=== PATIENT | female | born 1940 | race Caucasian/White ===

== ENCOUNTER 2016-11-30 13:04 | Inpatient (IN) | payer MEDICARE ==
[2016-11-30] VITALS (16 sets, daily range): BP systolic 82–220; BP diastolic 44–88; PULSE 77–102; RESP 12–16; TEMP 97.8–98.1; O2SAT 95–100
[~2016-11-30] VITALS: Ht 154.9 cm; Wt 39.5 kg
[~2016-11-30 13:04] MED LIST: ALPR-138 PO; ASPI1TAB7 PO; AZIT250T43 PO; CALCTAB98 PO; CLAR10TA7 PO; CYCL-36 PO; FERR325T PO; LEXA10TA PO; LORTA5 PO; LOSA50TA PO; MEGE40TA PO; METO25 PO; ONDAN4 PO; PRIL20CA PO; PROC10TA4 PO; SODI650T PO; STOO100T PO; TAB-TAB PO; TEMA15 PO; ULTR50TA PO
[2016-11-30] MEDS ORDERED: SODIUM CHLOR 0.9% 1000 ML INJ 1,000 ML IV SCH (14:33)
[2016-11-30] MEDS ORDERED: NALOXONE HCL 2 MG/2 ML VIAL ONE (14:35)
[2016-11-30] MEDS ORDERED: SUCCINYLCHOLINE CHLORIDE 200 MG/10 ML VIAL ONE (14:40)
[2016-11-30] MEDS ORDERED: ETOMIDATE 20 MG/10 ML VIAL ONE (14:40)
[2016-11-30] MEDS ORDERED: SODIUM CHLORIDE 0.9% FLUSH 10 ML FLUSH IVF PRN (14:45)
[2016-11-30] MEDS ORDERED: NALOXONE HCL 2 MG/2 ML VIAL IV PUSH ONE (14:45)
[2016-11-30] MEDS ORDERED: ETOMIDATE 20 MG/10 ML VIAL IVP ONE (15:00)
[2016-11-30] MEDS ORDERED: SUCCINYLCHOLINE CHLORIDE 200 MG/10 ML VIAL IVP ONE (15:00)
[2016-11-30 15:17] LABS: AUTOMATED NEUTROPHIL # 11.5 TH/MM3 (1.8-7.7); BASOPHIL # 0.1 TH/MM3 (0-0.2); BASOPHIL % 0.5 % (0.0-2.0); EOSINOPHIL # 0.1 TH/MM3 (0-0.4); EOSINOPHIL % 0.9 % (0.0-4.0); HEMATOCRIT 28.4 % (35.0-46.0); HEMO FLAGS DIFF FINAL; LYMPHOCYTE # 2.3 TH/MM3 (1.0-4.8); MEAN CELL VOLUME 88.5 FL (80.0-100.0); MEAN CORPUSCULAR HEMOGLOBIN 28.2 PG (27.0-34.0); MEAN CORPUSCULAR HGB CONC 31.8 % (32.0-36.0); NEUT % 76.6 % (16.0-70.0); PLATELET COUNT 534 TH/MM3 (150-450); RED BLOOD COUNT 3.21 MIL/MM3 (4.00-5.30); RED CELL DISTRIBUTION WIDTH 15.9 % (11.6-17.2); WHITE BLOOD COUNT 15.1 TH/MM3 (4.0-11.0)
[2016-11-30 15:23] LABS: BACTERIA, URINE RARE /hpf; BLOOD, URINE NEG (NEG); GLUCOSE,URINE NEG (NEG); GRANULAR CAST, URINE 1 /lpf; KETONE, URINE NEG (NEG); MUCUS URINE FEW /lpf (OCC); NITRITE,URINE NEG (NEG); URINE COLOR YELLOW (YELLW/STRAW)
[2016-11-30 15:24] LABS: COMMENT (UR) CATH-CULTURE IND; CULTURE IF INDICATED CATH CULTURE IND
[2016-11-30 15:36] LABS: APTT (PATIENT) 21.9 SEC (24.3-30.1); PROTHROMBIN TIME - PATIENT 10.9 SEC (9.8-11.6)
--- NOTE | 2016-11-30 15:43 | RADRPT ---
EXAM DATE/TIME: 11/30/2016 15:06 [facility] COMPARISON: CHEST SINGLE AP, March 08, 2015, 2:26. INDICATIONS : Weakness, intubation. MEDICAL HISTORY : Cardiovascular disease. Hypertension SURGICAL HISTORY : None. ENCOUNTER: Initial ACUITY: 1 day PAIN SCORE: Non-responsive. LOCATION: Bilateral chest FINDINGS: There is amorphous calcification involving the left rotator cuff. Slight focal consolidation is seen in the left lung base posteriorly. Heart and mediastinum are unremarkable for technique. There are at herosclerotic calcifications involving the visualized aorta chronic in nature. CONCLUSION: Left lung base consolidation. Rey Hernandez MD on November 30, 2016 at 15:39 Board Certified Radiologist. This report was verified electronically.
[2016-11-30 15:47] LABS: BLOOD GAS BASE EXCESS -12.5 mmol/L (-2-2); BLOOD GAS CARBOXYHEMOGLOBIN 0.6 % (0-4); BLOOD GAS HCO3 12 mmol/L (22-26); BLOOD GAS METHEMOGLOBIN 0.3 % (0-2); BLOOD GAS O2 HGB SATURATION 99 % (90-100); BLOOD GAS PCO2 23 mmHg (38-42); BLOOD GAS PO2 452 mmHG (61-120); BLOOD GAS TOTAL HGB 8.5 G/DL (12.0-16.0); TEMP CORR TO 98.6
[2016-11-30 15:49] LABS: CRITICAL VALUE YES; DRAW SITE LT RADIAL; FIO2 100 %; NUMBER OF ARTERIAL PUNCTURES 1; OXYGEN DEVICE VENTILATOR; STAT YES; ULNAR PULSE Y; VENT SETTINGS AC/VT400/R14/PEEP5
[2016-11-30 15:52] LABS: ACETAMINOPHEN 25.4 MCG/ML (10.0-30.0); ALKALINE PHOSPHATASE 59 U/L (45-117); ALT (GPT) 9 U/L (10-53); ANION GAP 14 MEQ/L (5-15); AST (GOT) 11 U/L (15-37); BICARBONATE 14.8 MEQ/L (21.0-32.0); BLOOD UREA NITROGEN 16 MG/DL (7-18); CHLORIDE 108 MEQ/L (98-107); GLOMERULAR FILTRATION RATE 70 ML/MIN (>89); SODIUM (NA) 137 MEQ/L (136-145); TOTAL BILIRUBIN ADULT 0.2 MG/DL (0.2-1.0)
[2016-11-30 15:54] LABS: POTASSIUM 2.6 MEQ/L (3.5-5.1)
[2016-11-30] MEDS ORDERED: VANCOMYCIN INJ 1,000 MG in SODIUM CHLOR 0.9% 250 ML INJ 250 ML IV ONE (16:00)
[2016-11-30] MEDS ORDERED: SODIUM CHLOR 0.9% 1000 ML INJ 1,000 ML IV ONE (16:00)
[2016-11-30] MEDS ORDERED: CEFEPIME INJ 2,000 MG in SODIUM CHLORIDE 0.9% INJ 100 ML IV ONE (16:00)
--- NOTE | 2016-11-30 16:20 | PD ---
HPI Chief Complaint: Altered Mental Status Time Seen by Provider: 14:33 Travel History International Travel<30 days: No Contact w/Intl Traveler<30days: No Traveled to known affect area: No History of Present Illness HPI 76 year-old woman presents to the emergency department complaining of lethargy. Apparently patient was relatively normal this morning. Family members a roommate called this afternoon after they found her progressively less responsive. She had her medications with her including pain pills and benzodiazepines. Speaking with the daughter, they report that she went with her to her last primary care physician several days ago and they were in a try to wean her down on her medicines. With EMS patient did intermittently gets some endorsement of intentional overdose. On arrival to the ED, patient is completely obtunded, with no response to any stimuli. She is unable to provide any additional history. History Past Medical History Narrative Medical Hypertension Anemia GERD Menopausal: Yes Social History Alcohol Use: Yes (occasionally ) Tobacco Use: No Allergies-Medications (Allergen,Severity, Reaction): Coded Allergies: Cipro (Unverified Allergy, Severe, THRUSH, 10/05/15) Demerol (Verified Allergy, Severe, Nausea/Vomiting, 10/05/15) Lortab (Verified Allergy, Severe, convulsion, 10/05/15) Morphine (Verified Allergy, Severe, VOMITING, 10/05/15) Percocet (Verified Allergy, Severe, CONVULSION, 10/05/15) Reglan (Verified Adverse Reaction, Intermediate, ANXIETY, 10/05/15) *MDRO Multi-Drug Resistant Organism (Verified Adverse Reaction, Unknown, ) 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 Reported Meds & Prescriptions Reported Meds & Active Scripts Active Reported Allergy (Loratadine) 10 Mg Tab 10 Multi Vitamin (Multiple Vitamin) 1 Tab Tab 1 Tab PO DAILY Aspirin 81 Mg Chew 81 Mg CHEW DAILY Calcium (Oyster Shell) 500 Mg Tab Stool Softener (Docusate Sodium) 100 Mg Cap Iron (Ferrous Fumarate) 18 Mg Tab 18 Mg PO BID Alprazolam 0.25 Mg Tab 0.25 Mg PO Q4H PRN Megestrol (Megestrol Acetate) 40 Mg Tab 40 Mg PO QID Sodium Bicarbonate 650 Mg Tab 650 Mg PO BIDPC Flexeril (Cyclobenzaprine HCl) 10 Mg Tab 10 Mg PO TID Metoprolol Tartrate 25 Mg Tab 25 Mg PO BID Prochlorperazine Maleate 10 Mg Tab 10 Mg PO Q4H PRN Temazepam 15 Mg Cap 15 Mg PO HS PRN Hydrocodone-Acetaminophen 5-325 mg Tab 1 Tab PO Q4H PRN Losartan (Losartan Potassium) 50 Mg Tab 50 Mg PO DAILY Omeprazole 20 Mg Tab 20 Mg PO DAILY Zinc (Zinc Gluconate) 50 Mg Tab B Complex Plus (B-Complex W/ Folic Acid) 1 Tab 1 Tab PO Review of Systems Except as stated in HPI: all other systems reviewed are Neg Physical Exam Narrative GENERAL: Ill-appearing 76 year-old woman, obtunded, pale. SKIN: Focused skin assessment cool. Dry. HEAD: Atraumatic. Normocephalic. EYES: Pupils equal and round. Pupils are about 2-3 mm. No scleral icterus. No injection or drainage. ENT: No nasal bleeding or discharge. Mucous membranes pink and moist. NECK: Trachea midline. No JVD. CARDIOVASCULAR: Regular rate and rhythm. No murmur appreciated. RESPIRATORY: Respiratory rate about 12-14, ventilation appears adequate. GASTROINTESTINAL: Abdomen flat and soft. No grimace with deep palpation. MUSCULOSKELETAL: No obvious deformities. Decreased muscle bulk. No edema. NEUROLOGICAL: Obtunded. No response to any stimuli. Data Data Last Documented VS Vital Signs Date Time Temp Pulse Resp B/P Pulse Ox O2 Delivery O2 Flow Rate FiO2 11/30/16 17:00 80 14 132/62 100 Auto-Vent 50 11/30/16 14:40 2 11/30/16 14:32 97.8 Orders Electrocardiogram (11/30/16 14:33) Complete Blood Count With Diff (11/30/16 14:33) Comprehensive Metabolic Panel (11/30/16 14:33) Prothrombin Time / Inr (Pt) (11/30/16 14:33) Act Partial Throm Time (Ptt) (11/30/16 14:33) Troponin I (11/30/16 14:33) Thyroid Stimulating Hormone (11/30/16 14:33) Lactic Acid Sepsis Protocol (11/30/16 14:33) Urinalysis - C+S If Indicated (11/30/16 14:33) Arterial Blood Gas (Abg) (11/30/16 14:33) Chest, Single Ap (11/30/16 14:33) Ct Brain W/O Iv Contrast(Rout) (11/30/16 14:33) Blood Glucose (11/30/16 14:33) Ecg Monitoring (11/30/16 14:33) Iv Access Insert/Monitor (11/30/16 14:33) Oximetry (11/30/16 14:33) Sodium Chloride 0.9% Flush (Ns Flush) (11/30/16 14:45) Sodium Chlor 0.9% 1000 Ml Inj (Ns 1000 M (11/30/16 14:33) Drug Screen, Random Urine (11/30/16 14:33) Alcohol (Ethanol) (11/30/16 14:33) Salicylates (Aspirin) (11/30/16 14:33) Tylenol (Acetaminophen) (11/30/16 14:33) Naloxone Inj (Narcan Inj) (11/30/16 14:45) Naloxone Inj (Narcan Inj) (11/30/16 14:35) Etomidate Inj (Amidate Inj) (11/30/16 14:40) Succinylcholine Inj (Quelicin Inj) (11/30/16 14:40) Ng Gastric Tube Insert/Monitor (11/30/16 15:00) Urinary Catheter Insert/Apply (11/30/16 15:00) Etomidate Inj (Amidate Inj) (11/30/16 15:00) Succinylcholine Inj (Quelicin Inj) (11/30/16 15:00) Restraints Non-Violent ODESSA.Q3H (11/30/16 15:00) Urine Culture (11/30/16 14:55) Blood Culture (11/30/16 15:57) Vancomycin Inj (Vancomycin Inj) (11/30/16 16:00) Cefepime Inj (Maxipime Inj) (11/30/16 16:00) Sodium Chlor 0.9% 1000 Ml Inj (Ns 1000 M (11/30/16 16:00) Potassium Chlor 20 Meq Premix (Kcl 20 Me (11/30/16 16:00) Admit To Inpatient (11/30/16 ) Code Status (11/30/16 17:06) Vital Signs (Adult) ODESSA.Q1H (11/30/16 17:06) Activity Bed Rest (11/30/16 17:06) ^ Elevate Head Of Bed (11/30/16 17:06) Neuro Checks . ORDERED (11/30/16 17:06) Intake + Output Q1H (11/30/16 17:06) Bedside Glucose ODESSA.BGM (11/30/16 17:06) Pantoprazole Inj (Protonix Inj) (11/30/16 17:15) Albuterol-Ipratropium Neb (Duoneb Neb) (11/30/16 17:15) Complete Blood Count With Diff (12/01/16 04:00) Basic Metabolic Panel (Bmp) (12/01/16 04:00) Magnesium (Mg) (12/01/16 04:00) Phosphorus (Po4) (12/01/16 04:00) Sputum Culture And Gram Stain (11/30/16 17:06) Camouflage Specialist / Telemetry ODESSA.Q8H (11/30/16 17:06) Scd Bilateral/Knee High ODESSA.BID (11/30/16 17:06) ^ Initiate Protocol (11/30/16 17:06) ^ Instruction (11/30/16 17:06) [facility] [place] [facility] [place] (11/30/16 17:15) Chlorhexidine 2% Cloth (Chlorhexidine 2% (12/01/16 04:00) Chlorhexidine 2% Cloth (Chlorhexidine 2% (11/30/16 17:15) Mrsa Pcr Surveillance (11/30/16 17:06) Inpatient Certification (11/30/16 ) ^ Medication Admin Instruction (11/30/16 17:08) Notify Dr: Other (11/30/16 17:08) Phosphorus (Po4) (11/30/16 17:08) Potassium Chlor 40 Meq Premix (Kcl 40 Me (11/30/16 17:15) Potassium Chlor 20 Meq Premix (Kcl 20 Me (11/30/16 17:15) Potassium Chloride Eff (K-Lyte Cl Eff) (11/30/16 17:15) Potassium Chlor 40 Meq Premix (Kcl 40 Me (11/30/16 17:15) Potassium Chlor 20 Meq Premix (Kcl 20 Me (11/30/16 17:15) Magnesium Sulfate Inj (Magnesium Sulfate (11/30/16 17:15) Magnesium Oxide (Mag-Ox) (11/30/16 17:15) Magnesium Sulfate Inj (Magnesium Sulfate (11/30/16 17:15) Potassium Phosphate (K-Phos) (11/30/16 17:15) Sodium Phosphate Inj (Sodium Phosphate I (11/30/16 17:15) Potassium Phosphate (K-Phos) (11/30/16 17:15) Potassium Phosphate Inj (Potassium Phosp (11/30/16 17:15) Drug Screen, Random Urine (11/30/16 17:10) Legionella Urinary Antigen (11/30/16 17:10) Pneumococcal Urinary Antigen (11/30/16 17:10) Blood Glucose Goal (Criteria) (11/30/16 17:10) Hypoglycemia 51 - 69 Mg/Dl (11/30/16 17:10) Hypoglycemia 50 Mg/Dl Or < (11/30/16 17:10) Notify Dr: Other (11/30/16 17:10) Dextrose 50% In [place] (Vial) Inj (D50w (Vi (11/30/16 17:15) Glucagon Inj (Glucagon Inj) (11/30/16 17:15) Insulin Human Reg Supp Scale (Novolin R (11/30/16 18:00) Piperacil-Tazo 4.5 Gm Premix (Zosyn 4.5 (11/30/16 17:15) Arterial Blood Gas (Abg) (11/30/16 20:00) Sodium Bicarbonate 8.4% Inj (Sodium Bica (11/30/16 17:15) Basic Metabolic Panel (Bmp) (11/30/16 22:00) Vancomycin Inj (Vancomycin Inj) (12/01/16 05:00) Labs Laboratory Tests Test 11/30/16 11/30/16 11/30/16 11/30/16 14:45 14:55 15:30 16:10 Salicylates Level LESS THAN 1.7 MG/DL White Blood Count 15.1 TH/MM3 Red Blood Count 3.21 MIL/MM3 Hemoglobin 9.0 GM/DL Hematocrit 28.4 % Mean Corpuscular Volume 88.5 FL Mean Corpuscular Hemoglobin 28.2 PG Mean Corpuscular Hemoglobin 31.8 % Concent Red Cell Distribution Width 15.9 % Platelet Count 534 TH/MM3 Mean Platelet Volume 8.1 FL Neutrophils (%) (Auto) 76.6 % Lymphocytes (%) (Auto) 15.0 % Monocytes (%) (Auto) 7.0 % Eosinophils (%) (Auto) 0.9 % Basophils (%) (Auto) 0.5 % Neutrophils # (Auto) 11.5 TH/MM3 Lymphocytes # (Auto) 2.3 TH/MM3 Monocytes # (Auto) 1.1 TH/MM3 Eosinophils # (Auto) 0.1 TH/MM3 Basophils # (Auto) 0.1 TH/MM3 CBC Comment DIFF FINAL Differential Comment Prothrombin Time 10.9 SEC Prothromb Time International 1.0 RATIO Ratio Activated Partial 21.9 SEC Thromboplast Time Urine Color YELLOW Urine Turbidity HAZY Urine pH 6.0 Urine Specific [place] 1.017 Urine Protein NEG mg/dL Urine Glucose (UA) NEG mg/dL Urine Ketones NEG mg/dL Urine Occult Blood NEG Urine Nitrite NEG Urine Bilirubin NEG Urine Urobilinogen LESS THAN 2.0 MG/DL Urine Leukocyte Esterase NEG Urine RBC 6 /hpf Urine WBC 3 /hpf Urine Bacteria RARE /hpf Urine Granular Casts 1 /lpf Urine Mucus FEW /lpf Microscopic Urinalysis Comment CATH-CULTURE IND Sodium Level 137 MEQ/L Potassium Level 2.6 MEQ/L Chloride Level 108 MEQ/L Carbon Dioxide Level 14.8 MEQ/L Anion Gap 14 MEQ/L Blood Urea Nitrogen 16 MG/DL Creatinine 0.79 MG/DL Estimat Glomerular Filtration 70 ML/MIN Rate Random Glucose 118 MG/DL Calcium Level 7.5 MG/DL Total Bilirubin 0.2 MG/DL Aspartate Amino Transf 11 U/L (AST/SGOT) Alanine Aminotransferase 9 U/L (ALT/SGPT) Alkaline Phosphatase 59 U/L Troponin I LESS THAN 0.02 NG/ML Total Protein 4.8 GM/DL Albumin 2.0 GM/DL Thyroid Stimulating Hormone 1.220 uIU/ML 3rd Gen Acetaminophen Level 25.4 MCG/ML Ethyl Alcohol Level LESS THAN 3 MG/DL Blood Gas Puncture Site LT RADIAL Blood Gas Patient Temperature 98.6 Blood Gas HCO3 12 mmol/L Blood Gas Base Excess -12.5 mmol/L Blood Gas Oxygen Saturation 99 % Arterial Blood pH 7.35 Arterial Blood Partial 23 mmHg Pressure CO2 Arterial Blood Partial 452 mmHG Pressure O2 Arterial Blood Oxygen Content 13.0 Vol % Arterial Blood 0.6 % Carboxyhemoglobin Arterial Blood Methemoglobin 0.3 % Blood Gas Hemoglobin 8.5 G/DL Oxygen Delivery Device VENTILATOR Blood Gas Ventilator Setting AC/VT400/R14/PEEP5 Blood Gas Inspired Oxygen 100 % Lactic Acid Level 1.7 mmol/L MDM Medical Decision Making Medical Screen Exam Complete: Yes Emergency Medical Condition: Yes Interpretation(s) LABS: CBC remarkable for mild leukocytosis, mild to moderate anemia. CMP low potassium, low bicarbonate, TSH normal Coags unremarkable Salicylates negative Acetaminophen 25.4 Alcohol less than 3 UA unremarkable ABG 7.35/23/452/12, base excess -12.5 Chest x-ray: Left lung base consolidation. My review of EKG: Normal sinus rhythm at rate of 78, normal axis, normal, no ischemia. Differential Diagnosis Overdose, stroke, bleed, infection, other Narrative Course medical decision making This 76 year-old woman who presented to the emergency department with increasing lethargy. She was obtunded when she presented to the ED. She is breathing adequately but had no gag reflex, was tolerating an oral airway, and was imminent risk for not protecting her airway. She was given 2 mg of Narcan but without significant improvement. Still no gag reflex. Given her condition , I thought the most prudent thing to do would be to proceed with intubation for airway protection. She was intubated with 20 of the etomidate and 100 mg succinylcholine. She tolerated well. Studies show white blood cell count is elevated, she has a metabolic acidosis, she'll be empirically covered for sepsis given some infiltrate on her chest x-ray. Patient be admitted to the ICU for overdose and possible aspiration. Critical Care Narrative Aggregate critical care time was 35 minutes. Time to perform other separately billable procedures was not included in the critical care time. My time did not include minutes spent treating any other patients simultaneously or on activities that did not directly contribute to the patient's treatment. The services I provided to this patient were to treat and/or prevent clinically significant deterioration that could result in: , respiratory failure, unrecognized head injury, unrecognized stroke. I provided critical care services requiring my management, as noted below: Chart data review, documentation time, medication orders and management, vital sign assessments/reviewing monitor data, ordering and reviewing lab tests, ordering and interpreting/reviewing x-rays and diagnostic studies, care of the patient and discussion of the patient with the admitting physicians. Procedures Procedure Narrative INTUBATION: The patient was put in optimal position for the procedure. Rapid sequence intubation was initiated by me using 20 milligrams of etomidate IV and 100 milligrams of succinylcholine IV. The patient was intubated with a 7.0 cuffed endotracheal tube. Tube placement was confirmed by visualization of the tube and balloon passing through the cords, capnometry and subsequent chest x- ray. Breath sounds were equal and well aerated bilaterally postintubation. No breath sounds over stomach. Patient tolerated procedure well. Diagnosis Primary Impression: Coma Qualified Code: R40.2432 - Patty coma scale total score 3-8, at arrival to emergency department Admitting Information Admitting Physician Requests: Admit Vu Villatoro MD Nov 30, 2016 16:20
[2016-11-30] MEDS: POTASSIUM CHLOR 20 MEQ PREMIX 100 ML IV SCH ×2 (16:45→18:50)
[2016-11-30] MEDS ORDERED: POTASSIUM CHLORIDE 25 MEQ EFFERVESCENT TAB PO PRN (17:15)
[2016-11-30] MEDS ORDERED: MISCELLANEOUS NURSING INFORMATION XX SCH (17:15)
[2016-11-30] MEDS ORDERED: POTASSIUM PHOSPHATE MONOBASIC 500 MG TAB PO PRN (17:15)
[2016-11-30] MEDS ORDERED: MAGNESIUM OXIDE 400 MG TAB PO PRN (17:15)
[2016-11-30] MEDS ORDERED: GLUCAGON 1 MG/ML VIAL OTHER PRN (17:15)
[2016-11-30] MEDS ORDERED: SODIUM PHOSPHATE INJ 30 MMOL in SODIUM CHLOR 0.9% 250 ML INJ 240 ML IV PRN (17:15)
[2016-11-30] MEDS ORDERED: POTASSIUM CHLOR 40 MEQ PREMIX 100 ML IV PRN ×2 (17:15)
[2016-11-30] MEDS ORDERED: POTASSIUM PHOSPHATE MONOBASIC 500 MG TAB PO/TUBE PRN (17:15)
[2016-11-30] MEDS ORDERED: SODIUM BICARBONATE 8.4% INJ 50 MEQ/50 ML SYR IV PUSH ONE (17:15)
[2016-11-30] MEDS: RESP: ALBUTEROL 2.5 MG/IPRATROPIUM 0.5 MG NEB (SCH) INH ×2 (17:15→20:55)
[2016-11-30] MEDS ORDERED: CHLORHEXIDINE GLUCONATE 2 % 1 PACK (2 CLOTHS) TOP PRN (17:15)
[2016-11-30] MEDS ORDERED: POTASSIUM PHOSPHATE INJ 30 MMOL in SODIUM CHLOR 0.9% 250 ML INJ 250 ML IV PRN (17:15)
[2016-11-30] MEDS ORDERED: MAGNESIUM SULFATE INJ 2 GM in SODIUM CHLORIDE 0.9% INJ 96 ML IV PRN (17:15)
[2016-11-30] MEDS ORDERED: POTASSIUM CHLOR 20 MEQ PREMIX 100 ML IV PRN (17:15)
[2016-11-30] MEDS ORDERED: DEXTROSE 50% IN WATER 50 ML VIAL(D50) IV PUSH PRN (17:15)
[2016-11-30] MEDS ORDERED: MAGNESIUM SULFATE INJ 4 GM in SODIUM CHLORIDE 0.9% INJ 92 ML IV PRN (17:15)
[2016-11-30] MEDS ORDERED: STOO100C (17:23)
[2016-11-30] MEDS ORDERED: CALC500T35 (17:23)
[2016-11-30] MEDS ORDERED: CHEL50TA (17:23)
[2016-11-30] MEDS ORDERED: CYCL1TAB29 PO (17:23)
[2016-11-30] MEDS ORDERED: LOSA50TA PO (17:23)
[2016-11-30] MEDS ORDERED: LORA-520 (17:23)
[2016-11-30] MEDS ORDERED: HYDR-3516 PO (17:23)
[2016-11-30] MEDS ORDERED: OMEP20TA PO (17:23)
[2016-11-30] MEDS ORDERED: TEMA15CA PO (17:23)
[2016-11-30] MEDS ORDERED: IRON18TA2 PO (17:23)
[2016-11-30] MEDS ORDERED: SODI650T PO (17:23)
[2016-11-30] MEDS ORDERED: ASPI81CH CHEW (17:23)
[2016-11-30] MEDS ORDERED: MEGE40TA PO (17:23)
[2016-11-30] MEDS ORDERED: METO25TA3 PO (17:23)
[2016-11-30] MEDS ORDERED: B COTAB PO (17:23)
[2016-11-30] MEDS ORDERED: PROC10TA PO (17:23)
[2016-11-30] MEDS ORDERED: MULT-135 PO (17:23)
[2016-11-30] MEDS ORDERED: ALPR0.25 PO (17:23)
[2016-11-30] MEDS: INSULIN NovoLIN REGULAR SUPPLEMENTAL SCALE SQ SCH (18:00)
--- NOTE | 2016-11-30 18:05 | EKG ---
Date Performed: 11/30/2016 Time Performed: 15:47:57 PTAGE: 76 years EKG: Sinus rhythm NORMAL ECG COMPARED TO PRIOR ELECTROCARDIOGRAM, Rate has slowed. PREVIOUS TRACING : 04/21/2015 14.45 DOCTOR: Paloo Desai Interpretating Date/Time 11/30/2016 18:04:18
[2016-11-30] MEDS: SODIUM BICARBONATE 8.4% INJ 100 MEQ in DEXTROSE 5% IN WATE 1000ML INJ 1,000 ML IV SCH ×2 (18:41)
[2016-11-30] MEDS: PANTOPRAZOLE SODIUM 40 MG VIAL IV SCH (18:41)
[2016-11-30] MEDS: PIPERACIL-TAZO 4.5 GM PREMIX 100 ML IV SCH (18:51)
[2016-11-30] MEDS: PROPOFOL 1000 MG/100 ML INJ 100 ML IV SCH (18:56)
--- NOTE | 2016-11-30 18:57 | MH ---
cc: NEIL SARAH M.D. DATE OF ADMISSION 11/30/2016 DATE OF 1940 HISTORY OF THE PRESENT ILLNESS The patient is a 76-year-old female with past medical history of hypertension, anemia, gastroesophageal reflux disease who presented to [facility] ED with history of lethargy and altered mental status. Family found her progressively less responsive throughout the day. She has been on pain medications including benzodiazepines. On arrival to the ER she was completely obtunded with no response to any stimuli. The patient was subsequently intubated with etomidate, succinylcholine and placed on full mechanical ventilation. In addition she was given Narcan 2 mg IV in the ER with no response. ABG post intubation showed a pH of 7.35, CO2 23, pAO2 of 452, bicarb 12, saturation of 99%. On arrival she was hypertensive with a systolic blood pressure of 170/200 and a chest x-ray post intubation showed left lung base consolidation. She was given cefepime and vancomycin in the ER. Her laboratory data significant for leukocytosis with a WBC of 15.1, hyperkalemia, potassium level of 2.6 and a bicarb of 14.8 on the BMP. Her lactic acid level measured at 1.7. PAST MEDICAL HISTORY Significant for: 1. Hypertension. 2. Anemia. 3. Gastroesophageal reflux disease. 4. Osteopenia. 5. Osteoarthritis. 6. Vitamin D deficiency. PAST SURGICAL HISTORY 1. Previous Jackie fundoplication for gastroesophageal reflux disease. 2. Previous arthroscopy left knee. 3. Left breast lumpectomy. 4. Previous right total knee arthroplasty. 5. Previous cholecystectomy. 6. Previous right rotator cuff repair. 7. Previous L4-L5 decompressive laminectomy. 8. Fusion with fixation in September 2009. FAMILY HISTORY COPD, CVA, Parkinson's disease runs in the family. SOCIAL HISTORY The patient has remote history of smoking. MEDICATIONS Reported medications include: 1. Losartan. 2. Sodium bicarb. 3. Megestrol. 4. Xanax. 5. Temazepam. 6. Metoprolol. 7. Ferrous sulfate. 8. Vitamin B complex with folic acid. 9. Multivitamins. 10. Aspirin. 11. Omeprazole. REVIEW OF SYSTEMS As per HPI. The rest of the review of systems limited as the patient is intubated. PHYSICAL EXAMINATION GENERAL: A 76-year-old female intubated for airway protection. VITAL SIGNS: Temperature 97.8, pulse of 81, blood pressure 132/62, saturation 100%. Vent settings assist control rate of 14, tidal volume 400, PEEP of 5, FIO2 50%. HEENT: Atraumatic, normocephalic. Pupils equal, round and reactive to light and accommodation. Extraocular muscles intact. Conjunctivae pink. Nonicteric sclerae. Oral mucosa within normal. NECK: Supple. No JVD, adenopathy or thyromegaly. Trachea midline. CARDIOVASCULAR: Regular rate and rhythm. Normal S1-S2. No murmurs, rubs or gallops noted. LUNGS: Pulmonary exam bilateral equal air entry. No rales or wheezing. ABDOMEN: Soft, nontender. No distension. Positive bowel sounds. EXTREMITIES: No cyanosis, clubbing or edema. NEUROLOGIC: Intubated. Unresponsive. LABORATORY DATA WBC 15.1, hemoglobin 9, hematocrit 28, platelet count 534. Sodium 137, potassium 2.6, chloride 108, CO2 14, BUN 16, creatinine 0.79, glucose 118, lactic acid 1.7. Troponin less than 0.02. Albumin 2. TSH 1.22. INR 1.0, PT 10.9, PTT 21.9. IMAGING Radiographic studies, a chest x-ray showed left lung base consolidation. IMPRESSION 1. Vent dependent respiratory failure. 2. Altered mental status. 3. Left lung base consolidation. 4. Leukocytosis. 5. Anemia. 6. Hypokalemia. 7. Hypertension. 8. Gastroesophageal reflux disease. RECOMMENDATIONS 1. Monitor neuro status closely and avoid any sedatives. The patient is for CT scan of the brain without contrast to rule out acute intracranial process. In addition we will obtain random urine drug screen. Her salicylate level was less than 1.7, Tylenol level 25.4 and alcohol level less than 3. 2. Continue with vent support and maintain sats above 92%. 3. Bronchodilators in the form of DuoNeb q.6h. We will initiate ICU vent bundle. Decrease FIO2 to 40%. 4. Monitor heart rate and blood pressure closely and maintain MAP greater than 65 mmHg. Lactic acid level measured at 1.7. 5. Monitor renal function Is and Os and electrolyte replacement per protocol. We will place on bicarb drip in form of D5W with 2 ampules of bicarb at 125 ml an hour and we will repeat BMP at 2200. Place on electrolyte replacement protocol. 6. Keep n.p.o. for now and place on Protonix 40 mg IV daily for GI prophylaxis. 7. Continue with broad-spectrum antibiotics in the form of vancomycin and Zosyn. Monitor for signs of infections which include fever and WBC. We will obtain a sputum culture with gram stain. In addition we will check a strep pneumonia and Legionella urinary antigen. Two sets of blood culture and urine culture has been performed in the ER and the patient was given vancomycin and cefepime. 8. Place on sliding scale insulin with Accu-Cheks q.6h for glycemic control. 9. Monitor CBC. 10. GI prophylaxis with Protonix 40 mg IV daily and DVT prophylaxis with SCDs. Place on chemical anticoagulation prophylaxis if CT scan of the brain is negative for acute process. Critical care time 40 minutes excluding procedures. MD SAVI Buitrago/RAJ /5:50 PM /6:38 PM
[2016-11-30 19:43] LABS: BLOOD GAS CARBOXYHEMOGLOBIN 0.3 % (0-4); BLOOD GAS HCO3 19 mmol/L (22-26); BLOOD GAS METHEMOGLOBIN 0.2 % (0-2); BLOOD GAS O2 HGB SATURATION 98 % (90-100); BLOOD GAS PCO2 26 mmHg (38-42); BLOOD GAS PO2 179 mmHG (61-120); BLOOD GAS TOTAL HGB 7.7 G/DL (12.0-16.0); TEMP CORR TO 98.6
[2016-11-30 19:44] LABS: CRITICAL VALUE NO; DRAW SITE LT RADIAL; FIO2 40 %; NUMBER OF ARTERIAL PUNCTURES 1; OXYGEN DEVICE VENTILATOR; STAT YES; ULNAR PULSE PRESENT; VENT SETTINGS AC/14/400/PEEP5
--- NOTE | 2016-11-30 22:48 | RADRPT ---
EXAM DATE/TIME: 11/30/2016 22:33 [facility] COMPARISON: CT BRAIN W/O CONTRAST, October 05, 2015, 20:23. INDICATIONS : Lethargy, unresponsive, altered mental status. RADIATION DOSE: 30.91 CTDIvol (mGy) MEDICAL HISTORY : Hypertension. Cardiovascular disease SURGICAL HISTORY : None. ENCOUNTER: Initial ACUITY: 1 day PAIN SCALE: Non-responsive LOCATION: cranial TECHNIQUE: Multiple contiguous axial images were obtained of the head. Using automated exposure control and adj ustment of the mA and/or kV according to patient size, radiation dose was kept as low as reasonably a chievable to obtain optimal diagnostic quality images. FINDINGS: CEREBRUM: The ventricles are normal for age. No evidence of midline shift, mass lesion, hemorrhage or acute in farction. No extra-axial fluid collections are seen. POSTERIOR FOSSA: The cerebellum and brainstem are intact. The 4th ventricle is midline. The cerebellopontine angle i s unremarkable. EXTRACRANIAL: The visualized portion of the orbits is intact. SKULL: The calvaria is intact. No evidence of skull fracture. CONCLUSION: Normal examination. Diffuse atrophy. Vu Brooks MD on November 30, 2016 at 22:46 Board Certified Radiologist. This report was verified electronically.
--- NOTE | 2016-11-30 22:54 | RADRPT ---
EXAM DATE/TIME: 11/30/2016 22:28 [facility] COMPARISON: CHEST SINGLE AP, November 30, 2016, 15:06. INDICATIONS : Respiratory distress. MEDICAL HISTORY : Cardiovascular disease. Hypertension. SURGICAL HISTORY : None. ENCOUNTER: Subsequent ACUITY: 1 day PAIN SCORE: Non-responsive. LOCATION: Bilateral chest FINDINGS: Endotracheal tube tip appears to have been advanced in the interim and now extends slightly down the right mainstem bronchus. No infiltrate, effusion or pneumothorax. Stable, normal heart size. CONCLUSION: Endotracheal tube tip in the right mainstem bronchus and should be pulled back several centimeters. T he patient's nurse in the emergency department, Paramjit, was notified by phone. Dima Sandoval MD on November 30, 2016 at 22:48 Board Certified Radiologist. This report was verified electronically.
[2016-12-01] VITALS (26 sets, daily range): BP systolic 76–156; BP diastolic 44–78; PULSE 91–134; RESP 11–26; TEMP 98–99.5; O2SAT 97–100
[2016-12-01] MEDS ORDERED: MIDAZOLAM 100 MG/ML INJ 100 ML ONE (00:48)
[2016-12-01] MEDS: PIPERACIL-TAZO 4.5 GM PREMIX 100 ML IV SCH ×3 (01:04→11:05)
[2016-12-01] MEDS ORDERED: MIDAZOLAM 100 MG/NS 100 ML DRIP Premix IV SCH (01:15)
[2016-12-01] MEDS: CHLORHEXIDINE GLUCONATE 2 % 1 PACK (2 CLOTHS) TOP SCH (02:00)
[2016-12-01] MEDS: RESP: ALBUTEROL 2.5 MG/IPRATROPIUM 0.5 MG NEB (SCH) INH ×4 (03:31→20:52)
[2016-12-01] MEDS: VANCOMYCIN INJ 1,000 MG in SODIUM CHLOR 0.9% 250 ML INJ 250 ML IV SCH ×2 (04:29→16:32)
[2016-12-01] MEDS: SODIUM BICARBONATE 8.4% INJ 100 MEQ in DEXTROSE 5% IN WATE 1000ML INJ 1,000 ML IV SCH ×4 (04:30→10:53)
[2016-12-01 05:04] LABS: MAGNESIUM 1.7 MG/DL (1.5-2.5)
[2016-12-01 05:09] LABS: AUTOMATED NEUTROPHIL # 15.2 TH/MM3 (1.8-7.7); BASOPHIL # 0.1 TH/MM3 (0-0.2); BASOPHIL % 0.5 % (0.0-2.0); EOSINOPHIL # 0.3 TH/MM3 (0-0.4); EOSINOPHIL % 1.6 % (0.0-4.0); HEMATOCRIT 26.1 % (35.0-46.0); HEMO FLAGS DIFF FINAL; LYMPH % 12.3 % (9.0-44.0); LYMPHOCYTE # 2.4 TH/MM3 (1.0-4.8); MEAN CELL VOLUME 90.2 FL (80.0-100.0); MEAN CORPUSCULAR HEMOGLOBIN 29.1 PG (27.0-34.0); MEAN CORPUSCULAR HGB CONC 32.2 % (32.0-36.0); MONO % 8.2 % (0.0-8.0); NEUT % 77.4 % (16.0-70.0); PLATELET COUNT 271 TH/MM3 (150-450); RED CELL DISTRIBUTION WIDTH 16.4 % (11.6-17.2); WHITE BLOOD COUNT 19.6 TH/MM3 (4.0-11.0)
[2016-12-01] MEDS: INSULIN NovoLIN REGULAR SUPPLEMENTAL SCALE SQ SCH ×5 (05:14→23:27)
[2016-12-01 05:51] LABS: AMPHETAMINE, URINE NEG (NEG); BARBITURATES, URINE NEG (NEG); COCAINE, URINE NEG (NEG)
[2016-12-01] MEDS: POTASSIUM CHLORIDE 20 MEQ PWD PACKET PO SCH ×4 (05:57→17:41)
--- NOTE | 2016-12-01 07:39 | HHI.CCPN ---
Subjective Remarks/Hospital Course The patient is a 76-year-old female with past medical history of hypertension, anemia, gastroesophageal reflux disease who presented to [facility] ED with history of lethargy and altered mental status. Family found her progressively less responsive throughout the day. She has been on pain medications including benzodiazepines. On arrival to the ER she was completely obtunded with no response to any stimuli. The patient was subsequently intubated with etomidate, succinylcholine and placed on full mechanical ventilation. In addition she was given Narcan 2 mg IV in the ER with no response. ABG post intubation showed a pH of 7.35, CO2 23, pAO2 of 452, bicarb 12, saturation of 99%. On arrival she was hypertensive with a systolic blood pressure of 170/200 and a chest x-ray post intubation showed left lung base consolidation. She was given cefepime and vancomycin in the ER. Her laboratory data significant for leukocytosis with a WBC of 15.1, hyperkalemia, potassium level of 2.6 and a bicarb of 14.8 on the BMP. Her lactic acid level measured at 1.7. 12/01 Patient is sedated with Versed and intubated. Afebrile. Objective Vital Signs Date Time Temp Pulse Resp B/P Pulse Ox O2 Delivery O2 Flow Rate FiO2 12/01/16 06:00 106 12/01/16 04:02 97 35 12/01/16 04:00 98.2 18 108/56 12/01/16 01:30 Ventilator 11/30/16 14:40 2 Intake and Output 11/30/16 11/30/16 12/01/16 08:00 16:00 00:00 Output Total 700 ml Balance -700 ml Result Diagram: 12/01/16 0404 12/01/16 0643 Other Results Laboratory Tests Test 11/30/16 11/30/16 11/30/16 11/30/16 14:45 14:55 15:30 16:10 Salicylates Level LESS THAN 1.7 MG/DL White Blood Count 15.1 TH/MM3 Red Blood Count 3.21 MIL/MM3 Hemoglobin 9.0 GM/DL Hematocrit 28.4 % Mean Corpuscular Volume 88.5 FL Mean Corpuscular Hemoglobin 28.2 PG Mean Corpuscular Hemoglobin 31.8 % Concent Red Cell Distribution Width 15.9 % Platelet Count 534 TH/MM3 Mean Platelet Volume 8.1 FL Neutrophils (%) (Auto) 76.6 % Lymphocytes (%) (Auto) 15.0 % Monocytes (%) (Auto) 7.0 % Eosinophils (%) (Auto) 0.9 % Basophils (%) (Auto) 0.5 % Neutrophils # (Auto) 11.5 TH/MM3 Lymphocytes # (Auto) 2.3 TH/MM3 Monocytes # (Auto) 1.1 TH/MM3 Eosinophils # (Auto) 0.1 TH/MM3 Basophils # (Auto) 0.1 TH/MM3 CBC Comment DIFF FINAL Differential Comment Prothrombin Time 10.9 SEC Prothromb Time International 1.0 RATIO Ratio Activated Partial 21.9 SEC Thromboplast Time Urine Color YELLOW Urine Turbidity HAZY Urine pH 6.0 Urine Specific [place] 1.017 Urine Protein NEG mg/dL Urine Glucose (UA) NEG mg/dL Urine Ketones NEG mg/dL Urine Occult Blood NEG Urine Nitrite NEG Urine Bilirubin NEG Urine Urobilinogen LESS THAN 2.0 MG/DL Urine Leukocyte Esterase NEG Urine RBC 6 /hpf Urine WBC 3 /hpf Urine Bacteria RARE /hpf Urine Granular Casts 1 /lpf Urine Mucus FEW /lpf Microscopic Urinalysis Comment CATH-CULTURE IND Sodium Level 137 MEQ/L Potassium Level 2.6 MEQ/L Chloride Level 108 MEQ/L Carbon Dioxide Level 14.8 MEQ/L Anion Gap 14 MEQ/L Blood Urea Nitrogen 16 MG/DL Creatinine 0.79 MG/DL Estimat Glomerular Filtration 70 ML/MIN Rate Random Glucose 118 MG/DL Calcium Level 7.5 MG/DL Phosphorus Level 3.7 MG/DL Total Bilirubin 0.2 MG/DL Aspartate Amino Transf 11 U/L (AST/SGOT) Alanine Aminotransferase 9 U/L (ALT/SGPT) Alkaline Phosphatase 59 U/L Troponin I LESS THAN 0.02 NG/ML Total Protein 4.8 GM/DL Albumin 2.0 GM/DL Thyroid Stimulating Hormone 1.220 uIU/ML 3rd Gen Acetaminophen Level 25.4 MCG/ML Ethyl Alcohol Level LESS THAN 3 MG/DL Blood Gas Puncture Site LT RADIAL Blood Gas Patient Temperature 98.6 Blood Gas HCO3 12 mmol/L Blood Gas Base Excess -12.5 mmol/L Blood Gas Oxygen Saturation 99 % Arterial Blood pH 7.35 Arterial Blood Partial 23 mmHg Pressure CO2 Arterial Blood Partial 452 mmHG Pressure O2 Arterial Blood Oxygen Content 13.0 Vol % Arterial Blood 0.6 % Carboxyhemoglobin Arterial Blood Methemoglobin 0.3 % Blood Gas Hemoglobin 8.5 G/DL Oxygen Delivery Device VENTILATOR Blood Gas Ventilator Setting AC/VT400/R14/PEEP5 Blood Gas Inspired Oxygen 100 % Lactic Acid Level 1.7 mmol/L Test 11/30/16 12/01/16 12/01/16 12/01/16 19:31 01:45 04:04 04:55 Blood Gas Puncture Site LT RADIAL Blood Gas Patient Temperature 98.6 Blood Gas HCO3 19 mmol/L Blood Gas Base Excess -4.0 mmol/L Blood Gas Oxygen Saturation 98 % Arterial Blood pH 7.47 Arterial Blood Partial 26 mmHg Pressure CO2 Arterial Blood Partial 179 mmHG Pressure O2 Arterial Blood Oxygen Content 11.0 Vol % Arterial Blood 0.3 % Carboxyhemoglobin Arterial Blood Methemoglobin 0.2 % Blood Gas Hemoglobin 7.7 G/DL Oxygen Delivery Device VENTILATOR Blood Gas Ventilator Setting AC/14/400/PEEP5 Blood Gas Inspired Oxygen 40 % Nasal Screen MRSA (PCR) NEGATIVE White Blood Count 19.6 TH/MM3 Red Blood Count 2.90 MIL/MM3 Hemoglobin 8.4 GM/DL Hematocrit 26.1 % Mean Corpuscular Volume 90.2 FL Mean Corpuscular Hemoglobin 29.1 PG Mean Corpuscular Hemoglobin 32.2 % Concent Red Cell Distribution Width 16.4 % Platelet Count 271 TH/MM3 Mean Platelet Volume 8.5 FL Neutrophils (%) (Auto) 77.4 % Lymphocytes (%) (Auto) 12.3 % Monocytes (%) (Auto) 8.2 % Eosinophils (%) (Auto) 1.6 % Basophils (%) (Auto) 0.5 % Neutrophils # (Auto) 15.2 TH/MM3 Lymphocytes # (Auto) 2.4 TH/MM3 Monocytes # (Auto) 1.6 TH/MM3 Eosinophils # (Auto) 0.3 TH/MM3 Basophils # (Auto) 0.1 TH/MM3 CBC Comment DIFF FINAL Differential Comment Hematology Comments Urine Opiates Screen POS Urine Barbiturates Screen NEG Urine Amphetamines Screen NEG Urine Benzodiazepines Screen POS Urine Cocaine Screen NEG Urine Cannabinoids Screen NEG Test 12/01/16 06:43 Sodium Level 140 MEQ/L Potassium Level 2.5 MEQ/L Chloride Level 111 MEQ/L Carbon Dioxide Level 14.4 MEQ/L Anion Gap 15 MEQ/L Blood Urea Nitrogen 14 MG/DL Creatinine 0.79 MG/DL Estimat Glomerular Filtration 70 ML/MIN Rate Random Glucose 112 MG/DL Calcium Level 6.8 MG/DL Phosphorus Level 2.5 MG/DL Magnesium Level 1.7 MG/DL Imaging Last Impressions Head CT 11/30/16 1433 Signed Impressions: Service Date/Time: Wednesday, November 30, 2016 22:33 - CONCLUSION: Normal examination. Diffuse atrophy. Vu Brooks MD Chest X-Ray 11/30/16 1433 Signed Impressions: Service Date/Time: Wednesday, November 30, 2016 15:06 - CONCLUSION: Left lung base consolidation. Rey Hernandez MD Objective Remarks GENERAL: Patient is 76 yo intubated and sedated SKIN: Warm and dry. HEAD: Normocephalic. EYES: No scleral icterus. No injection or drainage. NECK: Supple, trachea midline. No JVD or lymphadenopathy. CARDIOVASCULAR: Regular rate and rhythm without murmurs, gallops, or rubs. RESPIRATORY: Breath sounds equal bilaterally. No accessory muscle use. GASTROINTESTINAL: Abdomen soft, non-tender, nondistended. MUSCULOSKELETAL: No cyanosis, or edema. Neuro: Sedated A/P Assessment and Plan 1. VDRF 2. Altered mental status. 3. Left lung base consolidation. 4. Leukocytosis. 5. Anemia. 6. Hypokalemia. 7. Hypertension. 8. GERD. Plan Neuro: On Versed drip for sedation. Daily sedation vacation. Monitor neuro status closely CT brain on arrival: No acte process. UDS + Opiates and Benzos Pulm: Continue with vent support and maintain sats above 92%. Bronchodilators, ICU vent bundle. Start SBT daily as nanda CV: Monitor HR and BP and maintain MAP >65 mmHg. Lactic acid level measured at 1.7. : Monitor renal function Is and Os and electrolyte replacement per protocol. WIll need K replacement today Continue with bicarb drip- D5W with 2 ampules of bicarb at 125 ml an hour GI: Keep n.p.o. for now, on Protonix 40 mg IV daily for GI prophylaxis. Start tube feeds today if remains intubated. ID: Continue with abx( vancomycin,Zosyn, add Zithromax). Monitor for signs of infections(fever and WBC). We Obtain a sputum culture, follow up on strep pneumonia, Legionella urinary antigen and Blood cultures Endo:SSI with Accu-Cheks q.6h for glycemic control. Heme: Monitor CBC. GI prophylaxis with Protonix 40 mg IV daily and DVT prophylaxis with SCDs/ Heparin SQ Level 3 Ken [place] MD Dec 01, 2016 07:39
[2016-12-01 07:50] LABS: CALCIUM-PROTEIN CORRECTED 8.5 MG/DL (8.5-10.1)
[2016-12-01 07:51] LABS: BICARBONATE 20.3 MEQ/L (21.0-32.0)
[2016-12-01 07:53] LABS: POTASSIUM 2.5 MEQ/L (3.5-5.1)
--- NOTE | 2016-12-01 08:25 | RADRPT ---
EXAM DATE/TIME: 12/01/2016 07:48 [place] COMPARISON: CHEST SINGLE AP, November 30, 2016, 22:28. INDICATIONS : VDRF. MEDICAL HISTORY : Cardiovascular disease. Hypertension SURGICAL HISTORY : None. ENCOUNTER: Subsequent ACUITY: 3 days PAIN SCORE: Non-responsive. LOCATION: Bilateral chest FINDINGS: The endotracheal tube remains directed into the right mainstem bronchus. Nasogastric tube is stable p osition. Lungs remain well expanded and clear. Heart mediastinal structures are stable. CONCLUSION: Tip of endotracheal tube remains at the orifice of the right mainstem bronchus. Otherwise stable chest. No evidence of acute air space disease or congestion. Khadar Amaro MD on December 01, 2016 at 8:22 Board Certified Radiologist. This report was verified electronically.
[2016-12-01] MEDS: AZITHROMYCIN INJ 500 MG in SODIUM CHLOR 0.9% 250 ML INJ 250 ML IV SCH (08:54)
[2016-12-01] MEDS: PANTOPRAZOLE SODIUM 40 MG VIAL IV SCH (08:55)
[2016-12-01] MEDS ORDERED: SODIUM CHLORID 0.9% 500 ML INJ 500 ML IV ONE (11:30)
[2016-12-01] MEDS: DEXT 5%-NACL 0.9% 1000 ML INJ 1,000 ML IV SCH (12:15)
[2016-12-01 15:09] LABS: BICARBONATE 19.4 MEQ/L (21.0-32.0)
[2016-12-01 15:20] LABS: CALCIUM-PROTEIN CORRECTED 7.9 MG/DL (8.5-10.1)
[2016-12-01 15:23] LABS: POTASSIUM 2.7 MEQ/L (3.5-5.1)
[2016-12-01] MEDS: HEPARIN SODIUM - SQ 10,000 UNITS/ML VIAL SQ SCH (16:32)
[2016-12-01] MEDS ORDERED: Vancomycin Consult Pharmacy 1 EA OTHER SCH (17:00)
[2016-12-01] MEDS: PIPERACIL-TAZO 3.375 GM PREMIX 50 ML IV SCH (17:44)
[2016-12-01] MEDS ORDERED: PIPERACIL-TAZO 3.375 GM PREMIX 50 ML IV SCH (18:00)
[2016-12-01] MEDS ORDERED: CALCIUM GLUCONATE INJ 1 GM in SODIUM CHLORIDE 0.9% INJ 100 ML IV ONE (18:00)
[2016-12-01] MEDS: PROPOFOL 1000 MG/100 ML INJ 100 ML IV SCH (19:06)
[2016-12-02] VITALS (17 sets, daily range): BP systolic 114–151; BP diastolic 57–72; PULSE 91–127; RESP 18–26; TEMP 98.1–99.5; O2SAT 95–100
[2016-12-02] MEDS: PIPERACIL-TAZO 3.375 GM PREMIX 50 ML IV SCH ×5 (00:01→23:00)
[2016-12-02] MEDS: DEXT 5%-NACL 0.9% 1000 ML INJ 1,000 ML IV SCH (00:01)
[2016-12-02] MEDS: PROPOFOL 1000 MG/100 ML INJ 100 ML IV SCH (01:58)
[2016-12-02] MEDS: RESP: ALBUTEROL 2.5 MG/IPRATROPIUM 0.5 MG NEB (SCH) INH ×4 (03:21→20:46)
[2016-12-02] MEDS: CHLORHEXIDINE GLUCONATE 2 % 1 PACK (2 CLOTHS) TOP SCH ×2 (04:00→23:00)
[2016-12-02 05:19] LABS: AUTOMATED NEUTROPHIL # 13.8 TH/MM3 (1.8-7.7); BASOPHIL # 0.1 TH/MM3 (0-0.2); BASOPHIL % 0.5 % (0.0-2.0); EOSINOPHIL # 0.3 TH/MM3 (0-0.4); EOSINOPHIL % 1.9 % (0.0-4.0); HEMATOCRIT 24.6 % (35.0-46.0); HEMO FLAGS DIFF FINAL; LYMPH % 9.8 % (9.0-44.0); LYMPHOCYTE # 1.6 TH/MM3 (1.0-4.8); MEAN CELL VOLUME 87.6 FL (80.0-100.0); MEAN CORPUSCULAR HEMOGLOBIN 29.4 PG (27.0-34.0); MEAN CORPUSCULAR HGB CONC 33.5 % (32.0-36.0); MONO % 6.2 % (0.0-8.0); NEUT % 81.6 % (16.0-70.0); PLATELET COUNT 439 TH/MM3 (150-450); RED BLOOD COUNT 2.81 MIL/MM3 (4.00-5.30); RED CELL DISTRIBUTION WIDTH 16.5 % (11.6-17.2); WHITE BLOOD COUNT 16.9 TH/MM3 (4.0-11.0)
[2016-12-02] MEDS: INSULIN NovoLIN REGULAR SUPPLEMENTAL SCALE SQ SCH ×4 (06:00→22:59)
[2016-12-02 06:04] LABS: MAGNESIUM 1.6 MG/DL (1.5-2.5); POTASSIUM 3.7 MEQ/L (3.5-5.1)
[2016-12-02] MEDS: HEPARIN SODIUM - SQ 10,000 UNITS/ML VIAL SQ SCH ×2 (06:08→17:28)
[2016-12-02 06:26] LABS: CALCIUM-PROTEIN CORRECTED 8.8 MG/DL (8.5-10.1)
--- NOTE | 2016-12-02 07:38 | HHI.CCPN ---
Subjective Remarks/Hospital Course The patient is a 76-year-old female with past medical history of hypertension, anemia, gastroesophageal reflux disease who presented to [facility] ED with history of lethargy and altered mental status. Family found her progressively less responsive throughout the day. She has been on pain medications including benzodiazepines. On arrival to the ER she was completely obtunded with no response to any stimuli. The patient was subsequently intubated with etomidate, succinylcholine and placed on full mechanical ventilation. In addition she was given Narcan 2 mg IV in the ER with no response. ABG post intubation showed a pH of 7.35, CO2 23, pAO2 of 452, bicarb 12, saturation of 99%. On arrival she was hypertensive with a systolic blood pressure of 170/200 and a chest x-ray post intubation showed left lung base consolidation. She was given cefepime and vancomycin in the ER. Her laboratory data significant for leukocytosis with a WBC of 15.1, hyperkalemia, potassium level of 2.6 and a bicarb of 14.8 on the BMP. Her lactic acid level measured at 1.7. 12/01 Patient is sedated with Versed and intubated. Afebrile. 12/02 No acute events overnight. Sedated with Diprivan and intubated. Tolerated CPAP for several hrs yesterday . Objective Vital Signs Date Time Temp Pulse Resp B/P Pulse Ox O2 Delivery O2 Flow Rate FiO2 12/02/16 06:00 125 12/02/16 04:10 100 35 12/02/16 04:00 99.5 23 135/62 12/01/16 01:30 Ventilator 11/30/16 14:40 2 Intake and Output 12/01/16 12/01/16 12/02/16 08:00 16:00 00:00 Intake Total 1088 ml 2060 ml 704 ml Output Total 400 ml 250 ml 225 ml Balance 688 ml 1810 ml 479 ml Result Diagram: 12/02/16 0420 12/02/16 0420 Other Results Laboratory Tests Test 12/01/16 12/01/16 12/02/16 14:05 20:05 04:20 Sodium Level 139 MEQ/L 142 MEQ/L Potassium Level 2.7 MEQ/L 3.6 MEQ/L 3.7 MEQ/L Chloride Level 107 MEQ/L 111 MEQ/L Carbon Dioxide Level 19.4 MEQ/L 21.0 MEQ/L Anion Gap 13 MEQ/L 10 MEQ/L Blood Urea Nitrogen 12 MG/DL 11 MG/DL Creatinine 0.70 MG/DL 0.73 MG/DL Estimat Glomerular Filtration 81 ML/MIN 77 ML/MIN Rate Random Glucose 124 MG/DL 112 MG/DL Calcium Level 6.3 MG/DL 7.1 MG/DL Protein Corrected Calcium 7.9 MG/DL 8.8 MG/DL Total Protein 4.0 GM/DL 4.1 GM/DL White Blood Count 16.9 TH/MM3 Red Blood Count 2.81 MIL/MM3 Hemoglobin 8.3 GM/DL Hematocrit 24.6 % Mean Corpuscular Volume 87.6 FL Mean Corpuscular Hemoglobin 29.4 PG Mean Corpuscular Hemoglobin 33.5 % Concent Red Cell Distribution Width 16.5 % Platelet Count 439 TH/MM3 Mean Platelet Volume 8.2 FL Neutrophils (%) (Auto) 81.6 % Lymphocytes (%) (Auto) 9.8 % Monocytes (%) (Auto) 6.2 % Eosinophils (%) (Auto) 1.9 % Basophils (%) (Auto) 0.5 % Neutrophils # (Auto) 13.8 TH/MM3 Lymphocytes # (Auto) 1.6 TH/MM3 Monocytes # (Auto) 1.0 TH/MM3 Eosinophils # (Auto) 0.3 TH/MM3 Basophils # (Auto) 0.1 TH/MM3 CBC Comment DIFF FINAL Differential Comment Phosphorus Level 1.6 MG/DL Magnesium Level 1.6 MG/DL Random Vancomycin Level 21.8 COMMENT Imaging Last Impressions Chest X-Ray 12/01/16 0000 Signed Impressions: Service Date/Time: Thursday, December 01, 2016 07:48 - CONCLUSION: Tip of endotracheal tube remains at the orifice of the right mainstem bronchus. Otherwise stable chest. No evidence of acute air space disease or congestion. Khadar Amaro MD Head CT 11/30/16 1433 Signed Impressions: Service Date/Time: Wednesday, November 30, 2016 22:33 - CONCLUSION: Normal examination. Diffuse atrophy. Vu Brooks MD Objective Remarks GENERAL: Patient is 76 yo intubated and sedated SKIN: Warm and dry. HEAD: Normocephalic. EYES: No scleral icterus. No injection or drainage. NECK: Supple, trachea midline. No JVD or lymphadenopathy. CARDIOVASCULAR: Tachycardic without murmurs, gallops, or rubs. RESPIRATORY: Breath sounds equal bilaterally. No accessory muscle use. GASTROINTESTINAL: Abdomen soft, non-tender, nondistended. MUSCULOSKELETAL: No cyanosis, or edema. Neuro: Sedated A/P Assessment and Plan 1. VDRF 2. Altered mental status. 3. Left lung base consolidation. 4. Leukocytosis. 5. Anemia. 6. Hypokalemia. 7. Hypertension. 8. GERD. Plan Neuro: On Diprivan drip for sedation. Daily sedation vacation. Monitor neuro status closely CT brain on arrival: No acute process. UDS + Opiates and Benzos Psych consult once extubated. Pulm: Continue with vent support and maintain sats above 92%. Bronchodilators, ICU vent bundle. SBT daily as nanda CV: Monitor HR and BP and maintain MAP >65 mmHg. Lactic acid level measured at 1.7. Place on Lopressor 25mg BID. : Monitor renal function Is and Os and electrolyte replacement per protocol. WIll need phos replacement today d/c IVF GI: Start tube feeds- Glucerna 1.5 with goal rate 45ml/hr, on Protonix 40 mg IV daily for GI prophylaxis. ID: Continue with abx( vancomycin,Zosyn, Zithromax). Monitor for signs of infections(fever and WBC). strep pneumonia, Legionella urinary antigen negative, Urine cx: GNR. BC:NGTD Endo:SSI with Accu-Cheks q.6h for glycemic control. Heme: Monitor CBC. GI prophylaxis with Protonix 40 mg IV daily and DVT prophylaxis with SCDs/ Heparin SQ Addendum: Patient s/p extubation on 2L oxygen with good sats. Start PO diet per speech. Will sign off and transfer care to [facility] Level 3 Ken [place] MD Dec 02, 2016 07:38
[2016-12-02] MEDS: PANTOPRAZOLE SODIUM 40 MG VIAL IV SCH (09:21)
[2016-12-02] MEDS: AZITHROMYCIN INJ 500 MG in SODIUM CHLOR 0.9% 250 ML INJ 250 ML IV SCH (09:22)
[2016-12-02] MEDS: METOPROLOL TARTRATE 25 MG TAB PO SCH ×2 (09:25→20:45)
[2016-12-02 10:04] LABS: BLOOD GAS BASE EXCESS -6.4 mmol/L (-2-2); BLOOD GAS CARBOXYHEMOGLOBIN 1.5 % (0-4); BLOOD GAS HCO3 17 mmol/L (22-26); BLOOD GAS METHEMOGLOBIN 1.3 % (0-2); BLOOD GAS O2 HGB SATURATION 97 % (90-100); BLOOD GAS OXYGEN CONTENT 11.3 Vol % (12.0-20.0); BLOOD GAS PCO2 23 mmHg (38-42); BLOOD GAS PO2 181 mmHg (61-120); OXYGEN DEVICE VENTILATOR; TEMP CORR TO 98.6
[2016-12-02 10:05] LABS: VENT SETTINGS IPAP5/EPAP
[2016-12-02 10:06] LABS: DRAW SITE LT RADIAL; FIO2 35 %; NUMBER OF ARTERIAL PUNCTURES 1; STAT NO; ULNAR PULSE PRESENT
--- NOTE | 2016-12-02 16:15 | MB ---
cc: TACHO MCCARTHY M.D. DATE OF CONSULTATION: 12/02/2016 HISTORY OF PRESENT ILLNESS This 76-year-old white female was brought to the hospital due to "unconsciousness". She reportedly overdosed on Lortab and "sleeping pills". Psychiatric consultation is requested by Dr. Millan for evaluation and assistance in the management of the same. In reviewing the available records it was learned that her family found her progressively less responsive throughout the day. She has been on pain medications and benzodiazepines. In the emergency room she was completely obtunded. She was intubated and was placed on the ventilator. I am told by the staff this morning she was extubated and is able to communicate verbally. SIGNIFICANT LAB REPORTS Significant lab reports are as follows: CBC with differential shows WBC count of 16.9 today, yesterday it was 19.6. Her potassium upon admission was low at 2.5, repeated today it is normalized to 3.7. Serum calcium on admission was also low at 6.8, repeated today 7.1. Urine drug screen positive for opiates and benzodiazepines. Salicylate level is less than 1.7. Blood alcohol level less than 3. INR 1.0, APTT 21.9. Urinalysis WBC 3, RBC 6, cath culture indicated. Nasal MRSA negative. CT scan of the head negative for any acute process. Chest x-ray 11/30 shows slight focal consolidation in the left lung base posteriorly. Amorphous calcification involving the left rotator cuff. MEDICATIONS Current medications are as follows: 1. Vancomycin. 2. Lopressor. 3. Azithromycin. 4. Potassium. Prior to the evaluation the case was discussed with the nursing staff on the unit who indicated that since admission she has been calm and cooperative. She has not exhibited any aggressive or self-destructive behavior, nor has she made any threats of harm to self or others. However, her daughter gave a different account, i.e., patient is making statement indicative of intent to kill herself. At the time of this evaluation Ms. Shafer was verbal and quite cooperative. Her responses to questions were relevant and logical. Because of her hearing impairment questions had to be repeated to her. When asked about her understanding of the reason for this hospitalization she responded "about a year ago I fell down and hurt my pelvis and my tailbone. Since then I have not been able to walk without a walker. I cannot drive. I have been hurting. I have been more or less confined to my home. I cannot take it anymore and took a bunch of Lortab and my sleeping pill. I do not know what happened after that. I guess my grandson who lives with me called the ambulance". She acknowledged when she overdosed she had intention to kill herself. However, when asked as to how she felt at this time she responded "it was stupid, I should not have done this". She denied any previous suicide attempts. Ms. Shafer acknowledged feeling "sad and depressed" for the past 4 months. She mentioned occasionally she would cry. She stated her appetite had declined and she had lost about 7 pounds in the past 2 months. In addition, she also indicated that she has been having difficulty falling asleep and would wake up in the middle of night. She denied experiencing any nightmares. She mentioned that she lost interest in activities she had enjoyed previously "I used to love line dancing but I cannot do it anymore. I do not even feel like" She mentioned her memory and concentration also had declined to some extent. On further direct questioning she did not give any history suggestive of bipolar affective disorder. She denied any alcohol or drug abuse. Further exploration did not reveal any other significant psychosocial stressor. PAST PSYCHIATRIC HISTORY She denied any previous psychiatric intervention. Specifically she denied ever being on any antidepressants. She mentioned that she has been taking Xanax 0.25 mg twice a day as needed. In addition she had also been on Restoril 50 mg q.h.s. p.r.n. prescribed to her by her primary care physician Dr. Daniel Soto. PAST MEDICAL HISTORY 1. History of hypertension. 2. Anemia. 3. Gastroesophageal reflux disease. 4. Osteopenia. 5. Osteoarthritis. 6. Vitamin D deficiency. 7. As mentioned, she also has a fractured pelvis about a year ago. SURGERIES 1. She had arthroscopic surgery left knee. 2. Left breast lumpectomy. 3. Right total knee replacement. 4. Cholecystectomy. 5. Right rotator cuff repair. 6. L4-L5 laminectomy. FAMILY HISTORY Her parents are . She has one brother and one sister. She denied any family history of psychiatric illness or substance abuse. 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 She was twice and has one son and three daughters. As mentioned her 37-year-old grandson lives with her. She stated she has good relationship with him. She denied any alcohol or drug abuse. CLINICAL OBSERVATION AND MENTAL STATUS EXAMINATION At the time of this evaluation Ms. Shafer presented as a reasonably well-groomed white female who looked her stated age. She looked somewhat depressed. Because of her hearing impairment questions had to be repeated to her. Her responses to questions were relevant and logical. No overt anger or hostility was noticed. No bizarre behavior or mannerisms were noticed. Her speech was coherent and appropriate. Her affect was appropriate, somewhat blunted. Subjectively, she described her mood as "I've been feeling depressed". Thought processes did not reveal any looseness of association or flight of ideas. No suzi delusions, auditory or visual hallucinations were noticed or reported. She denied active suicidal or homicidal ideations or intent at this time. As mentioned she expressed remorse at her recent suicidal behavior "it was stupid, I should not have done it". She denied any previous suicide attempts. Cognitive functions: She was alert, oriented to time, place, person and situation. She gave the date as "December 02, 2016". Memory: Immediate, she could do 5 digits forward, 3 digits backward. Recent, she could recall 2/3 objects after 10 minutes. Remote, she could recall presidents up to President Obama only. Her attention and concentration was impaired. She could do serial 7s up to 86. Her judgment and insight was felt to be fair. DIAGNOSTIC IMPRESSION [place] I: Major depressive disorder, moderate, single episode. Status post overdose on Lortab and Restoril. [place] II: No diagnosis. [place] III: Hypertension, anemia, gastroesophageal reflux disease, osteoarthritis, osteopenia, status post fractured pelvis, status post left breast lumpectomy, status post left knee surgery, status post right knee replacement, cholecystectomy, right rotator cuff repair, status post L4 and L5 decompressive laminectomy. [place] IV: Severity of psychosocial stressors, moderate, i.e., multiple medical issues, restrictive lifestyle. [place] V: Current GAF score 40. FORMULATION AND RECOMMENDATIONS Based on this evaluation and the background information available to me at this time, Ms. Shafer is experiencing moderate degree of depression as manifested by persistent feeling of sadness, crying episodes, neurovegetative symptoms. Her depression is compounded by multiple medical issues resulting in restrictive lifestyle. In addition she has been experiencing chronic back pain and pain in other parts of her body. These are ongoing stressors which seem to have overwhelmed her and led to her suicide attempt. Currently she is quite remorseful and is denying any suicidal or homicidal ideations or intent. However, considering her depression and inability to cope with the current psychosocial stressor, brief psychiatric hospitalization would be of help. I discussed this with her and she seemed somewhat ambivalent. To alleviate her depression we need to start her on antidepressant. Considering that she suffers from chronic pain, Cymbalta would be a better choice. In addition, upon discharge she needs to continue with outpatient psychiatric followup and this can be arranged through [facility]. For the sake of completeness we need to check her thyroid, vitamin B12 and vitamin D levels and I have taken the liberty of ordering these. Thank you for allowing me to participate in the care of Ms. Shafer. I will follow her with you during this admission. MD MARCELLUS Valdez/SVETLANA /2:45 PM /3:11 PM
[2016-12-02 16:49] LABS: FREE T4 1.12 NG/DL (0.76-1.46)
[2016-12-02] MEDS ORDERED: VANCOMYCIN 1,000 MG/NS 250 ML IV SCH ×2 (17:00)
[2016-12-03] VITALS (14 sets, daily range): BP systolic 132–153; BP diastolic 65–85; PULSE 82–116; RESP 14–23; TEMP 97.7–98.8; O2SAT 92–100
[2016-12-03] MEDS: HEPARIN SODIUM - SQ 10,000 UNITS/ML VIAL SQ SCH ×2 (02:29→16:39)
[2016-12-03] MEDS: RESP: ALBUTEROL 2.5 MG/IPRATROPIUM 0.5 MG NEB (SCH) INH ×4 (03:02→20:02)
[2016-12-03] MEDS: INSULIN NovoLIN REGULAR SUPPLEMENTAL SCALE SQ SCH (05:07)
[2016-12-03] MEDS: PIPERACIL-TAZO 3.375 GM PREMIX 50 ML IV SCH (05:11)
[2016-12-03 06:25] LABS: AUTOMATED NEUTROPHIL # 11.3 TH/MM3 (1.8-7.7); BASOPHIL # 0.1 TH/MM3 (0-0.2); BASOPHIL % 0.5 % (0.0-2.0); EOSINOPHIL # 0.5 TH/MM3 (0-0.4); EOSINOPHIL % 3.3 % (0.0-4.0); HEMATOCRIT 25.6 % (35.0-46.0); HEMO FLAGS DIFF FINAL; LYMPHOCYTE # 1.3 TH/MM3 (1.0-4.8); MEAN CELL VOLUME 86.8 FL (80.0-100.0); MEAN CORPUSCULAR HEMOGLOBIN 29.5 PG (27.0-34.0); MEAN CORPUSCULAR HGB CONC 33.9 % (32.0-36.0); NEUT % 80.2 % (16.0-70.0); PLATELET COUNT 465 TH/MM3 (150-450); RED BLOOD COUNT 2.95 MIL/MM3 (4.00-5.30); RED CELL DISTRIBUTION WIDTH 16.2 % (11.6-17.2)
[2016-12-03 06:29] LABS: BICARBONATE 22.5 MEQ/L (21.0-32.0); MAGNESIUM 2.1 MG/DL (1.5-2.5)
[2016-12-03 06:37] LABS: POTASSIUM 2.6 MEQ/L (3.5-5.1)
[2016-12-03] MEDS: POTASSIUM CHLOR 20 MEQ PREMIX 100 ML IV PRN ×2 (06:42→08:24)
[2016-12-03] MEDS: METOPROLOL TARTRATE 25 MG TAB PO SCH ×2 (08:23→20:35)
[2016-12-03] MEDS: PANTOPRAZOLE SODIUM 40 MG VIAL IV SCH (08:24)
[2016-12-03] MEDS: AZITHROMYCIN INJ 500 MG in SODIUM CHLOR 0.9% 250 ML INJ 250 ML IV SCH (08:24)
[2016-12-03] MEDS ORDERED: POTASSIUM CHLORIDE 20 MEQ CONTROLLED RELEASE TAB PO ONE (16:45)
[2016-12-03] MEDS: ACETAMINOPHEN 325 MG TAB PO PRN (18:13)
--- NOTE | 2016-12-03 19:42 | HHI.PR ---
Subjective Remarks doing ok, denies SI now. Objective Vitals heart reg lung cta abd s/nt ext no edema ann Vital Signs Date Time Temp Pulse Resp B/P Pulse Ox O2 Delivery O2 Flow Rate FiO2 12/03/16 18:00 99 12/03/16 16:00 98.0 88 19 153/70 100 12/03/16 16:00 88 12/03/16 14:00 110 12/03/16 12:00 82 12/03/16 12:00 98.1 82 16 140/65 100 12/03/16 10:00 116 12/03/16 09:12 92 Nasal Cannula 4.00 12/03/16 08:00 97.7 102 18 135/66 100 12/03/16 08:00 102 12/03/16 06:00 106 12/03/16 04:00 97 12/03/16 04:00 98.6 97 14 132/65 99 12/03/16 02:00 92 12/03/16 00:00 100 12/03/16 00:00 98.1 100 14 149/66 96 12/02/16 22:00 99 12/02/16 20:46 99 Nasal Cannula 3.00 12/02/16 20:00 98.1 101 22 151/72 97 12/02/16 20:00 101 12/02/16 12/02/16 12/03/16 15:00 23:00 07:00 Intake Total 1300 ml 572 ml 110 ml Output Total 500 ml 400 ml 750 ml Balance 800 ml 172 ml -640 ml Intake Oral 300 ml 450 ml IV Total 1000 ml 122 ml 110 ml Output Urine Total 500 ml 400 ml 750 ml # Bowel Movements 0 1 1 Result Diagram: 12/03/16 0450 12/03/16 1504 A/P Problem List: (1) OD (overdose of drug) Status: Acute Plan: Pt s/p VDRF from OD on benzo/narcotic pain med Pt has depression. Says she wanted to "sleep"...admits to depression from decline in health and indepedence.. hypokalemia. general weakness. anemia. stable. no active bleeding noted. no evidence currently for infection. stop abx and observe replace kcl stop ivf d/c ann in AM transfer to med/surg Psych following dvt prophylaxis Stevenson Cervantes MD Dec 03, 2016 19:42
[2016-12-03] MEDS: POTASSIUM CHLORIDE 20 MEQ CONTROLLED RELEASE TAB PO SCH (20:35)
[2016-12-04] VITALS (9 sets, daily range): BP systolic 121–185; BP diastolic 69–91; PULSE 73–112; RESP 18; TEMP 96–98.6; O2SAT 94–99
[2016-12-04] MEDS: RESP: ALBUTEROL 2.5 MG/IPRATROPIUM 0.5 MG NEB (SCH) INH ×3 (02:58→15:12)
[2016-12-04] MEDS: HEPARIN SODIUM - SQ 10,000 UNITS/ML VIAL SQ SCH ×2 (03:59→16:10)
[2016-12-04] MEDS: CHLORHEXIDINE GLUCONATE 2 % 1 PACK (2 CLOTHS) TOP SCH (04:00)
[2016-12-04] MEDS: ACETAMINOPHEN 325 MG TAB PO PRN (04:11)
[2016-12-04] MEDS: POTASSIUM CHLORIDE 20 MEQ CONTROLLED RELEASE TAB PO SCH ×2 (09:23→21:50)
[2016-12-04] MEDS: METOPROLOL TARTRATE 25 MG TAB PO SCH ×2 (09:24→21:50)
[2016-12-04] MEDS: PANTOPRAZOLE SOD 40 MG DELAYED RELEASE TAB PO SCH (09:24)
[2016-12-04 09:40] LABS: BICARBONATE 21.2 MEQ/L (21.0-32.0); POTASSIUM 3.9 MEQ/L (3.5-5.1)
--- NOTE | 2016-12-04 10:43 | HHI.PR ---
Subjective Remarks doing ok. generally weak. Objective Vitals heart reg lung cta abd s/nt ext no edema Vital Signs Date Time Temp Pulse Resp B/P Pulse Ox O2 Delivery O2 Flow Rate FiO2 12/04/16 10:22 94 Nasal Cannula 2.00 12/04/16 08:00 96.0 95 18 165/87 99 12/04/16 05:24 18 12/04/16 04:07 97.8 88 18 132/69 98 12/04/16 00:21 98.3 112 18 143/75 97 12/03/16 23:00 99 12/03/16 20:01 98 Nasal Cannula 4.00 12/03/16 20:00 98 12/03/16 20:00 98.8 98 23 144/85 97 12/03/16 18:00 99 12/03/16 16:00 98.0 88 19 153/70 100 12/03/16 16:00 88 12/03/16 14:00 110 12/03/16 12:00 82 12/03/16 12:00 98.1 82 16 140/65 100 12/03/16 12/03/16 12/04/16 15:00 23:00 07:00 Intake Total 1105 ml 400 ml Output Total 1150 ml 500 ml 150 ml Balance -45 ml -100 ml -150 ml Intake Oral 480 ml 400 ml IV Total 625 ml Output Urine Total 1150 ml 500 ml 150 ml # Bowel Movements 4 0 Result Diagram: 12/03/16 0450 12/04/16 0840 A/P Problem List: (1) OD (overdose of drug) Status: Acute Plan: Pt s/p VDRF from OD on benzo/narcotic pain med Pt has depression. Says she wanted to "sleep"...admits to depression from decline in health and indepedence.. hypokalemia. general weakness. anemia. stable. no active bleeding noted. no evidence currently for infection. stopped abx and observe replace kcl stopped d/c ann Psych following dvt prophylaxis CM working on snf.....[id number] complete ..d/c when bed available. cont PT. Stevenson Cervantes MD Dec 04, 2016 10:43
[2016-12-04] MEDS ORDERED: ALUMINUM/MAGNESIUM/SIMETH 30 ML CUP PO PRN (16:00)
[2016-12-04] MEDS: DULoxetine HCl DR 20 MG CAP PO SCH (17:56)
[2016-12-05 00:55] VITALS: BP 177/79; PULSE 102; RESP 17; TEMP 98.8; O2SAT 98
[2016-12-05] MEDS: CHLORHEXIDINE GLUCONATE 2 % 1 PACK (2 CLOTHS) TOP SCH (04:00)
[2016-12-05 04:53] VITALS: BP 182/80; PULSE 97; RESP 18; TEMP 97.7; O2SAT 96
[2016-12-05] MEDS: HEPARIN SODIUM - SQ 10,000 UNITS/ML VIAL SQ SCH ×2 (04:54→15:44)
[2016-12-05 08:00] VITALS: BP 189/85; PULSE 93; PULSE 98; RESP 18; TEMP 96.9; O2SAT 94
[2016-12-05] MEDS ORDERED: cloNIDine HCL 0.1 MG TAB PO PRN (08:00)
[2016-12-05] MEDS: PANTOPRAZOLE SOD 40 MG DELAYED RELEASE TAB PO SCH (08:50)
[2016-12-05] MEDS: METOPROLOL TARTRATE 25 MG TAB PO SCH (08:50)
[2016-12-05] MEDS: POTASSIUM CHLORIDE 20 MEQ CONTROLLED RELEASE TAB PO SCH (08:50)
[2016-12-05] MEDS: DULoxetine HCl DR 20 MG CAP PO SCH (08:50)
[2016-12-05] MEDS ORDERED: LISINOPRIL 20 MG TAB PO SCH ×2 (09:00→21:00)
--- NOTE | 2016-12-05 11:15 | HHI.PR ---
Subjective Remarks doing ok. no complaints Objective Vitals heart reg lung cta abd s/nt ext no edema Vital Signs Date Time Temp Pulse Resp B/P Pulse Ox O2 Delivery O2 Flow Rate FiO2 12/05/16 08:00 98 12/05/16 08:00 96.9 93 18 189/85 94 12/05/16 04:53 97.7 97 18 182/80 96 12/05/16 00:55 98.8 102 17 177/79 98 12/04/16 21:00 98.6 107 18 185/91 97 12/04/16 16:00 97.4 100 18 156/87 99 12/04/16 15:12 98 21 12/04/16 13:15 96 12/04/16 12:00 96.4 73 18 121/75 98 12/04/16 12/04/16 12/05/16 15:00 23:00 07:00 Intake Total 240 ml 240 ml Output Total 350 ml Balance -110 ml 240 ml Intake Oral 240 ml 240 ml Output Urine Total 350 ml # Voids 1 7 # Bowel Movements 2 1 2 Result Diagram: 12/03/16 0450 12/04/16 0840 A/P Problem List: (1) OD (overdose of drug) Status: Acute Plan: Pt s/p VDRF from OD on benzo/narcotic pain med Pt has depression. Says she wanted to "sleep"...admits to depression from decline in health and indepedence.. hypokalemia. general weakness. anemia. stable. no active bleeding noted. no evidence currently for infection. stopped abx and observe replaced kcl pt very weak. discussed with Dr Salomon..He thinks she needs inpt psych unit. hold dc to snf...transfer down to psych unit later today if bp stable. resume jim and cont bb. Stevenson Cervantes MD Dec 05, 2016 11:14
[2016-12-05 12:00] VITALS: BP 164/78; PULSE 84; RESP 16; TEMP 96.1; O2SAT 94
[2016-12-05 16:00] VITALS: BP 154/78; PULSE 82; RESP 16; TEMP 96.9; O2SAT 93
[2016-12-05] MEDS ORDERED: LISI-515 PO (16:51)
[2016-12-05] MEDS ORDERED: DULO20 PO (16:51)
--- NOTE | 2016-12-05 16:52 | HHI.DCPOC ---
Discharge Care Plan Diagnosis: (1) Suicidal ideation (2) Situational depression (3) OD (overdose of drug) (4) Hypertension, benign Goals to Promote Your Health * To prevent worsening of your condition and complications * To maintain your health at the optimal level Directions to Meet Your Goals Take your medications as prescribed Follow your dietary instruction Follow activity as directed Keep your appointments as scheduled Take your immunizations and boosters as scheduled If your symptoms worsen call your PCP, if no PCP go to Urgent Care Center or Emergency Room Smoking is Dangerous to Your Health. Avoid second hand smoke Call the 24-hour hour crisis hotline for domestic abuse at Stevenson Cervantes MD Dec 05, 2016 16:52
[2016-12-07 10:18] LABS: CRITICAL VALUE YES
--- NOTE | 2017-01-04 11:24 | HHI.DS ---
Discharge Summary Admission Date Nov 30, 2016 at 17:42 Discharge Date: Dec 05, 2016 Admitting Diagnosis altered mental status, coma (1) OD (overdose of drug) Hospital Course Pt s/p VDRF from OD on benzo/narcotic pain med Pt has depression. Says she wanted to "sleep"...admits to depression from decline in health and indepedence.. Pt has significant general weakness. anemia. stable. no active bleeding noted. no evidence currently for infection. stopped abx and observe replaced kcl pt very weak. discussed with Dr Salomon..He thinks she needs inpt psych unit. hold dc to snf...transfer down to psych unit later today if bp stable. resume jim and cont bb. Pt Condition on Discharge: Stable Discharge Disposition: Disc to Psych Care Fac Discharge Instructions DIET: Follow Instructions for: Soft Diet Speech Therapy-Diet Recommends: Pureed Activities you can perform: Regular-No Restrictions New Medications: Lisinopril (Lisinopril) 20 Mg Tab 20 MG PO BID htn #0 TAB Continued Medications: B-Complex W/ Folic Acid (B Complex Plus) 1 Tab 1 TAB PO TAB Ferrous Fumarate (Iron) 18 Mg Tab 18 MG PO BID Nutritional Supplement Ref 0 TAB Metoprolol Tartrate (Metoprolol Tartrate) 25 Mg Tab 25 MG PO BID #60 Ref 0 TAB Multiple Vitamin (Multi Vitamin) 1 Tab Tab 1 TAB PO DAILY TAB Discontinued Medications: Alprazolam (Alprazolam) 0.25 Mg Tab 0.25 MG PO Q4H PRN ANXIETY Ref 0 TAB Cyclobenzaprine (Flexeril) 10 Mg Tab 10 MG PO TID Muscle Spasm #90 Ref 0 TAB Docusate Sodium (Stool Softener) 100 Mg Cap Hydrocodone-Acetaminophen (Hydrocodone-Acetaminophen) 5-325 mg Tab 1 TAB PO Q4H PRN PAIN Ref 0 TAB Loratadine (Allergy) 10 Mg Tab 10 Losartan (Losartan) 50 Mg Tab 50 MG PO DAILY Blood Pressure Management #30 Ref 0 TAB Megestrol (Megestrol) 40 Mg Tab 40 MG PO QID Ref 0 TAB Oyster Shell (Calcium) 500 Mg Tab Prochlorperazine Maleate (Prochlorperazine Maleate) 10 Mg Tab 10 MG PO Q4H PRN NAUSEA OR VOMITING Ref 0 TAB Sodium Bicarbonate (Sodium Bicarbonate) 650 Mg Tab 650 MG PO BIDPC #60 Ref 0 TAB Temazepam (Temazepam) 15 Mg Cap 15 MG PO HS PRN INSOMNIA #30 Ref 0 CAP Zinc Gluconate (Zinc) 50 Mg Tab Stevenson Cervantes MD January 04, 2017 11:24
== END 2016-12-05 17:50 | DRG 917 ==
LOC: NEPC 13:04 → NEDA 17:42 → HIMW 12-01 01:20 → N05A 12-03 23:41
PROVIDERS: ADMIT Hospitalist; ATTEND Hospitalist
PROC: 0BH17EZ Insertion of Endotracheal Airway into Trachea, Via Natural or Artificial Opening (ICD-10-PCS; principal; 2016-11-30)
PROC: 5A1945Z Respiratory Ventilation, 24-96 Consecutive Hours (ICD-10-PCS; 2016-11-30)
DX: T45.0X1A Poisoning by antiallergic and antiemetic drugs, accidental (unintentional), initial encounter (principal); J96.90 Respiratory failure, unspecified, unspecified whether with hypoxia or hypercapnia; E87.2 Acidosis; F32.1 Major depressive disorder, single episode, moderate; T40.2X1A Poisoning by other opioids, accidental (unintentional), initial encounter; Y92.9 Unspecified place or not applicable; D64.9 Anemia, unspecified; E55.9 Vitamin D deficiency, unspecified; I10 Essential (primary) hypertension; K21.9 Gastro-esophageal reflux disease without esophagitis; E87.6 Hypokalemia; M85.80 Other specified disorders of bone density and structure, unspecified site; M19.90 Unspecified osteoarthritis, unspecified site; Z87.891 Personal history of nicotine dependence
CPT/HCPCS: 31500; 36600; 51702; 70450; 71010; 80048; 80053; 80202; 80307; 81001; 82306; 82607; 82652; 82805; 82948; 83605; 83735; 84100; 84132; 84155; 84439; 84443; 84484; 85025; 85610; 85730; 87040; 87077; 87086; 87186; 87205; 87449; 87641; 93005; 94002; 94003; 94640; 94664; 96361; 96365; 96374; C9113; J0330; J0456; J0610; J0692; J1644; J2250; J2310; J2543; J3370; J3475; J3480; J7030; J7040; J7042; J7050; J7070

== ENCOUNTER 2016-12-05 16:40 | Inpatient (IN) | payer MEDICARE ==
[~2016-12-05 16:40] MED LIST changes: -ALPR-138 PO; +ALPR0.25 PO; -ASPI1TAB7 PO; +ASPI81CH CHEW; -AZIT250T43 PO; +B COTAB PO; +CALC500T35; -CALCTAB98 PO; +CHEL50TA; -CLAR10TA7 PO; -CYCL-36 PO; +CYCL1TAB29 PO; -FERR325T PO; +HYDR-3516 PO; +IRON18TA2 PO; -LEXA10TA PO; +LORA-520; -LORTA5 PO; -METO25 PO; +METO25TA3 PO; +MULT-135 PO; +OMEP20TA PO; -ONDAN4 PO; -PRIL20CA PO; +PROC10TA PO; -PROC10TA4 PO; +STOO100C; -STOO100T PO; -TAB-TAB PO; -TEMA15 PO; +TEMA15CA PO; -ULTR50TA PO
[2016-12-05] MEDS ORDERED: LISI-515 PO (16:51)
[2016-12-05] MEDS ORDERED: DULO20 PO (16:51)
[2016-12-05] MEDS ORDERED: MAGNESIUM HYDROXIDE SUSP 30 ML CUP PO PRN (19:00)
[2016-12-05] MEDS ORDERED: ACETAMINOPHEN 325 MG TAB PO PRN (19:00)
[2016-12-05] MEDS ORDERED: ALUMINUM/MAGNESIUM/SIMETH 30 ML CUP PO PRN (19:00)
[2016-12-05 20:43] VITALS: BP 179/89; PULSE 100; RESP 16; TEMP 99; O2SAT 93
[2016-12-05] MEDS: METOPROLOL TARTRATE 25 MG TAB PO SCH (21:10)
[2016-12-05] MEDS: LISINOPRIL 20 MG TAB PO SCH (21:10)
[2016-12-06 06:31] VITALS: BP 185/92
[2016-12-06] MEDS: LISINOPRIL 20 MG TAB PO SCH ×2 (06:33→21:51)
[2016-12-06 06:36] VITALS: BP 185/84; PULSE 91; RESP 20; TEMP 97.4; O2SAT 94
[2016-12-06] MEDS ORDERED: cloNIDine HCL 0.1 MG TAB PO PRN (07:45)
[2016-12-06 09:21] VITALS: BP 166/94
[2016-12-06] MEDS: PANTOPRAZOLE SOD 40 MG DELAYED RELEASE TAB PO SCH (09:45)
[2016-12-06] MEDS: DULoxetine HCl DR 20 MG CAP PO SCH (09:45)
[2016-12-06] MEDS: METOPROLOL TARTRATE 25 MG TAB PO SCH ×2 (09:45→21:51)
[2016-12-06 11:47] VITALS: BP 182/91; PULSE 80
[2016-12-06 13:28] VITALS: BP 163/67; PULSE 86
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
--- NOTE | 2016-12-06 19:36 | MH ---
cc: SHARIT[place]O DATE OF ADMISSION: 12/05/2016 HISTORY OF PRESENT ILLNESS: This 76-year-old white female was initially admitted to [facility] [place] after A suicide attempt by overdose on Lortab and "sleeping pills". She was seen by me in consultation per request of Dr. Hill and I continued to follow her upon transfer to the regular floor. She seemed to have been experiencing significant depression for quite some time but had not received any treatment. She was started on Cymbalta and once medically stabilized she was transferred to the psychiatric unit under my service. Please refer to my consultation note for details. Prior to the transfer, I reviewed the case with Dr. Cervantes, her attending physician. While on the medical floor, she was not ambulatory and was followed by the physical therapist as well. Prior to evaluation, the case was discussed with the nursing staff on the unit who indicated that since admission she has been seclusive but well-oriented and cooperative. She has not exhibited any aggressive or self-destructive behavior nor has she made any threats of harm to self or others. At the time of this evaluation, Ms. Shafer was pleasant and cooperative though still somewhat depressed-looking. When asked about her understanding of the reason for this hospitalization she responded, "You know I overdosed. I've been thinking about it. I'm feeling kind of stupid". She stated that she has not been sleeping well and her appetite has remained poor. She acknowledged feeling "sad and depressed". However, at the same time she requested discharge home but when explained the need for continued hospital stay she accepted it. PAST PSYCHIATRIC HISTORY, PAST MEDICAL HISTORY, FAMILY HISTORY AND PERSONAL HISTORY: Please refer to my consultation report for details. Dr. Cervantes, her attending on the medical floor, did not feel there is any need for further medical intervention at this point. CLINICAL OBSERVATION AND MENTAL STATUS EXAMINATION: At the time of this evaluation, Ms. Shafer presented as a casually dressed, reasonably well-groomed white female who looked her stated age. She was pleasant, polite and cooperative with this interviewer and volunteered information spontaneously. Her affect was depressed, constricted. Subjectively she described her mood as "I've been feeling depressed." Thought processes did not reveal any looseness of association or flight of ideas. No suzi delusions, auditory or visual hallucinations were noticed or reported. She denied active suicidal or homicidal ideations or intent at this time. As mentioned, she expressed remorse at her recent suicidal behavior. She denied any previous suicide attempts. Her cognitive function unchanged. Her judgment and insight was felt to be fair. REVIEW OF SYSTEMS AND PHYSICAL EXAMINATION: Not done at this has already been done on the medical floor. No acute medical issues identified at this time. DIAGNOSTIC IMPRESSION: AXIS I: Major depressive disorder moderate single episode. Status post overdose of Lortab and Restoril. AXIS II: No diagnosis. AXIS III: Hypertension. Anemia. Gastroesophageal reflux disease (GERD). Osteoarthritis. Osteopenia. Status post fractured pelvis. Status post left breast lumpectomy. Status post left knee surgery. Status post right knee replacement. Status post cholecystectomy. Status post right rotator cuff repair. Status post L4 and L5 decompressive laminectomy. AXIS IV: Severity of psychosocial stressors moderate i.e., multiple medical issues, restrictive lifestyle due to the medical issues. AXIS V: Current GAF score 40. FORMULATION AND RECOMMENDATIONS: Please refer to my consultation note. To alleviate her depression, she will be continued on the Cymbalta. The above-mentioned issues will be further explored and addressed in individual psychotherapy sessions. She will participate in various other unit activities i.e., occupational therapy, recreational therapy, group therapy. Public Transportation Inspector be asked to assist in discharge planning. She is unable to ambulate, however insists on returning home. She has an adult son who lives with her and who seems quite supportive. She would benefit from half-way care, but whether not she will be agreeable to it is doubtful. As such, oncology social work will contact the family to finalize her placement. Identified problems. 1. Depression. 2. Current psychosocial stressors. Her assets are: 1. She is verbal. 2. Motivated seek help. Her estimated length of stay is five to seven days. MD MARCELLUS Valdez/ANNE /7:06 PM /7:25 PM
[2016-12-06 21:32] VITALS: BP 162/83; PULSE 92; TEMP 97.2; O2SAT 93
[2016-12-07 06:08] VITALS: BP 148/70; PULSE 103; TEMP 97.8; O2SAT 96
[2016-12-07] MEDS: LISINOPRIL 20 MG TAB PO SCH ×2 (09:54→22:00)
[2016-12-07] MEDS: METOPROLOL TARTRATE 25 MG TAB PO SCH ×2 (09:54→22:00)
[2016-12-07] MEDS: DULoxetine HCl DR 20 MG CAP PO SCH (09:54)
[2016-12-07] MEDS: PANTOPRAZOLE SOD 40 MG DELAYED RELEASE TAB PO SCH (09:54)
[2016-12-07] MEDS: NIFEdipine 30 MG SUSTAINED RELEASE TAB PO SCH (09:54)
[2016-12-07] MEDS ORDERED: PILL SPLITTER OTHER PRN (14:15)
[2016-12-07 20:00] VITALS: BP 168/71; PULSE 94; RESP 15; O2SAT 94
[2016-12-07] MEDS ORDERED: ONDANSETRON ODT 4 MG TAB PO PRN (20:00)
[2016-12-07] MEDS: MIRTAZAPINE 15 MG TAB PO SCH (22:00)
[2016-12-08 06:05] VITALS: BP 119/54; PULSE 108; RESP 16; TEMP 99.4
[2016-12-08] MEDS: LISINOPRIL 20 MG TAB PO SCH ×2 (09:00→20:23)
[2016-12-08] MEDS: PANTOPRAZOLE SOD 40 MG DELAYED RELEASE TAB PO SCH (09:00)
[2016-12-08] MEDS: NIFEdipine 30 MG SUSTAINED RELEASE TAB PO SCH (09:00)
[2016-12-08] MEDS: DULoxetine HCl DR 20 MG CAP PO SCH (09:00)
[2016-12-08] MEDS: METOPROLOL TARTRATE 25 MG TAB PO SCH ×2 (09:00→20:24)
[2016-12-08 09:08] VITALS: BP 130/67; PULSE 97; RESP 16; TEMP 97.2
[2016-12-08 11:53] LABS: AUTOMATED NEUTROPHIL # 19.4 TH/MM3 (1.8-7.7); BASOPHIL # 0.1 TH/MM3 (0-0.2); BASOPHIL % 0.3 % (0.0-2.0); EOSINOPHIL % 0.2 % (0.0-4.0); HEMATOCRIT 26.8 % (35.0-46.0); HEMO FLAGS DIFF FINAL; LYMPH % 7.4 % (9.0-44.0); LYMPHOCYTE # 1.7 TH/MM3 (1.0-4.8); MEAN CELL VOLUME 87.9 FL (80.0-100.0); MEAN CORPUSCULAR HEMOGLOBIN 27.7 PG (27.0-34.0); MEAN CORPUSCULAR HGB CONC 31.6 % (32.0-36.0); MONO % 7.2 % (0.0-8.0); NEUT % 84.9 % (16.0-70.0); PLATELET COUNT 670 TH/MM3 (150-450); RED BLOOD COUNT 3.05 MIL/MM3 (4.00-5.30); RED CELL DISTRIBUTION WIDTH 15.3 % (11.6-17.2); WHITE BLOOD COUNT 22.9 TH/MM3 (4.0-11.0)
[2016-12-08 12:07] LABS: BICARBONATE 29.1 MEQ/L (21.0-32.0); MAGNESIUM 1.8 MG/DL (1.5-2.5); POTASSIUM 3.9 MEQ/L (3.5-5.1)
[2016-12-08 12:24] VITALS: BP 134/63; PULSE 95; RESP 28; TEMP 97.7; O2SAT 92
[2016-12-08] MEDS: NS + KCL 20 MEQ INJ 1,000 ML IV SCH ×2 (14:30→15:37)
--- NOTE | 2016-12-08 15:00 | RADRPT ---
EXAM DATE/TIME: 12/08/2016 13:56 [facility] COMPARISON: CHEST SINGLE AP, December 01, 2016, 7:48. INDICATIONS : Shortness of breath. MEDICAL HISTORY : None. SURGICAL HISTORY : None. ENCOUNTER: Subsequent ACUITY: 1 week PAIN SCORE: 0/10 LOCATION: Bilateral chest FINDINGS: A single view of the chest demonstrates the lungs to be symmetrically aerated with some linear fibrot ic changes in both apices. Faint airspace disease medially in the right base and in the left lingula suggesting some degree of atelectasis. There is some blunting of the right costophrenic angle possibl y representing a small effusion. Heart size is normal. There is some rightward deviation of the trach ea is probably secondary to the aortic arch. Osseous structures are intact with a mild levoscoliosis of the thoracolumbar spine. CONCLUSION: 1. Mild chronic changes with biapical scarring/fibrosis and bibasilar atelectatic changes. No conflue nt infiltrate. 2. Possible small right-sided effusion with some blunting of the costophrenic angle. 3. Heart size is normal. Louis Black MD on December 08, 2016 at 14:55 Board Certified Radiologist. This report was verified electronically.
[2016-12-08 20:00] VITALS: BP 149/76; PULSE 109; RESP 15; O2SAT 100
[2016-12-08] MEDS: MIRTAZAPINE 15 MG TAB PO SCH (20:24)
[2016-12-09] MEDS: NS + KCL 20 MEQ INJ 1,000 ML IV SCH ×4 (02:15→22:18)
[2016-12-09 05:34] VITALS: BP 156/64; PULSE 88; RESP 16; TEMP 97.4; O2SAT 99
[2016-12-09] MEDS: NIFEdipine 30 MG SUSTAINED RELEASE TAB PO SCH (07:59)
[2016-12-09] MEDS: PANTOPRAZOLE SOD 40 MG DELAYED RELEASE TAB PO SCH (07:59)
[2016-12-09] MEDS: LISINOPRIL 20 MG TAB PO SCH ×2 (07:59→20:09)
[2016-12-09] MEDS: METOPROLOL TARTRATE 25 MG TAB PO SCH ×2 (08:00→20:09)
[2016-12-09] MEDS: DULoxetine HCl DR 20 MG CAP PO SCH (09:00)
--- NOTE | 2016-12-09 09:11 | PD.CONS ---
HPI History of Present Illness This is a 76 year old female patient who was transferred to the medical psychiatric unit after being hospitalized for a drug overdose on benzodiazepines and narcotic pain meds. She has a hx of depression and had reportedly said that she wanted to "sleep." She was originally evaluated and treated by the critical care team and required mechanical ventilation. Her condition improved, she was extubated and tx to the medical psychiatric unit for further treatment of her depression. The nurse reports that overnight, she vomited a large amount of coffee ground emesis. She reports that she has not had any further episodes today. While I was in the room, there was a small amount of dried red blood around her oral cavity. The nurse reports that she ate a regular breakfast- eggs, toast. The patient is confused and unable to provide much history. She denies any nausea, vomiting, heartburn, or abdominal pain and does not recall having any episodes of GI bleeding. She does have a long history issues with chronic GERD and esophagitis and is well known to our service. She was last evaluated endoscopically back in 2014. Colonoscopy (05/23) revealed moderate diverticulosis noted in sigmoid colon, a few arteriovenous malformations measuring 1 mm in size were found at the cecum, retroflex views revealed medium internal hemorrhoids, revealed external hemorrhoids. EGD (07/05/15) revealed LA class a esophagitis, retroflex views revealed no abnormalities. 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 I do not believe she ever had the repeat enteroscopy as recommended by the capsule endoscopy. Called daughter Annita Lovelace at to discuss further evaluation with EGD/Enteroscopy- procedure, risks, benefits. Unfortunately there was no answer and the voicemail has not been activated. (Gogo Limon) PFSH Past Medical History Allergic rhinitis Anemia Arthritis Atherosclerosis of aorta Judge's esophagus Chronic obstructive pulmonary disease Chronic kidney disease Close fracture of the right inferior and superior pubic ramus Diverticulosis Duodenal arteriovenous malformation Dysphasia Gastroparesis GERD Hiatal hernia Hypertension Rectal bowel syndrome Liver pain History of right renal mass Vitamin D insufficiency Vitiligo Past Surgical History Left arthroscopic knee surgery Breast biopsy Capsule endoscopy Laparoscopic cholecystectomy EGD/colonoscopy Conrado fundoplication Laminectomy of lumbar spine Laryngoscopy Left breast lumpectomy Rotator cuff surgery (Gogo Limon) Coded Allergies: Cipro (Unverified Allergy, Severe, THRUSH, 10/05/15) Demerol (Verified Allergy, Severe, Nausea/Vomiting, 10/05/15) Lortab (Verified Allergy, Severe, convulsion, 10/05/15) Morphine (Verified Allergy, Severe, VOMITING, 10/05/15) Percocet (Verified Allergy, Severe, CONVULSION, 10/05/15) Reglan (Verified Adverse Reaction, Intermediate, ANXIETY, 10/05/15) *MDRO Multi-Drug Resistant Organism (Verified Adverse Reaction, Unknown, ) 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) - 02/2015 Medications Allergies Coded Allergies Type Severity Reaction Last Updated Verified Cipro Allergy Severe THRUSH 10/05/15 No Demerol Allergy Severe Nausea/Vomiting 10/05/15 Yes Lortab Allergy Severe convulsion 10/05/15 Yes Morphine Allergy Severe VOMITING 10/05/15 Yes Percocet Allergy Severe CONVULSION 10/05/15 Yes Reglan Adverse Reaction Intermediate ANXIETY 10/05/15 Yes *MDRO Multi-Drug Resistant Organism Adverse Reaction Unknown 12/01/16 Yes Active Scripts Medications Dose Route/Sig Days Date Category Lisinopril 20 Mg Tab 20 Mg PO BID 12/05/[address] (Duloxetine HCl) 20 Mg Capdr 20 Mg PO DAILY 12/05/16 Rx Multi Vitamin (Multiple Vitamin) 1 Tab Tab 1 Tab PO DAILY 11/30/16 Reported Aspirin 81 Mg Chew 81 Mg CHEW DAILY 11/30/16 Reported Iron (Ferrous Fumarate) 18 Mg Tab 18 Mg PO BID 11/30/16 Reported Metoprolol Tartrate 25 Mg Tab 25 Mg PO BID 11/30/16 Reported Omeprazole 20 Mg Tab 20 Mg PO DAILY 11/30/16 Reported B Complex Plus (B-Complex W/ Folic Acid) 1 Tab 1 Tab PO 11/30/16 Reported Family History Mother had Parkinson's disease and stroke, father had emphysema Social History Smoked 1 pack of cigarettes per day 47 years quit in 1998 Rare EtOH use (Gogo Limon) Review of Systems Gastrointestinal: COMPLAINS OF: Nausea, Vomiting, Hematemesis, DENIES: Abdominal pain, Black stools, Bloody stools, Constipation, Diarrhea, Swelling of Abdomen, Heartburn Psychiatric: COMPLAINS OF: Confusion ROS Pt confused, difficult to obtain (Gogo Limon) GI Exam Vitals I&O Vital Signs Date Time Temp Pulse Resp B/P Pulse Ox O2 Delivery O2 Flow Rate FiO2 12/09/16 05:34 97.4 88 16 156/64 99 12/08/16 20:00 109 15 149/76 100 12/08/16 12:24 97.7 95 28 134/63 92 12/08/16 09:08 97.2 97 16 130/67 I/O 12/08/16 12/08/16 12/08/16 12/09/16 12/09/16 12/09/16 07:00 15:00 23:00 07:00 15:00 23:00 Intake Total 120 ml 260 ml 100 ml 0 ml Balance 120 ml 260 ml 100 ml 0 ml Intake Oral 120 ml 260 ml 100 ml 0 ml # Voids 3 0 Imaging Last Impressions Chest X-Ray 12/08/16 0000 Signed Impressions: Service Date/Time: Thursday, December 08, 2016 13:56 - CONCLUSION: 1. Mild chronic changes with biapical scarring/fibrosis and bibasilar atelectatic changes. No confluent infiltrate. 2. Possible small right-sided effusion with some blunting of the costophrenic angle. 3. Heart size is normal. Louis Black MD Laboratory Test 12/08/16 11:25 White Blood Count 22.9 TH/MM3 Red Blood Count 3.05 MIL/MM3 Hemoglobin 8.5 GM/DL Hematocrit 26.8 % Mean Corpuscular Volume 87.9 FL Mean Corpuscular Hemoglobin 27.7 PG Mean Corpuscular Hemoglobin 31.6 % Concent Red Cell Distribution Width 15.3 % Platelet Count 670 TH/MM3 Mean Platelet Volume 8.3 FL Neutrophils (%) (Auto) 84.9 % Lymphocytes (%) (Auto) 7.4 % Monocytes (%) (Auto) 7.2 % Eosinophils (%) (Auto) 0.2 % Basophils (%) (Auto) 0.3 % Neutrophils # (Auto) 19.4 TH/MM3 Lymphocytes # (Auto) 1.7 TH/MM3 Monocytes # (Auto) 1.6 TH/MM3 Eosinophils # (Auto) 0.0 TH/MM3 Basophils # (Auto) 0.1 TH/MM3 CBC Comment DIFF FINAL Differential Comment Sodium Level 129 MEQ/L Potassium Level 3.9 MEQ/L Chloride Level 92 MEQ/L Carbon Dioxide Level 29.1 MEQ/L Anion Gap 8 MEQ/L Blood Urea Nitrogen 33 MG/DL Creatinine 0.68 MG/DL Estimat Glomerular Filtration 84 ML/MIN Rate Random Glucose 129 MG/DL Calcium Level 8.6 MG/DL Magnesium Level 1.8 MG/DL Physical Examination HEENT: Normocephalic; atraumatic; no jaundice. Small amount of dried red blood from corner of mouth CHEST: CTA CARDIAC: RRR ABDOMEN: Soft, nondistended, nontender; no hepatosplenomegaly; bowel sounds are present in all four quadrants. EXTREMITIES: No clubbing, cyanosis, or edema. SKIN: Normal; no rash; no jaundice. GARBAGE WORKER: No focal deficits; Lethargic, confused. (Gogo Limon) Assessment and Plan Plan ASSESSMENT: - GIB, Upper. Pt had "coffee ground emesis" overnight. The nurse reports that she has not had any further nausea/vomiting, bleeding. She ate a regular tray around 8:30 with toast and eggs. She has dried red blood noted around her mouth. The patient is confused and refusing any GI symptoms. No H/H was done after the episode last night, but HH yesterday was 8.5/26.8. The patient is well known to our service and has a long history of GERD/Esophagitis and was noted to have AVMs in the duodenum in the past. She was last evaluated by us endoscopically back in 2014- Colonoscopy () revealed moderate diverticulosis noted in sigmoid colon, a few arteriovenous malformations measuring 1 mm in size were found at the cecum, retroflex views revealed medium internal hemorrhoids, revealed external hemorrhoids. EGD (07/05/15) revealed LA class a esophagitis , retroflex views revealed no abnormalities. 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 I do not believe she ever had the repeat enteroscopy as recommended by the capsule endoscopy. Called daughter Annita Lovelace at to discuss further evaluation with EGD/Enteroscopy- procedure, risks, benefits. Unfortunately there was no answer and the voicemail has not been activated. - Confusion, OD on benzo/narcotics, Depression per psych. PLAN: - Possible EGD/Enteroscopy later in day - Obtain consents - NPO - Stat CBC - H/H q6h - Transfuse as necessary - Protonix Gtt - Supportive care - Further recommendations to follow based on result of above - Pt seen and examined by Dr. Escalera and myself and this note is written on his behalf (Gogo Limon) Physician Comments Patient seen and examined Agree with above Continue current supportive care Monitor labs Plan for an EGD tomorrow (Ace Escalera MD) Gogo Limon Dec 09, 2016 09:11 Ace Escalera MD Dec 09, 2016 21:25
--- NOTE | 2016-12-09 10:35 | HHI.PR ---
Subjective Remarks LATE ENTRY NOTE WRITTEN ON THIS PT 12/08/16 DID NOT SAVE IN [place] Nursing staff notified me that pt had 3 episodes of hematemesis. per nursing it was a small quantity. Pt's PO intake has been poor 12/08. Pt has dementia and is a poor historian. Objective Vitals Vital Signs Date Time Temp Pulse Resp B/P Pulse Ox O2 Delivery O2 Flow Rate FiO2 12/09/16 05:34 97.4 88 16 156/64 99 12/08/16 20:00 109 15 149/76 100 12/08/16 12:24 97.7 95 28 134/63 92 12/08/16 12/08/16 12/09/16 15:00 23:00 07:00 Intake Total 260 ml 100 ml Balance 260 ml 100 ml Intake Oral 260 ml 100 ml # Voids 0 Result Diagram: 12/08/16 1125 12/08/16 1125 Imaging Last Impressions Chest X-Ray 12/08/16 0000 Signed Impressions: Service Date/Time: Thursday, December 08, 2016 13:56 - CONCLUSION: 1. Mild chronic changes with biapical scarring/fibrosis and bibasilar atelectatic changes. No confluent infiltrate. 2. Possible small right-sided effusion with some blunting of the costophrenic angle. 3. Heart size is normal. Louis Black MD Objective Remarks GENERAL: This is a well-nourished, well-developed patient, in no apparent distress. CARDIOVASCULAR: Regular rate and rhythm without murmurs, gallops, or rubs. RESPIRATORY: Clear to auscultation. Breath sounds equal bilaterally. No wheezes , rales, or rhonchi. GASTROINTESTINAL: Abdomen soft, non-tender, nondistended. Normal active bowel sounds MUSCULOSKELETAL: Extremities without clubbing, cyanosis, or edema. NEURO: A&Ox2, KAUR A/P Problem List: (1) Hematemesis Status: Acute Plan: - vitals stable - pt is anemic, but Hg c/w prior - IV Protonix - Consult GI for likely EGD - serial CBCs (2) OD (overdose of drug) Status: Acute Plan: - mgmt per Psychiatry (3) Situational depression Status: Acute Plan: see above (4) HTN (hypertension) Status: Chronic Plan: see above Problem Qualifiers (1) Hematemesis: Qualified Code: K92.0 - Hematemesis, presence of nausea not specified (2) HTN (hypertension): Qualified Code: I10 - Essential hypertension Varinder Moreno DO Dec 09, 2016 10:35
[2016-12-09 12:54] LABS: AUTOMATED NEUTROPHIL # 17.1 TH/MM3 (1.8-7.7); BASOPHIL % 0.2 % (0.0-2.0); EOSINOPHIL # 0.1 TH/MM3 (0-0.4); EOSINOPHIL % 0.5 % (0.0-4.0); HEMATOCRIT 27.3 % (35.0-46.0); LYMPH % 5.8 % (9.0-44.0); LYMPHOCYTE # 1.2 TH/MM3 (1.0-4.8); MEAN CELL VOLUME 87.7 FL (80.0-100.0); MEAN CORPUSCULAR HEMOGLOBIN 28.6 PG (27.0-34.0); MEAN CORPUSCULAR HGB CONC 32.6 % (32.0-36.0); MONO % 8.1 % (0.0-8.0); NEUT % 85.4 % (16.0-70.0); PLATELET COUNT 716 TH/MM3 (150-450); RED BLOOD COUNT 3.11 MIL/MM3 (4.00-5.30); RED CELL DISTRIBUTION WIDTH 15.1 % (11.6-17.2); WHITE BLOOD COUNT 20.1 TH/MM3 (4.0-11.0)
[2016-12-09 12:56] LABS: HEMO FLAGS AUTO DIFF
[2016-12-09 13:23] LABS: BICARBONATE 24.7 MEQ/L (21.0-32.0); MAGNESIUM 1.7 MG/DL (1.5-2.5); POTASSIUM 4.4 MEQ/L (3.5-5.1)
[2016-12-09 13:43] LABS: EOSINOPHILS 1 % (0-4); METAMYELOCYTES 2 % (0-1); MYELOCYTES 1 % (0-0); NEUTROPHIL # MANUAL DIFF 18.1 TH/MM3 (1.8-7.7); PLATELET ESTIMATE SMEAR HIGH (NORMAL); PLATELET MORPHOLOGY NORMAL (NORMAL); POLYS (SEG NEUTROPHILS) 87 % (16-70); SCAN/DIFF FINAL DIFF MANUAL; WBC DIFF SAMPLE 100
[2016-12-09] MEDS ORDERED: LORazepam 0.5 MG TAB PO PRN (14:15)
--- NOTE | 2016-12-09 16:41 | HHI.PR ---
Subjective Remarks Pt has NO new complaints. Pt is A&Ox 2, but some confusion. Pt denies vomiting. Nursing does NOT report any vomiting or coffee ground emesis today. Pt c/o weakness. Objective Vitals Vital Signs Date Time Temp Pulse Resp B/P Pulse Ox O2 Delivery O2 Flow Rate FiO2 12/09/16 05:34 97.4 88 16 156/64 99 12/08/16 20:00 109 15 149/76 100 12/08/16 12/08/16 12/09/16 15:00 23:00 07:00 Intake Total 260 ml 100 ml Balance 260 ml 100 ml Intake Oral 260 ml 100 ml # Voids 0 Result Diagram: 12/09/16 1154 12/09/16 1154 Imaging Last Impressions Chest X-Ray 12/08/16 0000 Signed Impressions: Service Date/Time: Thursday, December 08, 2016 13:56 - CONCLUSION: 1. Mild chronic changes with biapical scarring/fibrosis and bibasilar atelectatic changes. No confluent infiltrate. 2. Possible small right-sided effusion with some blunting of the costophrenic angle. 3. Heart size is normal. Louis Black MD Objective Remarks GENERAL: This is a well-nourished, well-developed patient, in no apparent distress. CARDIOVASCULAR: Regular rate and rhythm without murmurs, gallops, or rubs. RESPIRATORY: Clear to auscultation. Breath sounds equal bilaterally. No wheezes , rales, or rhonchi. GASTROINTESTINAL: Abdomen soft, non-tender, nondistended. Normal active bowel sounds MUSCULOSKELETAL: Extremities without clubbing, cyanosis, or edema. NEURO: A&Ox2, KAUR A/P Problem List: (1) Hematemesis Status: Acute Plan: - comgmt with GI - vitals stable - pt is anemic, but Hg c/w prior - IV Protonix - Pt to undergo EGD - repeat CBC in AM (2) Leukocytosis Status: Acute Plan: - NO fever - repeat CBC in AM - obtain UA/Cx - obtain CXR (PA & lat) - no cough, no c/o dysuria, O2 sat stable on RA (3) OD (overdose of drug) Status: Acute Plan: - mgmt per Psychiatry (4) Situational depression Status: Acute Plan: see above (5) HTN (hypertension) Status: Chronic Plan: see above Problem Qualifiers (1) Hematemesis: Qualified Code: K92.0 - Hematemesis, presence of nausea not specified (2) HTN (hypertension): Qualified Code: I10 - Essential hypertension Varinder Moreno DO Dec 09, 2016 16:41
[2016-12-09 20:05] VITALS: BP 150/67; PULSE 90; RESP 20; TEMP 97.6; O2SAT 100
[2016-12-09] MEDS: MIRTAZAPINE 15 MG TAB PO SCH (20:09)
[2016-12-10] MEDS: PANTOPRAZOLE INJ 80 MG in SODIUM CHLORIDE 0.9% INJ 100 ML IV SCH ×2 (00:29→12:13)
[2016-12-10 05:19] VITALS: BP 136/64; PULSE 97; RESP 16; TEMP 97.9; O2SAT 99
[2016-12-10 05:43] LABS: AUTOMATED NEUTROPHIL # 12.8 TH/MM3 (1.8-7.7); BASOPHIL % 0.2 % (0.0-2.0); EOSINOPHIL # 0.2 TH/MM3 (0-0.4); EOSINOPHIL % 1.3 % (0.0-4.0); HEMATOCRIT 25.2 % (35.0-46.0); LYMPH % 10.3 % (9.0-44.0); LYMPHOCYTE # 1.7 TH/MM3 (1.0-4.8); MEAN CELL VOLUME 87.6 FL (80.0-100.0); MEAN CORPUSCULAR HGB CONC 33.1 % (32.0-36.0); MONO % 8.7 % (0.0-8.0); NEUT % 79.5 % (16.0-70.0); PLATELET COUNT 723 TH/MM3 (150-450); RED BLOOD COUNT 2.87 MIL/MM3 (4.00-5.30); WHITE BLOOD COUNT 16.1 TH/MM3 (4.0-11.0)
[2016-12-10 05:46] LABS: HEMO FLAGS AUTO DIFF
[2016-12-10] MEDS: LISINOPRIL 20 MG TAB PO SCH ×2 (07:55→20:00)
[2016-12-10] MEDS: DULoxetine HCl DR 20 MG CAP PO SCH (07:55)
[2016-12-10] MEDS: METOPROLOL TARTRATE 25 MG TAB PO SCH ×2 (07:55→20:00)
[2016-12-10] MEDS: NIFEdipine 30 MG SUSTAINED RELEASE TAB PO SCH (07:56)
[2016-12-10 07:57] LABS: BANDS 7 % (0-6); EOSINOPHILS 3 % (0-4); MYELOCYTES 2 % (0-0); NEUTROPHIL # MANUAL DIFF 13.5 TH/MM3 (1.8-7.7); POLYS (SEG NEUTROPHILS) 75 % (16-70); WBC DIFF SAMPLE 100
[2016-12-10 07:58] LABS: ACANTHOCYTES OCC (NORMAL); OVALOCYTES 1+ (NORMAL); PLATELET ESTIMATE SMEAR HIGH (NORMAL); PLATELET MORPHOLOGY NORMAL (NORMAL); SCAN/DIFF FINAL DIFF MANUAL
[2016-12-10 08:00] LABS: POLYCHROMASIA 2.1 % (0.0-1.9)
[2016-12-10 09:05] LABS: BACTERIA, URINE RARE /hpf; BLOOD, URINE NEG (NEG); COMMENT (UR) CULTURE INDICATED; CULTURE IF INDICATED CULTURE INDICATED; GLUCOSE,URINE NEG (NEG); KETONE, URINE TRACE mg/dL (NEG); NITRITE,URINE NEG (NEG); PH, URINE 6.5 (5.0-8.5); SQUAMOUS EPITHELIAL CELL URINE 1 /hpf (0-5); TRANSITIONAL EPI CELLS, URINE <1 /hpf; URINE COLOR YELLOW (YELLW/STRAW)
--- NOTE | 2016-12-10 09:12 | HHI.PR ---
Subjective Remarks Pt to undergo EGD today. No vomiting today. Objective Vitals Vital Signs Date Time Temp Pulse Resp B/P Pulse Ox O2 Delivery O2 Flow Rate FiO2 12/10/16 05:19 97.9 97 16 136/64 99 12/09/16 20:05 97.6 90 20 150/67 100 12/09/16 12/09/16 12/10/16 15:00 23:00 07:00 Intake Total 0 ml 20 ml Output Total 200 ml Balance 0 ml -180 ml Intake Oral 0 ml 20 ml Output Urine Total 200 ml # Voids 1 Result Diagram: 12/10/16 0434 12/09/16 1154 Imaging Last Impressions Chest X-Ray 12/08/16 0000 Signed Impressions: Service Date/Time: Thursday, December 08, 2016 13:56 - CONCLUSION: 1. Mild chronic changes with biapical scarring/fibrosis and bibasilar atelectatic changes. No confluent infiltrate. 2. Possible small right-sided effusion with some blunting of the costophrenic angle. 3. Heart size is normal. Louis Black MD Objective Remarks GENERAL: This is a well-nourished, well-developed patient, in no apparent distress. CARDIOVASCULAR: Regular rate and rhythm without murmurs, gallops, or rubs. RESPIRATORY: Clear to auscultation. Breath sounds equal bilaterally. No wheezes , rales, or rhonchi. GASTROINTESTINAL: Abdomen soft, non-tender, nondistended. Normal active bowel sounds MUSCULOSKELETAL: Extremities without clubbing, cyanosis, or edema. NEURO: A&Ox2, KAUR A/P Problem List: (1) Hematemesis Status: Acute Plan: - comgmt with GI - vitals stable - pt is anemic, but Hg c/w prior - continue IV Protonix - Pt to undergo EGD today - repeat CBC in AM (2) Leukocytosis Status: Acute Plan: - improving - NO fever - repeat CBC in AM - UA/Cx --> pending - CXR (11/30/16) --> no infiltrate - no cough, no c/o dysuria, O2 sat stable on RA - observe (3) OD (overdose of drug) Status: Acute Plan: - mgmt per Psychiatry (4) Situational depression Status: Acute Plan: see above (5) HTN (hypertension) Status: Chronic Plan: see above Problem Qualifiers (1) Hematemesis: Qualified Code: K92.0 - Hematemesis, presence of nausea not specified (2) HTN (hypertension): Qualified Code: I10 - Essential hypertension Varinder Moreno DO Dec 10, 2016 09:12
[2016-12-10] MEDS ORDERED: PANTOPRAZOLE SOD 40 MG DELAYED RELEASE TAB PO SCH (09:15)
--- NOTE | 2016-12-10 09:50 | RADRPT ---
EXAM DATE/TIME: 12/10/2016 08:07 [facility] COMPARISON: CHEST SINGLE AP, December 08, 2016, 13:56. INDICATIONS : Short of breath, leukocytosis, possible infection MEDICAL HISTORY : None. SURGICAL HISTORY : None. ENCOUNTER: Subsequent ACUITY: 1 week PAIN SCORE: Non-responsive. LOCATION: Bilateral chest FINDINGS: Frontal and lateral views of the chest demonstrate a normal-sized cardiac silhouette. Lungs are mildl y underinflated. There is hazy opacity in both lung bases with small pleural-based opacities bilatera lly best visualized on the lateral projection. No pneumothorax is visualized. The bones and soft tiss ues demonstrate no acute finding. Multiple clips overlie the upper abdomen. CONCLUSION: Stable chest x-ray with small bilateral pleural effusions with associated compressive atelectasis and /or mild consolidation at the lung bases. Dima Cooper MD on December 10, 2016 at 9:45 Board Certified Radiologist. This report was verified electronically.
[2016-12-10] MEDS: NS + KCL 20 MEQ INJ 1,000 ML IV SCH ×2 (10:04→21:35)
[2016-12-10] MEDS ORDERED: PHENYLEPH/NS 1000 MCG/10 ML SYR IV ONE (12:00)
[2016-12-10 13:44] VITALS: BP 126/68; PULSE 119; RESP 22; TEMP 96.8; O2SAT 95
[2016-12-10] MEDS ORDERED: PROPOFOL 200 MG/20 ML AMP IV ONE (17:21)
[2016-12-10 17:42] VITALS: BP 147/63; PULSE 119; RESP 22; TEMP 97.6; O2SAT 94
[2016-12-10] MEDS ORDERED: *RESP: ALBUTEROL 2.5 MG/3 ML NEB (PRN) PERIprocedural Use ONLY NEB ONE (18:11)
--- NOTE | 2016-12-10 18:21 | PD.PROCEDR ---
GI Procedure REFERRING PHYSICIAN Dr. wasserman PROCEDURE PERFORMED EGD with biopsy and pyloric dilatation INDICATION FOR PROCEDURE Nausea vomiting upper GI bleed PROCEDURE: The procedure, risks and benefits were discussed with Ms. Shafer and informed consent was obtained. Anesthesia sedated her with Diprivan. She was placed in the left lateral decubitus position. EGD: The Pentax videoscope was introduced through the oropharynx and advanced to the second portion of the duodenum under direct visualization. Retroflexion was performed in the stomach. FINDINGS: The esophagus there was severe ulcerative esophagitis in the distal esophagus this was biopsied The stomach the stomach was full old with food and the evaluation was incomplete there were superficial ulcers in the antrum and the pylorus appeared to be severely stenosed biopsies were taken from the antrum and then using a balloon dilator sizes 6,7 and 8 then followed by 03/24/10 postdilatation view was satisfactory I still was not able to pass the scope but I did not see a tear The duodenum this was not seen ESTIMATED BLOOD LOSS: None SPECIMENS REMOVED: Esophageal and antrum COMPLICATIONS: None IMPRESSION: Ulcerative esophagitis Retained food in the stomach Pyloric stenosis Gastric ulcers PLAN: Await biopsy Continue PPI Low-residue diet EGD with dilation of the pylorus in 1-2 weeks Continue supportive care Ace Escalera MD Dec 10, 2016 18:21
[2016-12-10] MEDS ORDERED: *ONDANSETRON 4 MG VIAL PERIprocedural Use ONLY ONE (18:31)
[2016-12-10] MEDS ORDERED: LORazepam 0.5 MG TAB PO PRN (21:00)
[2016-12-10 21:05] VITALS: BP 130/58; PULSE 118; RESP 16; TEMP 98.3; O2SAT 92
[2016-12-11] MEDS: PANTOPRAZOLE INJ 80 MG in SODIUM CHLORIDE 0.9% INJ 100 ML IV SCH (02:45)
[2016-12-11 06:08] VITALS: BP 106/63; PULSE 103; RESP 16; TEMP 98.5; O2SAT 96
[2016-12-11 08:20] LABS: AUTOMATED NEUTROPHIL # 11.3 TH/MM3 (1.8-7.7); BASOPHIL % 0.3 % (0.0-2.0); EOSINOPHIL # 0.2 TH/MM3 (0-0.4); EOSINOPHIL % 1.3 % (0.0-4.0); HEMATOCRIT 22.6 % (35.0-46.0); HEMO FLAGS DIFF FINAL; LYMPH % 9.3 % (9.0-44.0); LYMPHOCYTE # 1.3 TH/MM3 (1.0-4.8); MEAN CELL VOLUME 88.5 FL (80.0-100.0); MEAN CORPUSCULAR HEMOGLOBIN 27.9 PG (27.0-34.0); MEAN CORPUSCULAR HGB CONC 31.6 % (32.0-36.0); MONO % 8.3 % (0.0-8.0); NEUT % 80.8 % (16.0-70.0); PLATELET COUNT 669 TH/MM3 (150-450); RED BLOOD COUNT 2.56 MIL/MM3 (4.00-5.30); RED CELL DISTRIBUTION WIDTH 15.3 % (11.6-17.2)
[2016-12-11] MEDS: NIFEdipine 30 MG SUSTAINED RELEASE TAB PO SCH (09:00)
[2016-12-11] MEDS: DULoxetine HCl DR 30 MG CAP PO SCH (09:17)
[2016-12-11] MEDS: LISINOPRIL 20 MG TAB PO SCH ×2 (09:17→21:04)
[2016-12-11] MEDS: METOPROLOL TARTRATE 25 MG TAB PO SCH ×2 (09:17→21:04)
[2016-12-11] MEDS: NS + KCL 20 MEQ INJ 1,000 ML IV SCH ×2 (09:36→22:12)
--- NOTE | 2016-12-11 16:20 | HHI.PR ---
Subjective Remarks Nursing states that pt's PO intake is quite poor. Pt c/o pain at her tongue. Objective Vitals Vital Signs Date Time Temp Pulse Resp B/P Pulse Ox O2 Delivery O2 Flow Rate FiO2 12/11/16 06:08 98.5 103 16 106/63 96 12/10/16 21:05 98.3 118 16 130/58 92 12/10/16 19:25 116 20 123/57 94 Nasal Cannula 4 12/10/16 19:15 98.4 118 20 117/62 93 Nasal Cannula 4 12/10/16 19:00 119 18 116/55 93 Nasal Cannula 4 12/10/16 18:45 112 18 120/59 95 Nasal Cannula 4 12/10/16 18:30 111 20 133/61 93 Nasal Cannula 4 12/10/16 18:15 107 18 128/60 94 Nasal Cannula 4 12/10/16 18:00 97.7 110 18 130/62 Nasal Cannula 4 12/10/16 17:42 97.6 119 22 147/63 94 12/10/16 12/10/16 12/11/16 15:00 23:00 07:00 Intake Total 300 ml 0 ml Output Total 0 ml 500 ml Balance 300 ml -500 ml Intake Oral 0 ml 0 ml IV Total 100 ml Other 200 ml Output Urine Total 0 ml 500 ml # Voids 0 Result Diagram: 12/11/16 0725 12/09/16 1154 Imaging Last Impressions Chest X-Ray 12/08/16 0000 Signed Impressions: Service Date/Time: Thursday, December 08, 2016 13:56 - CONCLUSION: 1. Mild chronic changes with biapical scarring/fibrosis and bibasilar atelectatic changes. No confluent infiltrate. 2. Possible small right-sided effusion with some blunting of the costophrenic angle. 3. Heart size is normal. Louis Black MD Objective Remarks GENERAL: This is a well-nourished, well-developed patient, in no apparent distress. CARDIOVASCULAR: Regular rate and rhythm without murmurs, gallops, or rubs. RESPIRATORY: Clear to auscultation. Breath sounds equal bilaterally. No wheezes , rales, or rhonchi. GASTROINTESTINAL: Abdomen soft, non-tender, nondistended. Normal active bowel sounds MUSCULOSKELETAL: Extremities without clubbing, cyanosis, or edema. NEURO: A&Ox2, KAUR A/P Problem List: (1) Volume overload Status: Acute Plan: - recent transfusion - obtain echocardiogram - obtain albumin level - obtain BNP - start IV lasix/PO KCL - observe for clinical response (2) Hematemesis Status: Acute Plan: - comgmt with GI - EGD (12/10/16) with Dr. Escalera - Ulcerative esophagitis - Retained food in the stomach - Pyloric stenosis - Gastric ulcers - IV protonix - low residue diet - repeat EGD with dilatio of the pylorous in 1-2 weeds - await Bx - case d/w Dr. Escalera (12/11/16) - supportive care - Repeat CBC in AM (3) Leukocytosis Status: Acute Plan: - improving - likely reactive d/t above process - NO fever - repeat CBC in AM - UA/Cx --> gram negative rods 25-50K CFU, will NOT treat - CXR (11/30/16) --> small b/l pleural effusions - no cough, no c/o dysuria, O2 sat stable on RA - observe (4) Bladder retention of urine Status: Acute Plan: - ann - observe (5) OD (overdose of drug) Status: Acute Plan: - mgmt per Psychiatry (6) Situational depression Status: Acute Plan: see above (7) HTN (hypertension) Status: Chronic Plan: see above (8) Thrush, oral Status: Acute Plan: - start nystatin s/s Problem Qualifiers (1) Volume overload: Qualified Code: E87.70 - Hypervolemia, unspecified hypervolemia type (2) Hematemesis: Qualified Code: K92.0 - Hematemesis, presence of nausea not specified (3) HTN (hypertension): Qualified Code: I10 - Essential hypertension Varinder Moreno DO Dec 11, 2016 16:20
[2016-12-11] MEDS: FUROSEMIDE 40 MG/4 ML VIAL IV PUSH SCH (16:30)
[2016-12-11] MEDS: POTASSIUM CHLORIDE 20 MEQ CONTROLLED RELEASE TAB PO SCH (16:30)
[2016-12-11] MEDS ORDERED: PANTOPRAZOLE INJ 80 MG in SODIUM CHLORIDE 0.9% INJ 100 ML IV SCH (18:00)
[2016-12-11] MEDS: NYSTATIN SUSP 500,000 U/5 ML CUP SWISH-SWAL SCH ×2 (18:00→21:04)
[2016-12-11 19:52] VITALS: BP 104/54; PULSE 91; RESP 18; TEMP 98.1; O2SAT 98
[2016-12-12 04:31] LABS: AUTOMATED NEUTROPHIL # 7.8 TH/MM3 (1.8-7.7); BASOPHIL % 0.4 % (0.0-2.0); EOSINOPHIL # 0.3 TH/MM3 (0-0.4); EOSINOPHIL % 3.1 % (0.0-4.0); LYMPH % 12.9 % (9.0-44.0); LYMPHOCYTE # 1.4 TH/MM3 (1.0-4.8); MEAN CORPUSCULAR HEMOGLOBIN 28.5 PG (27.0-34.0); MEAN CORPUSCULAR HGB CONC 32.4 % (32.0-36.0); MONO % 10.8 % (0.0-8.0); NEUT % 72.8 % (16.0-70.0); PLATELET COUNT 549 TH/MM3 (150-450); RED BLOOD COUNT 2.25 MIL/MM3 (4.00-5.30); RED CELL DISTRIBUTION WIDTH 15.3 % (11.6-17.2); WHITE BLOOD COUNT 10.7 TH/MM3 (4.0-11.0)
[2016-12-12 04:42] LABS: HEMO FLAGS AUTO DIFF
[2016-12-12 04:48] LABS: HEMATOCRIT 19.8 % (35.0-46.0)
[2016-12-12 05:05] LABS: ALKALINE PHOSPHATASE 55 U/L (45-117); ALT (GPT) 18 U/L (10-53); ANION GAP 9 MEQ/L (5-15); AST (GOT) 15 U/L (15-37); BICARBONATE 22.1 MEQ/L (21.0-32.0); BLOOD UREA NITROGEN 24 MG/DL (7-18); CHLORIDE 110 MEQ/L (98-107); GLOMERULAR FILTRATION RATE 88 ML/MIN (>89); MAGNESIUM 1.8 MG/DL (1.5-2.5); POTASSIUM 3.9 MEQ/L (3.5-5.1); SODIUM (NA) 141 MEQ/L (136-145); TOTAL BILIRUBIN ADULT 0.1 MG/DL (0.2-1.0)
[2016-12-12 05:31] LABS: BANDS 1 % (0-6); EOSINOPHILS 2 % (0-4); METAMYELOCYTES 1 % (0-1); MYELOCYTES 2 % (0-0); NEUTROPHIL # MANUAL DIFF 9.5 TH/MM3 (1.8-7.7); POLYS (SEG NEUTROPHILS) 85 % (16-70); WBC DIFF SAMPLE 100
[2016-12-12 05:32] LABS: PLATELET ESTIMATE SMEAR HIGH (NORMAL); PLATELET MORPHOLOGY NORMAL (NORMAL); SCAN/DIFF FINAL DIFF MANUAL
[2016-12-12 06:16] VITALS: BP 122/60; PULSE 94; RESP 16; TEMP 98.3; O2SAT 95
[2016-12-12] MEDS ORDERED: FUROSEMIDE 20 MG/2 ML VIAL IV PUSH SCH (07:00)
[2016-12-12] MEDS: NS + KCL 20 MEQ INJ 1,000 ML IV SCH (09:08)
[2016-12-12] MEDS: NIFEdipine 30 MG SUSTAINED RELEASE TAB PO SCH (09:20)
[2016-12-12] MEDS: NYSTATIN SUSP 500,000 U/5 ML CUP SWISH-SWAL SCH ×2 (09:20→13:00)
[2016-12-12] MEDS: METOPROLOL TARTRATE 25 MG TAB PO SCH (09:20)
[2016-12-12] MEDS: DULoxetine HCl DR 30 MG CAP PO SCH (09:20)
[2016-12-12] MEDS: FUROSEMIDE 40 MG/4 ML VIAL IV PUSH SCH (09:21)
[2016-12-12] MEDS: LISINOPRIL 20 MG TAB PO SCH (09:21)
[2016-12-12] MEDS: POTASSIUM CHLORIDE 20 MEQ CONTROLLED RELEASE TAB PO SCH (09:21)
--- NOTE | 2016-12-12 20:01 | EC ---
Study Study Date:12/12/2016 STUDY CONCLUSIONS SUMMARY - Left ventricle: The cavity size was normal. Wall thickness was normal. Systolic function was normal. The estimated ejection fraction was in the range of 55% to 60%. Wall motion was normal; there were no regional wall motion abnormalities. - Mitral valve: Mild regurgitation. - Tricuspid valve: Mild regurgitation. - Pulmonary arteries: PA peak pressure: 41mm Hg (S). If LV function is below 40, please consider prescribing an ACEI or ARB or document rationale for non-use. PROCEDURE DATA STUDY STATUS: Elective. Procedure: Transthoracic echocardiography. Image quality was good. Scanning was performed from the parasternal, apical, and subcostal acoustic windows. Study completion: The patient tolerated the procedure well. Transthoracic echocardiography. M-mode, complete 2D, complete spectral Doppler, and color Doppler. Patient status: Inpatient. CARDIAC ANATOMY LEFT VENTRICLE: The cavity size was normal. Wall thickness was normal. Systolic function was normal. The estimated ejection fraction was in the range of 55% to 60%. Wall motion was normal; there were no regional wall motion abnormalities. AORTIC VALVE: Trileaflet; normal thickness leaflets. Doppler: Transvalvular velocity was within the normal range. There was no stenosis. No regurgitation. AORTA: Aortic root: The aortic root was normal in size. MITRAL VALVE: Structurally normal valve. Doppler: Transvalvular velocity was within the normal range. There was no evidence for stenosis. Mild regurgitation. LEFT ATRIUM: The atrium was normal in size. RIGHT VENTRICLE: The cavity size was normal. Wall thickness was normal. PULMONIC VALVE: Doppler: Transvalvular velocity was within the normal range. There was no evidence for stenosis. No regurgitation. TRICUSPID VALVE: Structurally normal valve. Doppler: Transvalvular velocity was within the normal range. Mild regurgitation. PULMONARY ARTERY: The main pulmonary artery was normal-sized. Systolic pressure was within the normal range. RIGHT ATRIUM: The atrium was normal in size. PERICARDIUM: There was no pericardial effusion. SYSTEMIC VEINS: Inferior vena cava: The vessel was normal in size. BASIC MEASUREMENTS ADULT Normal Left ventricle LV internal dimension, ED, chordal level, *32.2 mm 43-52 PLAX LV internal dimension, ES, chordal level, 23 mm 23-38 PLAX Fractional shortening, chordal level, PLAX *29 % >29 LV posterior wall thickness, ED 7.32 mm IVS/LVPW ratio, ED *1.46 <1.3 Ventricular septum Septal thickness, ED 10.7 mm Aortic valve Leaflet separation 18 mm 15-26 BASIC MEASUREMENTS ADULT Normal Aortic valve Leaflet separation 18 mm 15-26 Aorta Root diameter, ED 30 mm 20-37 Left atrium Anterior-posterior dimension, ES 29 mm 19-40 LA/aortic root ratio 0.97 DOPPLER MEASUREMENTS ADULT Normal Main pulmonary artery Pressure, S *41 mm Hg =30 Tricuspid valve Regurgitant peak velocity 269 cm/s Peak RV-RA gradient, S 29 mm Hg Maximal regurgitant velocity 269 cm/s Systemic veins Estimated CVP 10 mm Hg Right ventricle RV pressure, S *41 mm Hg <30 LEGEND: Mean values are shown as u=mean value. Asterisk (*) ochoa values outside specified normal range. Prepared and signed by Bony Rehman [id number]
--- NOTE | 2016-12-16 14:48 | MD ---
cc: TACHO MCCARTHY M.D. ADMISSION DATE: 12/05/2016 DISCHARGE DATE: 12/12/2016 ADMISSION DIAGNOSIS [place] I: Major depressive disorder, moderate, single episode. Status post overdose Lortab and Restoril. [place] II: No diagnosis. [place] III: Hypertension, anemia, gastroesophageal reflux disease, osteoarthritis, osteopenia, status post fractured pelvis, status post left breast lumpectomy, status post left knee surgery, status post right knee replacement, status post cholecystectomy, status post right rotator cuff repair, status post left L4 and L5 decompressive laminectomy. [place] IV: Severity of psychosocial stressors, moderate, i.e. multiple medical issues, restrictive lifestyle due to medical issues. [place] V: Current GAF score 40. DISCHARGE DIAGNOSIS [place] I: Major depressive disorder, moderate, single episode. Status post overdose Lortab and Restoril. [place] II: No diagnosis. [place] III: Hypertension, anemia, gastroesophageal reflux disease, osteoarthritis, osteopenia, status post fractured pelvis, status post left breast lumpectomy, status post left knee surgery, status post right knee replacement, status post cholecystectomy, status post right rotator cuff repair, status post left L4 and L5 decompressive laminectomy, GI bleeding, pyloric stenosis, ulcerative esophagitis. [place] IV: Severity of psychosocial stressors, moderate, i.e. multiple medical issues, restrictive lifestyle due to medical issues. [place] V: Current GAF score 40. BRIEF HISTORY This 76-year-old white female was [place] [facility] [place] attempt by overdose on Lortab and "sleeping pills". She was seen by me in consultation and subsequently followed by me. Once medically stabilized she was transferred to the psychiatric unit under my service. While on the medical floor I started her on Cymbalta. Please refer to my initial evaluation for details. LABORATORY WORKUP CBC with differential was done on different dates and on 12/12 her hemoglobin continued to decline and on 12/12 was 6.4 and hematocrit 19.8. BUN was elevated at 33 on 12/08 and repeated on 12/12 was 24. Serum creatinine was normal. Routine urinalysis indicative of urinary tract infection and culture grew E-coli. Chest x-ray on 12/10 showed small bilateral pleural effusion and associated compressive atelectasis, mild consolidation at the lung base. HOSPITAL COURSE Initially upon transfer to the psychiatric unit she remained depressed but quite communicative. However, she turned for the worse from a medical standpoint. She had hematemesis and as such was transferred to the med psyche unit where she continued to be followed by the medical collections. In view of progressive decline in her hemoglobin and hematocrit a GI consult was requested. She was found to have pyloric stenosis, gastric and esophageal ulcer. I discussed her medical condition with Dr. Moreno and we both felt that she needed to be transferred to the regular medical floor and as such she was transferred there. I will continue to follow her on the medical floor. MD MARCELLUS Valdez/SVETLANA /2:21 PM /2:33 PM
== END 2016-12-12 14:56 | disposition short-term general hospital (02) | DRG 881 ==
LOC: H250 16:40 → H4EA 12-08 11:50 → N07A 12-12 14:48 → H4EA 12-12 14:48 → UNDODISIN 12-12 14:56
PROVIDERS: ADMIT Psychiatry & Neurology Psychiatry; ATTEND Psychiatry & Neurology Psychiatry
PROC: 0D778ZZ Dilation of Stomach, Pylorus, Via Natural or Artificial Opening Endoscopic (ICD-10-PCS; 2016-12-10)
PROC: 0DB38ZX Excision of Lower Esophagus, Via Natural or Artificial Opening Endoscopic, Diagnostic (ICD-10-PCS; 2016-12-10)
PROC: 0DB68ZX Excision of Stomach, Via Natural or Artificial Opening Endoscopic, Diagnostic (ICD-10-PCS; principal; 2016-12-10 17:00)
DX: F43.21 Adjustment disorder with depressed mood (principal); K92.0 Hematemesis; B37.0 Candidal stomatitis; K31.1 Adult hypertrophic pyloric stenosis; F32.1 Major depressive disorder, single episode, moderate; K22.10 Ulcer of esophagus without bleeding; E55.9 Vitamin D deficiency, unspecified; T40.602A Poisoning by unspecified narcotics, intentional self-harm, initial encounter; T42.4X2A Poisoning by benzodiazepines, intentional self-harm, initial encounter; E87.70 Fluid overload, unspecified; K25.9 Gastric ulcer, unspecified as acute or chronic, without hemorrhage or perforation; D72.829 Elevated white blood cell count, unspecified; K31.84 Gastroparesis; J44.9 Chronic obstructive pulmonary disease, unspecified; R33.9 Retention of urine, unspecified; D64.9 Anemia, unspecified; K21.9 Gastro-esophageal reflux disease without esophagitis; K57.90 Diverticulosis of intestine, part unspecified, without perforation or abscess without bleeding; I12.9 Hypertensive chronic kidney disease with stage 1 through stage 4 chronic kidney disease, or unspecified chronic kidney disease; N18.9 Chronic kidney disease, unspecified; R47.02 Dysphasia; K21.0 Gastro-esophageal reflux disease with esophagitis; Z87.891 Personal history of nicotine dependence; K31.819 Angiodysplasia of stomach and duodenum without bleeding; L80 Vitiligo; M85.80 Other specified disorders of bone density and structure, unspecified site; N28.89 Other specified disorders of kidney and ureter; K44.9 Diaphragmatic hernia without obstruction or gangrene; J30.9 Allergic rhinitis, unspecified; I70.0 Atherosclerosis of aorta; Z90.49 Acquired absence of other specified parts of digestive tract; Z96.651 Presence of right artificial knee joint
CPT/HCPCS: 71010; 71020; 76937; 80048; 80076; 81001; 83735; 83880; 85007; 85025; 85027; 87077; 87086; 87186; 88305; 88312; 93306; 94664; C1726; C9113; J1940; J2370; J2405; J3480; J7613

== ENCOUNTER 2016-12-12 10:22 | Inpatient (IN) | payer MEDICARE ==
[~2016-12-12] VITALS: Ht 147.3 cm; Wt 50.5 kg
[~2016-12-12 10:22] MED LIST changes: -ALPR0.25 PO; -CALC500T35; -CHEL50TA; -CYCL1TAB29 PO; +DULO20 PO; -HYDR-3516 PO; +LISI-515 PO; -LORA-520; -LOSA50TA PO; -MEGE40TA PO; -PROC10TA PO; -SODI650T PO; -STOO100C; -TEMA15CA PO
[2016-12-12] MEDS ORDERED: FUROSEMIDE 20 MG/2 ML VIAL IV ONE (15:30)
[2016-12-12] MEDS ORDERED: SODIUM CHLOR 0.9% 250 ML INJ 250 ML IV ONE (15:30)
--- NOTE | 2016-12-12 15:47 | HHI.HP ---
HPI Service [facility] Hospitalists Primary Care Physician Daniel Soto MD Admission Diagnosis Chief Complaint: ANEMIA Travel History International Travel<30 Days: No Contact w/Intl Traveler <30 Da: No Traveled to Known Affected Are: No History of Present Illness Patient is a 68-year-old female initially admitted to [facility] 11/30/16 due to drug overdose. Patient was admitted to the ICU under the service of the center receptionist. Patient required intubation with mechanical ventilation. Once medically stabilized patient was transferred to [facility]. On 12/07/16 patient developed hematemesis and was transferred to the medical psychiatry unit. He should underwent EGD performed by Dr. Ace Escalera and on 12/10/16. Patient was found to have pyloric stenosis, gastric ulcers, ulcerative esophagitis, and retained food in the stomach. On 12/12/2016 patient's repeat hemoglobin was 6.1. Upon being called with results, I requested transfusion of 2 units of PRBCs. Patient transferred to [facility] general medical floor for further evaluation and treatment. Review of Systems ROS Limitations: Poor Historian Constitutional: DENIES: Diaphoretic episodes, Fatigue, Fever, Weight gain, Weight loss, Chills, Dizziness, Change in appetite, Night Sweats Endocrine: DENIES: Heat/cold intolerance, Polydipsia, Polyuria, Polyphagia Eyes: DENIES: Blurred vision, Diplopia, Eye inflammation, Eye pain, Vision loss , Photosensitivity, Double Vision Ears, nose, mouth, throat: DENIES: Tinnitus, Hearing loss, Vertigo, Nasal discharge, Oral lesions, Throat pain, Hoarseness, Ear Pain, Running Nose, Epistaxis, Sinus Pain, Toothache, Odynophagia Respiratory: DENIES: Apneas, Cough, Snoring, Wheezing, Hemoptysis, Sputum production, Shortness of breath Cardiovascular: DENIES: Chest pain, Palpitations, Syncope, Dyspnea on Exertion , PND, Lower Extremity Edema, Orthopnea, Claudication Gastrointestinal: COMPLAINS OF: See HPI, DENIES: Abdominal pain, Black stools , Bloody stools, BRB per rectum, Constipation, Diarrhea, GERD, Nausea, Reflux, Vomiting, Difficulty Swallowing, Anorexia Genitourinary: DENIES: Urinary frequency, Urinary incontinence, Urgency, Hematuria, Dysuria, Nocturia Musculoskeletal: DENIES: Joint pain, Muscle aches, Stiffness, Joint Swelling, Back pain, Neck pain Integumentary: DENIES: Abnormal pigmentation, Pruritus, Rash, Nail changes, Breast masses, Breast skin changes, Nipple discharge Hematologic/lymphatic: DENIES: Bruising, Lymphadenopathy Immunologic/allergic: DENIES: Eczema, Urticaria Neurologic: DENIES: Abnormal gait, Headache, Localized weakness, Paresthesias, Seizures, Speech Problems, Tremor, Poor Balance Psychiatric: DENIES: Anxiety, Confusion, Mood changes, Depression, Hallucinations, Agitation, Suicidal Ideation, Homicidal Ideation, Delusions, History of Bipolar, History of Schizophrenia Past Family Social History Past Medical History 1) hypertension 2) anemia 3) GERD 4) osteopenia 5) osteoarthritis 6) vitamin D deficiency Past Surgical History 1) previous Niesen fundoplication for GERD 2) previous arthroscopy left knee 3) left breast lumpectomy 4) right knee total knee arthroplasty 5 cholecystectomy 6) right rotator cuff repair 7) L4-L5 decompressive laminectomy Reported Medications Reported Meds & Active Scripts Active Lisinopril 20 Mg Tab 20 Mg PO BID Cymbalta DR (Duloxetine HCl) 20 Mg Capdr 20 Mg PO DAILY Reported Multi Vitamin (Multiple Vitamin) 1 Tab Tab 1 Tab PO DAILY Aspirin 81 Mg Chew 81 Mg CHEW DAILY Iron (Ferrous Fumarate) 18 Mg Tab 18 Mg PO BID Metoprolol Tartrate 25 Mg Tab 25 Mg PO BID Omeprazole 20 Mg Tab 20 Mg PO DAILY B Complex Plus (B-Complex W/ Folic Acid) 1 Tab 1 Tab PO Allergies: Coded Allergies: Cipro (Unverified Allergy, Severe, THRUSH, 10/05/15) Demerol (Verified Allergy, Severe, Nausea/Vomiting, 10/05/15) Lortab (Verified Allergy, Severe, convulsion, 10/05/15) Morphine (Verified Allergy, Severe, VOMITING, 10/05/15) Percocet (Verified Allergy, Severe, CONVULSION, 10/05/15) Reglan (Verified Adverse Reaction, Intermediate, ANXIETY, 10/05/15) *MDRO Multi-Drug Resistant Organism (Verified Adverse Reaction, Unknown, ) 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) - 02/2015 Family History Noncontributory Social History - Former smoker - No alcohol - No illicit street drugs Physical Exam Physical Exam GENERAL: This is a well-nourished, well-developed patient, in no apparent distress. SKIN: No rashes, ecchymoses or lesions. Cool and dry. HEAD: Atraumatic. Normocephalic. No temporal or scalp tenderness. EYES: Pupils equal round and reactive. Extraocular motions intact. No scleral icterus. No injection or drainage. ENT: Nose without bleeding, purulent drainage or septal hematoma. Throat without erythema, tonsillar hypertrophy or exudate. Uvula midline. Airway patent. NECK: Trachea midline. No JVD or lymphadenopathy. Supple, nontender, no meningeal signs. CARDIOVASCULAR: Regular rate and rhythm without murmurs, gallops, or rubs. RESPIRATORY: Clear to auscultation. Breath sounds equal bilaterally. No wheezes , rales, or rhonchi. GASTROINTESTINAL: Abdomen soft, non-tender, nondistended. No hepato-splenomegaly , or palpable masses. No guarding. MUSCULOSKELETAL: Extremities without clubbing, cyanosis, or edema. No joint tenderness, effusion, or edema noted. No calf tenderness. Negative Homans sign bilaterally. NEUROLOGICAL: Awake and alert. Cranial nerves II through XII intact. Motor and sensory grossly within normal limits. Five out of 5 muscle strength in all muscle groups. Normal speech. Septic Shock Reassessment Heart: Regular rate and rhythm Lungs: Clear Skin: Warm Peripheral Pulses: Bounding Right Radial Bounding Left Radial Bounding Right Popliteal Bounding Left Popliteal Bounding Right Dorsalis Pedis Bounding Left Dorsalis Pedis Bounding Right Posterior Tibial Bounding Left Posterior Tibial Capillary Refill: Brisk Assessment and Plan Problem List: (1) Anemia Status: Acute Plan: - Patient developed hematemesis while on psychiatry unit 12/07/16 - Patient transferred from medical psychiatry floor to general medical floor - Hemoglobin 8.3 (12/11/16), then dropped to 6.1 (12/12/16) - Patient will be transfused 2 units of PRBCs - reconsult GI, case d/w Dr. Ace Escalera (12/12/16) - possible repeat EGD 12/14/16 - consider Palliative Consult (2) HTN (hypertension) Status: Chronic Plan: - continue lisinopril, metoprolol (3) Depression Status: Acute Plan: - reconsult Psychiatry - continue leoncio Physician Certification 2 Midnight Certification Type: Admission for Inpatient Services Order for Inpatient Services The services are ordered in accordance with Medicare regulations or non- Medicare payer requirements, as applicable. In the case of services not specified as inpatient-only, they are appropriately provided as inpatient services in accordance with the 2-midnight benchmark. Estimated LOS (days): 3 3 days is the estimated time the patient will need to remain in the hospital, assuming treatment plan goals are met and no additional complications. Post-Hospital Plan: Not yet determined Problem Qualifiers (1) Anemia: Qualified Code: D64.9 - Anemia, unspecified type (2) HTN (hypertension): Qualified Code: I10 - Essential hypertension (3) Depression: Qualified Code: F32.9 - Depression, unspecified depression type Varinder Moreno DO Dec 12, 2016 15:47
[2016-12-12 16:00] VITALS: BP 107/53; PULSE 88; RESP 18; TEMP 96.4; O2SAT 99
[2016-12-12] MEDS: PANTOPRAZOLE SODIUM 40 MG VIAL IV PUSH SCH (16:41)
--- NOTE | 2016-12-12 17:33 | PD.CONS ---
HPI History of Present Illness This is a 76 year old female well known to me from a recent encounter when she was in the psych [facility] she had an episode of GI bleed nausea vomiting she underwent an EGD and was found to have severe ulcerative esophagitis and pyloric stenosis and antral ulcers with an incomplete evaluation of the stomach due to retained food the patient was noted to have had a further decline in her hemoglobin and as such is transferred to the [facility] for further evaluation and treatment currently she appears to be comfortable in bed denies any pain denies any nausea or vomiting [facility] Past Medical History 1) hypertension 2) anemia 3) GERD 4) osteopenia 5) osteoarthritis 6) vitamin D deficiency Past Surgical History 1) previous Niesen fundoplication for GERD 2) previous arthroscopy left knee 3) left breast lumpectomy 4) right knee total knee arthroplasty 5 cholecystectomy 6) right rotator cuff repair 7) L4-L5 decompressive laminectomy Coded Allergies: Cipro (Unverified Allergy, Severe, THRUSH, 10/05/15) Demerol (Verified Allergy, Severe, Nausea/Vomiting, 10/05/15) Lortab (Verified Allergy, Severe, convulsion, 10/05/15) Morphine (Verified Allergy, Severe, VOMITING, 10/05/15) Percocet (Verified Allergy, Severe, CONVULSION, 10/05/15) Reglan (Verified Adverse Reaction, Intermediate, ANXIETY, 10/05/15) *MDRO Multi-Drug Resistant Organism (Verified Adverse Reaction, Unknown, ) 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) - 02/2015 Medications Lisinopril 20 Mg Tab 20 Mg PO BID Cymbalta DR (Duloxetine HCl) 20 Mg Capdr 20 Mg PO DAILY Multi Vitamin (Multiple Vitamin) 1 Tab Tab 1 Tab PO DAILY Aspirin 81 Mg Chew 81 Mg CHEW DAILY Iron (Ferrous Fumarate) 18 Mg Tab 18 Mg PO BID Metoprolol Tartrate 25 Mg Tab 25 Mg PO BID Omeprazole 20 Mg Tab 20 Mg PO DAILY B Complex Plus (B-Complex W/ Folic Acid) 1 Tab 1 Tab PO Family History Noncontributory Social History No alcohol or tobacco Review of Systems ROS Review of systems Patient denies any headache dizziness blurry vision, denies any chest pain shortness of breath cough fever chills, Denies any palpitations or fatigue denies any polyuria dysuria hematuria, denies any numbness tingling or weakness, denies any skin rash pruritus or jaundice, denies any easy bruising or bleeding tendency, denies any recent change in mood GI Exam Vitals I&O Vital Signs Date Time Temp Pulse Resp B/P Pulse Ox O2 Delivery O2 Flow Rate FiO2 12/12/16 16:00 96.4 88 18 107/53 99 Physical Examination HEENT: Pupils round and reactive to light; normocephalic; atraumatic; no jaundice. Throat is clear. NECK: Neck is supple, no JVD, no lymphadenopathy. CHEST: Chest is clear to auscultation and percussion. CARDIAC: Regular rate and rhythm with no murmur gallop or rubs. ABDOMEN: Soft, nondistended, nontender; no hepatosplenomegaly; bowel sounds are present in all four quadrants. EXTREMITIES: No clubbing, cyanosis, or edema. SKIN: Normal; no rash; no jaundice. 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 Assessment and Plan Plan Anemia unclear source for this anemia Ulcerative esophagitis Gastric ulcers Pyloric stenosis Agree with current supportive care Monitor labs and transfuse as needed Plan repeat EGD with possible pyloric dilation on Wednesday Recommend PPI Avoid NSAIDs and aspirin Ace Escalera MD Dec 12, 2016 17:33
[2016-12-12 20:00] VITALS: BP 100/55; PULSE 94; RESP 19; TEMP 98.7; O2SAT 97
[2016-12-12] MEDS: LISINOPRIL 20 MG TAB PO SCH (21:00)
[2016-12-12] MEDS: METOPROLOL TARTRATE 25 MG TAB PO SCH (21:00)
[2016-12-12] MEDS ORDERED: diphenhydrAMINE HCL 25 MG CAP PO PRN (22:45)
[2016-12-12] MEDS ORDERED: ACETAMINOPHEN 325 MG TAB PO PRN (22:45)
[2016-12-12 22:50] VITALS: BP 104/51; PULSE 83; RESP 18; TEMP 99.9; O2SAT 96
--- NOTE | 2016-12-12 22:56 | RADRPT ---
EXAM DATE/TIME: 12/12/2016 22:32 [facility] COMPARISON: CHEST PA & LAT, December 10, 2016, 8:07. INDICATIONS : Fever, cough, and shortness of breath. MEDICAL HISTORY : Cardiovascular disease. Hypertension. SURGICAL HISTORY : None. ENCOUNTER: Subsequent ACUITY: 2 weeks PAIN SCORE: Non-responsive. LOCATION: chest FINDINGS: Right basilar opacity is present may be due to a combination of consolidation and or pleural effusion . Slight left lung base consolidation is also seen. There are atherosclerotic calcifications of the a saqib due to chronic atherosclerotic disease. CONCLUSION: Right basilar opacity is present may be due to a combination of consolidation and or pleural effusion and slight left lung base consolidation. Rey Hernandez MD on December 12, 2016 at 22:54 Board Certified Radiologist. This report was verified electronically.
[2016-12-12 23:05] VITALS: BP 105/54; PULSE 84; RESP 18; TEMP 99.6
[2016-12-13] VITALS (11 sets, daily range): BP systolic 104–134; BP diastolic 58–77; PULSE 74–114; RESP 16–20; TEMP 96.5–99.6; O2SAT 95–99
[2016-12-13 00:10] LABS: BACTERIA, URINE OCC /hpf; BLOOD, URINE TRACE (NEG); GLUCOSE,URINE NEG (NEG); HYALINE CAST, URINE 2 /lpf (RARE); KETONE, URINE NEG (NEG); NITRITE,URINE NEG (NEG); RENAL EPITHELIAL CELLS <1 /hpf; URINE COLOR YELLOW (YELLW/STRAW)
[2016-12-13 00:11] LABS: COMMENT (UR) CATH-CULTURE IND; CULTURE IF INDICATED CATH CULTURE IND
[2016-12-13] MEDS: PANTOPRAZOLE SODIUM 40 MG VIAL IV PUSH SCH ×2 (04:31→17:01)
[2016-12-13 07:14] LABS: AUTOMATED NEUTROPHIL # 13.6 TH/MM3 (1.8-7.7); BASOPHIL % 0.3 % (0.0-2.0); EOSINOPHIL # 0.2 TH/MM3 (0-0.4); EOSINOPHIL % 1.3 % (0.0-4.0); HEMATOCRIT 36.5 % (35.0-46.0); LYMPH % 2.4 % (9.0-44.0); LYMPHOCYTE # 0.3 TH/MM3 (1.0-4.8); MEAN CELL VOLUME 85.5 FL (80.0-100.0); MEAN CORPUSCULAR HEMOGLOBIN 28.8 PG (27.0-34.0); MEAN CORPUSCULAR HGB CONC 33.7 % (32.0-36.0); MONO % 1.4 % (0.0-8.0); NEUT % 94.6 % (16.0-70.0); PLATELET COUNT 412 TH/MM3 (150-450); RED BLOOD COUNT 4.27 MIL/MM3 (4.00-5.30); RED CELL DISTRIBUTION WIDTH 14.4 % (11.6-17.2); WHITE BLOOD COUNT 14.4 TH/MM3 (4.0-11.0)
[2016-12-13 07:30] LABS: BICARBONATE 23.9 MEQ/L (21.0-32.0); MAGNESIUM 1.6 MG/DL (1.5-2.5); POTASSIUM 3.4 MEQ/L (3.5-5.1)
[2016-12-13 07:33] LABS: HEMO FLAGS AUTO DIFF
[2016-12-13] MEDS: LISINOPRIL 20 MG TAB PO SCH ×2 (09:00→20:58)
[2016-12-13] MEDS: METOPROLOL TARTRATE 25 MG TAB PO SCH ×2 (09:00→20:58)
[2016-12-13] MEDS ORDERED: DULoxetine HCl DR 20 MG CAP PO SCH (09:00)
[2016-12-13 11:28] LABS: BANDS 7 % (0-6); BASOPHILS 1 % (0-2); BURR CELLS 1+ (NORMAL); EOSINOPHILS 2 % (0-4); MYELOCYTES 1 % (0-0); NEUTROPHIL # MANUAL DIFF 12.7 TH/MM3 (1.8-7.7); PLATELET ESTIMATE SMEAR NORMAL (NORMAL); PLATELET MORPHOLOGY NORMAL (NORMAL); POLYS (SEG NEUTROPHILS) 80 % (16-70); SCAN/DIFF FINAL DIFF MANUAL; WBC DIFF SAMPLE 100
--- NOTE | 2016-12-13 15:50 | HHI.PR ---
Subjective Remarks No new complaints. No reports of hematemesis since yesterday. Objective Vitals Vital Signs Date Time Temp Pulse Resp B/P Pulse Ox O2 Delivery O2 Flow Rate FiO2 12/13/16 12:00 96.8 103 20 117/69 99 12/13/16 08:04 85 12/13/16 08:00 97.7 95 18 122/59 96 12/13/16 07:30 97 2.00 97 12/13/16 05:35 99.1 90 18 115/59 95 12/13/16 02:45 99.4 89 18 111/58 96 12/13/16 02:30 99.6 91 18 121/58 96 12/13/16 02:20 99.6 91 18 121/58 96 12/13/16 00:00 98.6 79 104/62 95 12/12/16 23:51 16 12/12/16 23:05 99.6 84 18 105/54 12/12/16 22:50 99.9 83 18 104/51 96 12/12/16 21:00 97 Nasal Cannula 2.00 12/12/16 20:00 98.7 94 19 100/55 97 12/12/16 18:41 99 Nasal Cannula 2.00 12/12/16 16:00 96.4 88 18 107/53 99 12/12/16 12/12/16 12/13/16 15:00 23:00 07:00 Intake Total 600 ml 120 ml Output Total 350 ml 350 ml Balance 250 ml -230 ml Intake Oral 600 ml 120 ml Output Urine Total 350 ml 350 ml # Bowel Movements 0 0 Result Diagram: 12/13/16 0621 12/13/16 0621 Imaging Last Impressions Chest X-Ray 12/12/16 0000 Signed Impressions: Service Date/Time: Monday, December 12, 2016 22:32 - CONCLUSION: Right basilar opacity is present may be due to a combination of consolidation and or pleural effusion and slight left lung base consolidation. Rey Hernandez MD Objective Remarks GENERAL: This is a well-nourished, well-developed patient, in no apparent distress. CARDIOVASCULAR: Regular rate and rhythm without murmurs, gallops, or rubs. RESPIRATORY: Clear to auscultation. Breath sounds equal bilaterally. No wheezes , rales, or rhonchi. GASTROINTESTINAL: Abdomen soft, non-tender, nondistended. Normal active bowel sounds MUSCULOSKELETAL: Extremities without clubbing, cyanosis, or edema. NEURO: Alert & Oriented x3, but confused at times. Moves all ext x4 A/P Problem List: (1) Anemia Status: Acute Plan: - comgmt with GI - Patient developed hematemesis while on psychiatry unit 12/07/16 - Patient transferred from medical psychiatry floor to general medical floor - Hemoglobin 8.3 (12/11/16), then dropped to 6.1 (12/12/16) - Patient transfused 2 units of PRBCs (12/12/16) - repeat EGD 12/14/16 - consult Palliative Consult for clarification of goals (2) HTN (hypertension) Status: Chronic Plan: - continue lisinopril, metoprolol (3) Depression Status: Acute Plan: - reconsult Psychiatry - continue cymbalta (4) Nonsustained paroxysmal supraventricular tachycardia Status: Acute Plan: - 4 beat run - asymptomatic - continue to observe Problem Qualifiers (1) Anemia: Qualified Code: D64.9 - Anemia, unspecified type (2) HTN (hypertension): Qualified Code: I10 - Essential hypertension (3) Depression: Qualified Code: F32.9 - Depression, unspecified depression type Varinder Moreno DO Dec 13, 2016 15:50
--- NOTE | 2016-12-13 23:50 | HHI.GIFU ---
Subjective Remarks Patient comfortable in bed no new complaints Objective Vitals I&O Vital Signs Date Time Temp Pulse Resp B/P Pulse Ox O2 Delivery O2 Flow Rate FiO2 12/13/16 20:47 96.5 74 16 134/77 95 12/13/16 16:00 97.6 97 20 120/66 99 12/13/16 12:00 96.8 103 20 117/69 99 12/13/16 08:04 85 12/13/16 08:00 97.7 95 18 122/59 96 12/13/16 07:30 97 2.00 97 12/13/16 05:35 99.1 90 18 115/59 95 12/13/16 02:45 99.4 89 18 111/58 96 12/13/16 02:30 99.6 91 18 121/58 96 12/13/16 02:20 99.6 91 18 121/58 96 12/13/16 00:00 98.6 79 104/62 95 12/12/16 23:51 16 I/O 12/12/16 12/12/16 12/12/16 12/13/16 12/13/16 12/13/16 07:00 15:00 23:00 07:00 15:00 23:00 Intake Total 600 ml 120 ml 900 ml Output Total 350 ml 350 ml 1000 ml Balance 250 ml -230 ml -100 ml Intake Oral 600 ml 120 ml 600 ml IV Total 300 ml Output Urine Total 350 ml 350 ml 1000 ml # Bowel Movements 0 0 0 Laboratory Laboratory Tests Test 12/13/16 06:21 White Blood Count 14.4 Red Blood Count 4.27 Hemoglobin 12.3 Hematocrit 36.5 Mean Corpuscular Volume 85.5 Mean Corpuscular Hemoglobin 28.8 Mean Corpuscular Hemoglobin 33.7 Concent Red Cell Distribution Width 14.4 Platelet Count 412 Mean Platelet Volume 7.4 Neutrophils (%) (Auto) 94.6 Lymphocytes (%) (Auto) 2.4 Monocytes (%) (Auto) 1.4 Eosinophils (%) (Auto) 1.3 Basophils (%) (Auto) 0.3 Neutrophils # (Auto) 13.6 Lymphocytes # (Auto) 0.3 Monocytes # (Auto) 0.2 Eosinophils # (Auto) 0.2 Basophils # (Auto) 0.0 CBC Comment AUTO DIFF Differential Total Cells 100 Counted Neutrophils % (Manual) 80 Band Neutrophils % 7 Lymphocytes % 5 Monocytes % 4 Eosinophils % 2 Basophils % 1 Neutrophils # (Manual) 12.7 Myelocytes 1 Differential Comment FINAL DIFF MANUAL Platelet Estimate NORMAL Platelet Morphology Comment NORMAL Tarrs Cells 1+ Sodium Level 140 Potassium Level 3.4 Chloride Level 107 Carbon Dioxide Level 23.9 Anion Gap 9 Blood Urea Nitrogen 20 Creatinine 0.68 Estimat Glomerular Filtration 84 Rate Random Glucose 97 Calcium Level 7.7 Magnesium Level 1.6 Date/Time Procedure Status Source Growth 12/12/16 23:00 Urine Culture - Preliminary Resulted Urine Catheterized Urine Gram Negative Cheko Physical Exam HEENT: normocephalic;throat is clear. NECK: Neck is supple, CHEST: Chest is clear to auscultation and percussion. CARDIAC: Regular rate and rhythm with no murmur gallop or rubs. ABDOMEN: Soft, nondistended, nontender; no hepatosplenomegaly; bowel sounds are present in all four quadrants. EXTREMITIES: No clubbing, cyanosis, or edema. SKIN: Normal; no rash; no jaundice. 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 Assessment and Plan Plan Anemia unclear source for this anemia Ulcerative esophagitis Gastric ulcers Pyloric stenosis Agree with current supportive care Monitor labs and transfuse as needed Plan repeat EGD with possible pyloric dilation tomorrow Recommend PPI Avoid NSAIDs and aspirin Ace Escalera MD Dec 13, 2016 23:50
[2016-12-14] VITALS: BP 134/76; PULSE 62; RESP 18; TEMP 98.7; O2SAT 98
[2016-12-14] MEDS ORDERED: SODIUM CHLORID 0.9% 500 ML IV PRN (02:30)
[2016-12-14] MEDS ORDERED: POVIDONE IODINE 5% (ANTISEPSIS KIT) 4 APPLICATIONS EACH NARE PRN (02:30)
[2016-12-14] MEDS ORDERED: CHLORHEXIDINE GLUCONATE 2 % 1 PACK (2 CLOTHS) TOPICAL PRN (02:30)
[2016-12-14] MEDS ORDERED: LACTATED RINGER'S 1000 ML IV PRN (02:30)
[2016-12-14] MEDS: PANTOPRAZOLE SODIUM 40 MG VIAL IV PUSH SCH ×2 (05:24→18:18)
[2016-12-14 05:59] LABS: AUTOMATED NEUTROPHIL # 7.1 TH/MM3 (1.8-7.7); BASOPHIL % 0.5 % (0.0-2.0); EOSINOPHIL # 0.5 TH/MM3 (0-0.4); EOSINOPHIL % 5.2 % (0.0-4.0); HEMATOCRIT 36.8 % (35.0-46.0); LYMPH % 10.2 % (9.0-44.0); MEAN CELL VOLUME 85.9 FL (80.0-100.0); MEAN CORPUSCULAR HEMOGLOBIN 28.3 PG (27.0-34.0); MEAN CORPUSCULAR HGB CONC 32.9 % (32.0-36.0); MONO % 9.2 % (0.0-8.0); NEUT % 74.9 % (16.0-70.0); PLATELET COUNT 378 TH/MM3 (150-450); RED BLOOD COUNT 4.28 MIL/MM3 (4.00-5.30); RED CELL DISTRIBUTION WIDTH 14.5 % (11.6-17.2); WHITE BLOOD COUNT 9.5 TH/MM3 (4.0-11.0)
[2016-12-14 06:06] LABS: HEMO FLAGS AUTO DIFF
[2016-12-14 06:18] LABS: BICARBONATE 21.7 MEQ/L (21.0-32.0); MAGNESIUM 1.6 MG/DL (1.5-2.5); POTASSIUM 3.4 MEQ/L (3.5-5.1)
[2016-12-14 07:08] LABS: SCAN/DIFF AUTO DIFF CONFIRMED
[2016-12-14 08:00] VITALS: BP 140/81; PULSE 78; RESP 18; TEMP 98.3; O2SAT 98
[2016-12-14] MEDS: METOPROLOL TARTRATE 25 MG TAB PO SCH ×2 (08:48→20:41)
[2016-12-14] MEDS: LISINOPRIL 20 MG TAB PO SCH ×2 (08:48→20:41)
[2016-12-14] MEDS: DULoxetine HCl DR 30 MG CAP PO SCH (08:48)
--- NOTE | 2016-12-14 11:16 | HHI.PR ---
Subjective Remarks says she was feeling a little sob no cough. no fever/chill. no wheeze Objective Vitals nad heart reg lung diminished air entry rima abd s/nt ext no edema ann Vital Signs Date Time Temp Pulse Resp B/P Pulse Ox O2 Delivery O2 Flow Rate FiO2 12/14/16 08:45 Nasal Cannula 2.00 12/14/16 08:00 98.3 78 18 140/81 98 12/14/16 00:00 98.7 62 18 134/76 98 12/13/16 21:00 114 12/13/16 21:00 Nasal Cannula 2.00 12/13/16 20:47 96.5 74 16 134/77 95 12/13/16 16:00 97.6 97 20 120/66 99 12/13/16 12:00 96.8 103 20 117/69 99 12/13/16 12/13/16 12/14/16 15:00 23:00 07:00 Intake Total 900 ml 240 ml 120 ml Output Total 1000 ml 350 ml 350 ml Balance -100 ml -110 ml -230 ml Intake Oral 600 ml 240 ml 120 ml IV Total 300 ml Output Urine Total 1000 ml 350 ml 350 ml # Bowel Movements 0 0 0 Result Diagram: 12/14/16 0505 12/14/16 0505 Imaging Last Impressions Chest X-Ray 12/12/16 0000 Signed Impressions: Service Date/Time: Monday, December 12, 2016 22:32 - CONCLUSION: Right basilar opacity is present may be due to a combination of consolidation and or pleural effusion and slight left lung base consolidation. Rey Hernandez MD A/P Problem List: (1) Anemia Status: Acute Plan: -Pt was initially admitted to ICU after overdose on narcotic/benzos. intubated. Then transferred to psych unit. - Patient developed hematemesis and blood loss anemia while on psychiatry unit 12/07/16 - Patient transferred from medical psychiatry floor to general medical floor - Hemoglobin 8.3 (12/11/16), then dropped to 6.1 (12/12/16) - Patient transfused 2 units of PRBCs (12/12/16) and now hgb recovered more than would be expected. - repeat EGD 12/14/16 to reevaluated severe esophagitis, gastric ulcers and pyloric stenosis found on 12/10 - resume diet when ok with GI -PT eval -PPI - f/u urine cx. initiate abx for uti. (2) HTN (hypertension) Status: Chronic Plan: - continue lisinopril, metoprolol (3) Depression Status: Acute Plan: - reconsult Psychiatry - continue cymbalta (4) Nonsustained paroxysmal supraventricular tachycardia Status: Acute Plan: - 4 beat run - asymptomatic - continue to observe Problem Qualifiers (1) Anemia: Qualified Code: D64.9 - Anemia, unspecified type (2) HTN (hypertension): Qualified Code: I10 - Essential hypertension (3) Depression: Qualified Code: F32.9 - Depression, unspecified depression type Stevenson Cervantes MD December 14, 2016 11:16
--- NOTE | 2016-12-14 11:41 | RADRPT ---
EXAM DATE/TIME: 12/14/2016 11:19 [facility] COMPARISON: CHEST SINGLE AP, December 12, 2016, 22:32. INDICATIONS : Short of breath. MEDICAL HISTORY : Chronic obstructive pulmonary disease. SURGICAL HISTORY : None. ENCOUNTER: Initial ACUITY: 1 day PAIN SCORE: 0/10 LOCATION: Bilateral chest FINDINGS: A single view of the chest demonstrates right basilar pleural-parenchymal density. Prominence of the right hilum. Left lung is relatively clear. Osseous structures are intact. CONCLUSION: 1. Right basilar pleural-parenchymal density likely atelectasis and pleural effusion. 2. Prominence of the right hilum. CT chest recommended for further characterization. Sebastien Levine MD on December 14, 2016 at 11:37 Board Certified Radiologist. This report was verified electronically.
[2016-12-14 12:00] VITALS: BP 134/80; PULSE 72; RESP 16; TEMP 98.2; O2SAT 98
[2016-12-14] MEDS: cefTRIAXone INJ 1,000 MG in SODIUM CHLORIDE 0.9% INJ 100 ML IV SCH (12:09)
--- NOTE | 2016-12-14 12:31 | PD.CONS ---
Consult Service Palliative Care Consult Requested By Dr. Moreno . Primary Care Physician Daniel Soto MD . Reason for Consultation a. To assist with evaluation and management of symptoms including: Pain, nausea, vomiting, dyspnea b. To assist medical decision maker(s) with: better understanding of current medical conditions; weighing benefits/burdens of medical treatment options; making medical treatment decisions. . HPI History of Present Illness This is a 76 y/o female with a history of hypertension, diverticulosis, esophagitis, anemia, duodenal AVMs and GERD, living with her daughter and grandson, who was found to be progressively more lethargic through the day, then developed AMS and EVAC services were requested. Per ED notes, EVAC elicited a history of an intentional drug overdose 11/30 after taking excessive Lortab and Restoril. She was prescribed these medications by her PCP, who had seen her recently and was attempting a weaning protocol, but she felt depressed and so took an overdose. In the ED, she was given Narcan 2 mg IV in the ED without response. She was intubated in the ER for airway protection and transferred to the care of the detective captain service in ICU. Her presenting labs showed an elevated WBC count of 15.1, Hgb 9.0, Hct 28.4, K+ 2.6, urine toxicology positive for opiates and benzodiazepines. CXR showed Left base consolidation.She was treated empirically with vancomycin and zosyn and campos cultures obtained, potassium repleted. Cultures showed E.Coli in the urine and Cornyebacerium Not Jk in the blood. She was stabilized and extubated 12/02 and subsequently transferred to psychiatry due to her overdose for further evaluation and management of her depression. While she was being stabilized in the psychiatric unit, on 12/07, she developed hematemesis and was transferred to the medical psychiatry unit, where she was evaluated by Dr. Escalera and underwent EGD showing pyloric stenosis, gastric ulcers, ulcerative esophagitis and retained food in stomach. On 12/12 her hemoglobin was found to be 6.1 and transfusion was indicated, initiating a transfer back to [facility] for transfusion and further management. She was transfused and today has a stable hemoglobin of 12.1/hct 36.8. . Function/Cognitive Trajectory She has suffered a fall with continued pelvic and tailbone pain and requires a walker. She has difficulty leaving the home and has lost interest in many of her previously enjoyed activities, such as dancing. 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) - 02/2015 Past Medical History Allergic rhinitis Anemia Arthritis Atherosclerosis of aorta Judge's esophagus Chronic obstructive pulmonary disease Chronic kidney disease Close fracture of the right inferior and superior pubic ramus Diverticulosis Duodenal arteriovenous malformation Dysphasia Gastroparesis GERD Hiatal hernia Hypertension Rectal bowel syndrome Liver pain History of right renal mass Vitamin D insufficiency Vitiligo Past Surgical History Left arthroscopic knee surgery Breast biopsy Capsule endoscopy Laparoscopic cholecystectomy EGD/colonoscopy Conrado fundoplication Laminectomy of lumbar spine Laryngoscopy Left breast lumpectomy Rotator cuff surgery Reported Medications Reported Meds & Active Scripts Active Lisinopril 20 Mg Tab 20 Mg PO BID Cymbalta DR (Duloxetine HCl) 20 Mg Capdr 20 Mg PO DAILY Reported Multi Vitamin (Multiple Vitamin) 1 Tab Tab 1 Tab PO DAILY Aspirin 81 Mg Chew 81 Mg CHEW DAILY Iron (Ferrous Fumarate) 18 Mg Tab 18 Mg PO BID Metoprolol Tartrate 25 Mg Tab 25 Mg PO BID Omeprazole 20 Mg Tab 20 Mg PO DAILY B Complex Plus (B-Complex W/ Folic Acid) 1 Tab 1 Tab PO Current Medications Medications (Trade) Dose Ordered Sig/Ghazala Route Start Time Stop Time Status Last Admin (Prinivil) 20 mg BID PO 12/12/16 21:00 12/14/16 08:48 (Lopressor) 25 mg BID PO 12/12/16 21:00 12/14/16 08:48 (Protonix Inj) 40 mg Q12H IV PUSH 12/12/16 16:00 12/14/16 05:24 Duloxetine HCl 30 mg 30 mg DAILY PO 12/14/16 09:00 12/14/16 08:48 Lactated Ringer's 1,000 ml @ 30 mls/hr Q24H PRN IV 12/14/16 02:30 12/17/16 02:29 Sodium Chloride 500 ml @ 30 mls/hr [id number] PRN IV 12/14/16 02:30 12/17/16 02:29 (Rocephin Inj/NS Inj) 100 ml @ 200 mls/hr Q24H IV 12/14/16 12:00 (KCl) 20 meq ONCE ONCE PO 12/14/16 21:00 12/14/16 21:01 Family History Mother had Parkinson's ds, CVA. Father with emphysema twice, has 1 son, 3 daughters. Substance Use Tobacco: smoked 1ppd X 47 yrs, quit 1998 Alcohol: rare Prescription med abuse: overdose of Lortab and restoril on admission 11/30/16 Illicits: None Psychosocial History Lives with her 37 y/o grandson, has 1 son, 3 daughters. She has one brother and one sister. 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 Her first marriage ended after 12 years in divorce. There were 3 children from that marriage. Her second marriage ended in the of her . There was one child from this marriage. Her father shot himself due to his medical issues. Living Will: Never completed Health Care Surrogate: Never completed Durable Power of Rfid Specialist: Never completed Physical Exam Vital Signs Date Time Temp Pulse Resp B/P Pulse Ox O2 Delivery O2 Flow Rate FiO2 12/14/16 08:45 Nasal Cannula 2.00 12/14/16 08:00 98.3 78 18 140/81 98 12/14/16 00:00 98.7 62 18 134/76 98 12/13/16 21:00 114 12/13/16 21:00 Nasal Cannula 2.00 12/13/16 20:47 96.5 74 16 134/77 95 12/13/16 16:00 97.6 97 20 120/66 99 12/13/16 12/14/16 19:00 07:00 Intake Total 900 ml 360 ml Output Total 1000 ml 700 ml Balance -100 ml -340 ml Intake Oral 600 ml 360 ml IV Total 300 ml Output Urine Total 1000 ml 700 ml # Bowel Movements 0 0 Exam CONSTITUTIONAL/GENERAL: This is an adequately nourished patient, in no apparent distress. TUBES/LINES/DRAINS: SKIN: No jaundice, rashes, or lesions. Ecchymoses on upper extremities. No wounds seen anteriorly. Skin temperature appropriate. Not diaphoretic. HEAD: Atraumatic. Normocephalic. EYES: Pupils equal and round and reactive. Extraocular motions intact. No scleral icterus. No injection or drainage. Fundi not examined. ENT: Hearing grossly normal. Nose without bleeding or purulent drainage. Throat without visible erythema, exudates, masses, or lesions. NECK: Trachea midline. Supple, nontender. No palpable thyroid enlargement or nodularity. CARDIOVASCULAR: Regular rate and rhythm without murmurs, gallops, or rubs. No JVD. Peripheral pulses symmetric. RESPIRATORY/CHEST: Symmetric, unlabored respirations. Clear to auscultation. Breath sounds equal bilaterally. No wheezes, rales, or rhonchi. GASTROINTESTINAL: Abdomen soft, non-tender, nondistended. No hepato-splenomegaly , or palpable masses. No guarding. Bowel sounds present. GENITOURINARY: Without palpable bladder distension. Araiza catheter in place. MUSCULOSKELETAL: Extremities without clubbing, cyanosis, or edema. No joint tenderness or effusion noted. No calf tenderness. No mottling or clubbing. LYMPHATICS: No palpable cervical or supraclavicular adenopathy. NEUROLOGICAL: Awake and alert. Motor and sensory grossly within normal limits. Follows commands. Cognitively sharp. Moves all extremities. PSYCHIATRIC: No obvious anxiety/depression. no apparent hallucinations or other psychotic thought process. Diagnostic Tests Laboratory Laboratory Tests Test 12/12/16 12/12/16 12/13/16 12/14/16 18:16 23:00 06:21 05:05 Blood Type O POSITIVE Antibody Screen NEGATIVE Crossmatch Leukocyte-Reduced Red Blood Cells Blood Bank Comment Urine Color YELLOW (YELLW/STRAW) Urine Turbidity HAZY (CLEAR) Urine pH 6.0 (5.0-8.5) Urine Specific [place] 1.017 (1.002-1.035) Urine Protein TRACE mg/dL (NEG-TRACE) Urine Glucose (UA) NEG mg/dL (NEG) Urine Ketones NEG mg/dL (NEG) Urine Occult Blood TRACE (NEG) Urine Nitrite NEG (NEG) Urine Bilirubin NEG (NEG) Urine Urobilinogen LESS THAN 2.0 MG/DL (LESS THAN 2.0) Urine Leukocyte Esterase LARGE (NEG) Urine RBC 3 /hpf (0-3) Urine WBC 153 /hpf (0-5) Urine Renal Epithelial Cells <1 /hpf (NONE) Urine Bacteria OCC /hpf (NONE) Urine Hyaline Casts 2 /lpf (RARE) Microscopic Urinalysis Comment CATH-CULTURE IND White Blood Count 14.4 TH/MM3 9.5 TH/MM3 (4.0-11.0) (4.0-11.0) Red Blood Count 4.27 MIL/MM3 4.28 MIL/MM3 (4.00-5.30) (4.00-5.30) Hemoglobin 12.3 GM/DL 12.1 GM/DL (11.6-15.3) (11.6-15.3) Hematocrit 36.5 % 36.8 % (35.0-46.0) (35.0-46.0) Mean Corpuscular Volume 85.5 FL 85.9 FL (80.0-100.0) (80.0-100.0) Mean Corpuscular Hemoglobin 28.8 PG 28.3 PG (27.0-34.0) (27.0-34.0) Mean Corpuscular Hemoglobin 33.7 % 32.9 % Concent (32.0-36.0) (32.0-36.0) Red Cell Distribution Width 14.4 % 14.5 % (11.6-17.2) (11.6-17.2) Platelet Count 412 TH/MM3 378 TH/MM3 (150-450) (150-450) Mean Platelet Volume 7.4 FL 7.7 FL (7.0-11.0) (7.0-11.0) Neutrophils (%) (Auto) 94.6 % 74.9 % (16.0-70.0) (16.0-70.0) Lymphocytes (%) (Auto) 2.4 % 10.2 % (9.0-44.0) (9.0-44.0) Monocytes (%) (Auto) 1.4 % (0.0-8.0) 9.2 % (0.0-8.0) Eosinophils (%) (Auto) 1.3 % (0.0-4.0) 5.2 % (0.0-4.0) Basophils (%) (Auto) 0.3 % (0.0-2.0) 0.5 % (0.0-2.0) Neutrophils # (Auto) 13.6 TH/MM3 7.1 TH/MM3 (1.8-7.7) (1.8-7.7) Lymphocytes # (Auto) 0.3 TH/MM3 1.0 TH/MM3 (1.0-4.8) (1.0-4.8) Monocytes # (Auto) 0.2 TH/MM3 0.9 TH/MM3 (0-0.9) (0-0.9) Eosinophils # (Auto) 0.2 TH/MM3 0.5 TH/MM3 (0-0.4) (0-0.4) Basophils # (Auto) 0.0 TH/MM3 0.0 TH/MM3 (0-0.2) (0-0.2) CBC Comment AUTO DIFF AUTO DIFF Differential Total Cells 100 Counted Neutrophils % (Manual) 80 % (16-70) Band Neutrophils % 7 % (0-6) Lymphocytes % 5 % (9-44) Monocytes % 4 % (0-8) Eosinophils % 2 % (0-4) Basophils % 1 % (0-2) Neutrophils # (Manual) 12.7 TH/MM3 (1.8-7.7) Myelocytes 1 % (0-0) Differential Comment FINAL DIFF AUTO DIFF MANUAL CONFIRMED Platelet Estimate NORMAL (NORMAL) Platelet Morphology Comment NORMAL (NORMAL) Sea Cells 1+ (NORMAL) Sodium Level 140 MEQ/L 139 MEQ/L (136-145) (136-145) Potassium Level 3.4 MEQ/L 3.4 MEQ/L (3.5-5.1) (3.5-5.1) Chloride Level 107 MEQ/L 106 MEQ/L (98-107) (98-107) Carbon Dioxide Level 23.9 MEQ/L 21.7 MEQ/L (21.0-32.0) (21.0-32.0) Anion Gap 9 MEQ/L (5-15) 11 MEQ/L (5-15) Blood Urea Nitrogen 20 MG/DL (7-18) 15 MG/DL (7-18) Creatinine 0.68 MG/DL 0.65 MG/DL (0.50-1.00) (0.50-1.00) Estimat Glomerular Filtration 84 ML/MIN (>89) 88 ML/MIN (>89) Rate Random Glucose 97 MG/DL 101 MG/DL (74-106) (74-106) Calcium Level 7.7 MG/DL 7.6 MG/DL (8.5-10.1) (8.5-10.1) Magnesium Level 1.6 MG/DL 1.6 MG/DL (1.5-2.5) (1.5-2.5) Result Diagram: 12/14/16 0505 12/14/16 0505 Microbiology Microbiology Date/Time Procedure Status Source Growth 12/12/16 23:00 Urine Culture - Final Complete Urine Catheterized Urine Escherichia Coli Imaging Last Impressions Chest X-Ray 12/14/16 0000 Signed Impressions: Service Date/Time: Wednesday, December 14, 2016 11:19 - CONCLUSION: 1. Right basilar pleural-parenchymal density likely atelectasis and pleural effusion. 2. Prominence of the right hilum. CT chest recommended for further characterization. Sebastien Levine MD Procedures Intubation 11/30 Extubation 12/02 Panendoscopy with Bx and pyloric dilation 12/14 Patient/Family Conference Issues Discussed: * Palliative care role, purpose, approach * Additional medical, psychosocial, and spiritual history * Patients general health, functional status, and cognitive changes in the months leading up to the current hospitalization * Patient/family understanding of the current medical problems * Patient/family understanding of prognosis * Patients goals of care as best understood from advance directives and/or conversations and/or values * Current medical treatment options and benefits/burdens of those options * Likely scenarios comparing ongoing aggressive care with a transition to comfort measures only * Questions answered to the best of my ability * Palliative care contact information provided Assessment and Plan Disease Oriented Problem List: (1) UTI (urinary tract infection) (2) Generalized weakness (3) HTN (hypertension) (4) Depression (5) Anemia (6) Hematemesis (7) OD (overdose of drug) (8) GERD (gastroesophageal reflux disease) (9) Gastroparesis (10) COPD (chronic obstructive pulmonary disease) Symptom Scale: (1) Dizziness (2) Nausea & vomiting (3) Constipation (4) Depression Pertinent Non-Medical Issues Psychosocial: Lives with her 37 y/o grandson, has 1 son, 3 daughters. She has one brother and one sister. 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 Her first marriage ended after 12 years in divorce. There were 3 children from that marriage. Her second marriage ended in the of her . There was one child from this marriage. Her father shot himself due to his medical issues. Spiritual: Legal: Ethical issues impacting care: Code Status: Full Code (by default) Plan * Legal decision maker: * Goals: MULTIPLE ATTEMPTS TO SEE PATIENT, BUT OFF THE UNIT FOR PROCEDURES. WILL SEE IN AM * Code Status * Symptoms Thank you for the opportunity to participate in the care of Ms. Shafer. Attestation To help prompt me to consider important information that might be impacting today's encounter and assessment, information from prior notes written by myself or my colleagues may have been "brought forward" into today's note. My signature on this note, however, is an attestation that I personally performed the exam, history, and/or decision-making noted today, and, unless otherwise indicated, the interactions with patient, family, and staff as well as the review of records all occurred today. I also attest that the listed assessment and stated plan reflect my best clinical judgment today based on the combination of historical information, prior notes, and today's exam/ interactions. When time spent is documented, it refers only to time spent today by the signer, or if indicated, combined time spent today by collaborating physician/nurse practitioner. Alyson Ceballos December 14, 2016 12:31 pm
[2016-12-14] MEDS ORDERED: PROPOFOL 200 MG/20 ML AMP IV ONE (15:07)
--- NOTE | 2016-12-14 15:22 | GIPROC ---
[facility] [address] [facility]. [facility], [address] EGD PROCEDURE REPORT EXAM DATE: 12/14/2016 PATIENT NAME: Viktoriya Shafer MR #: [id number] BIRTHDATE: 1940 ATTENDING: Urmila Foss MD ORDER #: [id number] SPAGHETTI PRESS HELPER: Adri Seay and Ryan Talbert STATUS: inpatient INDICATIONS: The patient is a 76 yr old female here for an EGD due to iron deficiency anemia, acute post hemorrhagic anemia, and dysphagia PROCEDURE PERFORMED: EGD w/ biopsy MEDICATIONS: None and Per Anesthesia. TOPICAL ANESTHETIC: CONSENT: The patient understands the risks and benefits of the procedure and understands that these risks include, but are not limited to: sedation, allergic reaction, infection, perforation and/or bleeding. Alternative means of evaluation and treatment include, among others: physical exam, x-rays, and/or surgical intervention. The patient elects to proceed with this endoscopic procedure. medical equipment was checked for proper function. Hand hygiene and appropriate measures for infection prevention was taken. After the risks, benefits and alternatives of the procedure were thoroughly explained, Informed consent was verified, confirmed and timeout was successfully executed by the treatment team. The patient was anesthetized with topical anesthesia and the Pentax EG-[id number] endoscope was introduced through the mouth and advanced to the pylorus. Retroflexed views revealed no abnormalities The gastroscope was then slowly withdrawn and removed. ESOPHAGUS: There was LA Class C esophagitis noted. A biopsy was performed using cold forceps. Sample sent for histology. 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 Not dilated due to active ulceration in this area and recent bleeding. STOMACH: Two non-bleeding, shallow and clean-based ulcers ranging between 3-7mm in size with surrounding edema were found in the prepyloric region of the stomach. Biopsies were taken at edge of the ulcers. ADVERSE EVENTS: There were no complications. IMPRESSIONS: 1. There was LA Class C esophagitis noted; biopsy was performed 2. 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 Not dilated due to active ulceration in this area and recent bleeding 3. Two ulcers ranging between 3-7mm in size were found in the prepyloric region of the stomach; biopsies were taken 4. Retroflexed views revealed no abnormalities RECOMMENDATIONS: 1. Await biopsy results. Biopsy results will not be ready for 7-10 days. If you don't hear from us in two weeks, call our office for biopsy results. 2. Anti-reflux regimen 3. Continue PPI 4. Avoid NSAIDS 5. Carafate 1 gm po tid ac PATIENT CONDITION: stable DISPOSITION: Inpatient REPEAT EXAM: Return 2 weeks EGD with dilatation Urmila Foss MD eSigned: Urmila Foss MD 12/14/2016 3:22 PM cc: PATIENT NAME: Viktoriya Shafer MR#: [id number]
[2016-12-14 18:00] VITALS: BP 136/84; PULSE 76; RESP 14; TEMP 98.4; O2SAT 94
--- NOTE | 2016-12-14 18:01 | RADRPT ---
EXAM DATE/TIME: 12/14/2016 16:50 [place] COMPARISON: CHEST SINGLE AP, December 14, 2016, 11:19. INDICATIONS : Evaluate for infiltrates. RADIATION DOSE: 3.95 CTDIvol (mGy) MEDICAL HISTORY : Cardiovascular disease. Hypertension. SURGICAL HISTORY : Cholecystectomy. Fusion, lumbar. ENCOUNTER: Initial ACUITY: 1 day PAIN SCALE: 0/10 LOCATION: chest TECHNIQUE: Volumetric scanning of the chest was performed. Using automated exposure control and adjustment of t he mA and/or kV according to patient size, radiation dose was kept as low as reasonably achievable to obtain optimal diagnostic quality images. FINDINGS: LUNGS: There is patchy mild infiltrate in the upper lung de leon bilaterally. There is moderate consolidative change in posterior medial right lung base. Mild compressive atelectasis in the posterior left base. PLEURAE: Bilateral pleural effusions, moderate on the right, small on the left. MEDIASTINUM: The heart and great vessels demonstrate no acute abnormality. There is no mediastinal or hilar lymph adenopathy. AXILLAE: Within normal limits. No lymphadenopathy. MUSCULOSKELETAL: Within normal limits for patient age. MISCELLANEOUS: There is ascites in the visualized upper abdomen, best seen adjacent to the liver. There has been pre vious gastric surgery or GE junction surgery of some type. CONCLUSION: Bilateral pleural effusions and consolidative changes most significantly in the posterior right lung base. See above discussion. Dima Tarango MD on December 14, 2016 at 17:55 Board Certified Radiologist. This report was verified electronically.
[2016-12-14 20:00] VITALS: BP 126/59; PULSE 88; RESP 20; TEMP 97.5; O2SAT 98
[2016-12-14] MEDS ORDERED: POTASSIUM CHLORIDE 20 MEQ CONTROLLED RELEASE TAB PO ONE (21:00)
[2016-12-15] VITALS: BP 147/70; PULSE 71; RESP 20; TEMP 97.3; O2SAT 98
[2016-12-15] MEDS: PANTOPRAZOLE SODIUM 40 MG VIAL IV PUSH SCH ×2 (04:41→16:53)
[2016-12-15 05:00] VITALS: BP 174/84; PULSE 81; RESP 18; TEMP 98; O2SAT 100
[2016-12-15 06:04] LABS: AUTOMATED NEUTROPHIL # 7.8 TH/MM3 (1.8-7.7); BASOPHIL # 0.1 TH/MM3 (0-0.2); BASOPHIL % 1.1 % (0.0-2.0); EOSINOPHIL # 0.3 TH/MM3 (0-0.4); HEMATOCRIT 38.7 % (35.0-46.0); LYMPH % 15.4 % (9.0-44.0); LYMPHOCYTE # 1.8 TH/MM3 (1.0-4.8); MEAN CELL VOLUME 87.5 FL (80.0-100.0); MEAN CORPUSCULAR HEMOGLOBIN 28.5 PG (27.0-34.0); MEAN CORPUSCULAR HGB CONC 32.6 % (32.0-36.0); MONO % 12.7 % (0.0-8.0); NEUT % 67.8 % (16.0-70.0); PLATELET COUNT 367 TH/MM3 (150-450); RED BLOOD COUNT 4.42 MIL/MM3 (4.00-5.30); RED CELL DISTRIBUTION WIDTH 14.8 % (11.6-17.2); WHITE BLOOD COUNT 11.4 TH/MM3 (4.0-11.0)
[2016-12-15 06:27] LABS: HEMO FLAGS AUTO DIFF
[2016-12-15 06:29] LABS: BICARBONATE 21.4 MEQ/L (21.0-32.0); POTASSIUM 3.4 MEQ/L (3.5-5.1)
[2016-12-15] MEDS: LISINOPRIL 20 MG TAB PO SCH ×2 (07:44→20:42)
[2016-12-15] MEDS: METOPROLOL TARTRATE 25 MG TAB PO SCH ×2 (07:45→20:42)
[2016-12-15] MEDS: DULoxetine HCl DR 30 MG CAP PO SCH (07:45)
[2016-12-15 08:00] VITALS: BP 161/74; PULSE 72; RESP 16; TEMP 98.5; O2SAT 97
[2016-12-15 08:44] LABS: BANDS 2 % (0-6); BASOPHILS 3 % (0-2); EOSINOPHILS 3 % (0-4); METAMYELOCYTES 1 % (0-1); MYELOCYTES 1 % (0-0); NEUTROPHIL # MANUAL DIFF 8.3 TH/MM3 (1.8-7.7); POLYS (SEG NEUTROPHILS) 69 % (16-70); WBC DIFF SAMPLE 100
[2016-12-15 08:46] LABS: PLATELET ESTIMATE SMEAR NORMAL (NORMAL); PLATELET MORPHOLOGY NORMAL (NORMAL); SCAN/DIFF FINAL DIFF MANUAL
[2016-12-15] MEDS: cefTRIAXone INJ 1,000 MG in SODIUM CHLORIDE 0.9% INJ 100 ML IV SCH (11:09)
--- NOTE | 2016-12-15 11:54 | HHI.PR ---
Subjective Remarks Pt states that she just doesn't feel well today She complains of epigastric discomfort. She is tolerating full liquid diet. Objective Vitals Vital Signs Date Time Temp Pulse Resp B/P Pulse Ox O2 Delivery O2 Flow Rate FiO2 12/15/16 08:00 Nasal Cannula 2.00 12/15/16 08:00 98.5 72 16 161/74 97 12/15/16 05:00 98.0 81 18 174/84 100 12/15/16 00:00 97.3 71 20 147/70 98 12/14/16 20:40 Nasal Cannula 2.00 12/14/16 20:00 97.5 88 20 126/59 98 12/14/16 18:00 98.4 76 14 136/84 94 12/14/16 15:36 66 18 139/69 98 12/14/16 15:26 65 18 135/61 98 12/14/16 15:16 98.6 68 16 131/70 97 12/14/16 12:00 98.2 72 16 134/80 98 12/14/16 12/14/16 12/15/16 15:00 23:00 07:00 Intake Total 99 ml 340 ml 120 ml Output Total 500 ml 100 ml 250 ml Balance -401 ml 240 ml -130 ml Intake Oral 0 ml 240 ml 120 ml IV Total 99 ml 0 ml 0 ml Other 100 ml Output Urine Total 500 ml 100 ml 250 ml # Bowel Movements 0 0 0 Result Diagram: 12/15/16 0512 12/15/16 0512 Other Results Laboratory Tests Test 12/14/16 12/15/16 05:05 05:12 White Blood Count 9.5 TH/MM3 11.4 TH/MM3 Red Blood Count 4.28 MIL/MM3 4.42 MIL/MM3 Hemoglobin 12.1 GM/DL 12.6 GM/DL Hematocrit 36.8 % 38.7 % Mean Corpuscular Volume 85.9 FL 87.5 FL Mean Corpuscular Hemoglobin 28.3 PG 28.5 PG Mean Corpuscular Hemoglobin 32.9 % 32.6 % Concent Red Cell Distribution Width 14.5 % 14.8 % Platelet Count 378 TH/MM3 367 TH/MM3 Mean Platelet Volume 7.7 FL 7.6 FL Neutrophils (%) (Auto) 74.9 % 67.8 % Lymphocytes (%) (Auto) 10.2 % 15.4 % Monocytes (%) (Auto) 9.2 % 12.7 % Eosinophils (%) (Auto) 5.2 % 3.0 % Basophils (%) (Auto) 0.5 % 1.1 % Neutrophils # (Auto) 7.1 TH/MM3 7.8 TH/MM3 Lymphocytes # (Auto) 1.0 TH/MM3 1.8 TH/MM3 Monocytes # (Auto) 0.9 TH/MM3 1.4 TH/MM3 Eosinophils # (Auto) 0.5 TH/MM3 0.3 TH/MM3 Basophils # (Auto) 0.0 TH/MM3 0.1 TH/MM3 CBC Comment AUTO DIFF AUTO DIFF Differential Comment AUTO DIFF FINAL DIFF CONFIRMED MANUAL Sodium Level 139 MEQ/L 136 MEQ/L Potassium Level 3.4 MEQ/L 3.4 MEQ/L Chloride Level 106 MEQ/L 106 MEQ/L Carbon Dioxide Level 21.7 MEQ/L 21.4 MEQ/L Anion Gap 11 MEQ/L 9 MEQ/L Blood Urea Nitrogen 15 MG/DL 13 MG/DL Creatinine 0.65 MG/DL 0.55 MG/DL Estimat Glomerular Filtration 88 ML/MIN 107 ML/MIN Rate Random Glucose 101 MG/DL 90 MG/DL Calcium Level 7.6 MG/DL 7.4 MG/DL Magnesium Level 1.6 MG/DL Differential Total Cells 100 Counted Neutrophils % (Manual) 69 % Band Neutrophils % 2 % Lymphocytes % 9 % Monocytes % 12 % Eosinophils % 3 % Basophils % 3 % Neutrophils # (Manual) 8.3 TH/MM3 Metamyelocytes 1 % Myelocytes 1 % Platelet Estimate NORMAL Platelet Morphology Comment NORMAL Protein Corrected Calcium 9.0 MG/DL Total Protein 4.3 GM/DL Imaging Last Impressions Chest X-Ray 12/14/16 0000 Signed Impressions: Service Date/Time: Wednesday, December 14, 2016 11:19 - CONCLUSION: 1. Right basilar pleural-parenchymal density likely atelectasis and pleural effusion. 2. Prominence of the right hilum. CT chest recommended for further characterization. Sebastien Levine MD Chest CT 12/14/16 0000 Signed Impressions: Service Date/Time: Wednesday, December 14, 2016 16:50 - CONCLUSION: Bilateral pleural effusions and consolidative changes most significantly in the posterior right lung base. See above discussion. Dima Tarango MD Last Impressions Chest X-Ray 12/12/16 0000 Signed Impressions: Service Date/Time: Monday, December 12, 2016 22:32 - CONCLUSION: Right basilar opacity is present may be due to a combination of consolidation and or pleural effusion and slight left lung base consolidation. Rey Hernandez MD Objective Remarks General: NAD, Awake, alert Chest: CTA Cardiac: Regular Abd: +BS, soft ND mild epigastric discomfort with palpation Ext: No edema Ann cath in place A/P Problem List: (1) Anemia Status: Acute Plan: -Pt was initially admitted to ICU after overdose on narcotic/benzos. intubated. Then transferred to psych unit. - Patient developed hematemesis and blood loss anemia while on psychiatry unit on 12/07/16 - Pt underwent evaluation with EGD on 12/10/16 --> severe ulcerative esophagitis in the distal esophagus, the stomach was full of old with food and the evaluation was incomplete there were superficial ulcers in the antrum and the pylorus appeared to be severely stenosed biopsies were taken from the antrum and then using a balloon dilator sizes 6,7 and 8 then followed by 03/24/10 postdilatation view was satisfactory I still was not able to pass the scope but no tear noted. - Patient transferred from medical psychiatry floor to general medical floor - Hemoglobin 8.3 (12/11/16), then dropped to 6.1 (12/12/16) - Patient transfused 2 units of PRBCs (12/12/16) and now hgb recovered more than would be expected. - Repeat EGD on 12/14/16 --> LA Class C esophagitis. 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 Not dilated due to active ulceration in this area and recent bleeding. Two ulcers ranging between 3-7mm in size were found in the prepyloric region of the stomach - Pathology pending - Pt tolerating full liquid diet, advance per GI - PT eval - PPI - Carafate liquid 1 gram TIDAC (2) UTI (urinary tract infection) Status: Acute Plan: - Pt noted to have a UTI with urine cx growing E. coli, pansensitive. - Pt currently on Rocephin - Will convert to Levaquin - Remove Ann in AM (3) HTN (hypertension) Status: Chronic Plan: - continue lisinopril, metoprolol - Clonidine PRN (4) Depression Status: Acute Plan: - reconsult Psychiatry - continue cymbalta (5) Nonsustained paroxysmal supraventricular tachycardia Status: Acute Plan: - 4 beat run - asymptomatic - continue to observe Assessment and Plan Patient examined. Assessment and plan formulated with Leidy See PA-C. I agree with the above. esophagitis. gastric ulcers and pyloric stenosis. right lung possible pna. uti with ecoli generally weak. depressed. d/c ann in AM. convert to po abx. egd in 2 weeks withdilation liquid diet. d/c to snf in 1-2 days. Problem Qualifiers (1) Anemia: Qualified Code: D64.9 - Anemia, unspecified type (2) HTN (hypertension): Qualified Code: I10 - Essential hypertension (3) Depression: Qualified Code: F32.9 - Depression, unspecified depression type Leidy See December 15, 2016 11:54 Stevenson Cervantes MD December 15, 2016 12:44
[2016-12-15 12:00] VITALS: BP 124/68; PULSE 80; RESP 17; TEMP 96.3; O2SAT 96
--- NOTE | 2016-12-15 12:11 | PD.CONS ---
Consult Service Palliative Care Consult Requested By Dr. Moreno . Primary Care Physician Daniel Soto MD . Reason for Consultation a. To assist with evaluation and management of symptoms including: Pain, nausea, vomiting, dyspnea b. To assist medical decision maker(s) with: better understanding of current medical conditions; weighing benefits/burdens of medical treatment options; making medical treatment decisions. . (LinAlysongracia MOTLEY) HPI History of Present Illness This is a 76 y/o female with a history of hypertension, diverticulosis, esophagitis, anemia, "burned mouth syndrome", duodenal AVMs and GERD, living with her daughter and grandson, who was found to be progressively more lethargic through the day, then developed AMS and EVAC services were requested. Per ED notes, EVAC elicited a history of an intentional drug overdose 11/30 after taking excessive Lortab and Restoril. She was prescribed these medications by her PCP, who had seen her recently and was attempting a weaning protocol, but she felt depressed and so took an overdose. In the ED, she was given Narcan 2 mg IV in the ED without response. She was intubated in the ER for airway protection and transferred to the care of the license issuer service in ICU. Her presenting labs showed an elevated WBC count of 15.1, Hgb 9.0, Hct 28.4, K+ 2.6, urine toxicology positive for opiates and benzodiazepines. CXR showed Left base consolidation.She was treated empirically with vancomycin and zosyn and campos cultures obtained, potassium repleted. Cultures showed E.Coli in the urine and Cornyebacerium Not Jk in the blood. She was stabilized and extubated 12/02 and subsequently transferred to psychiatry due to her overdose for further evaluation and management of her depression. While she was being stabilized in the psychiatric unit, on 12/07, she developed hematemesis and was transferred to the medical psychiatry unit, where she was evaluated by Dr. Escalera and underwent EGD showing pyloric stenosis, gastric ulcers, ulcerative esophagitis and retained food in stomach. On 12/12 her hemoglobin was found to be 6.1 and transfusion was indicated, initiating a transfer back to [facility] for transfusion and further management. She was transfused and today has a stable hemoglobin of 12.6/hct 36.7. She underwent EGD 12/[address] Escalera, showing LA Class C esophagitis, pyloric stenosis, unable to pass the scope, with an active ulceration and two ulcers 3- 7 mm in size in the prepyloric region. Biopsy was taken of the esophagitis, but no dilation done of the pyloric stenosis, due to active ulceration in the area and recent bleeding. GI has initiated an anti-reflux regimen with PPI, Carafate 1 gm TID and NSAID avoidance. They would like to repeat EGD in two weeks with planned dilation. She was seen today, resting in bed, answering questions appropriately. She was able to provide information regarding her health status and appeared to have insight into those processes. She described her "burning mouth syndrome" and stated it was due to an antibiotic given to her by a physician. Her daughter, Annita, also verified that information, independently in a later telephone conversation. She stated she wanted her daughter, Annita, to be her medical decision maker, in case of her incapacitation, however, it appears she is capable of participating in those decisions. She did state she wanted to be resuscitated by CPR and intubation, if needed. Her daughter, Annita, would like to discuss that with her mother when she visits today. Addendum: Per Family Conference addendum, further discussion was held with the patient and daughter to ensure that the patient fully understood the benefits/ burdens of CPR and intubation. After further education, questions and discussion, the patient stated to her daughter, Annita, and myself, in the presence of the RN, Ariadna, that she did not want CPR or intubation and reiterated that several times during the conversation. . Function/Cognitive Trajectory Per my discussion with her daughter, Annita, her mother's functional status has declined since 09/2015 after she fell, sustaining right superior and inferior pubic fractures. She did short term rehab at [facility] [place] and was able to walk and manage to remain in her own home, assisted by her 37 year old grandson and a friend, who both live with her and provide support with cooking and cleaning. She has not been able to drive since then, but was previously very active. The patient will be going to [facility] [place] for more rehabilitative therapy. . (Alyson Ceballos) Review of Systems Constitutional: COMPLAINS OF: Fatigue, Weight loss, Change in appetite, Generalized weakness Ears, nose, mouth, throat: COMPLAINS OF: Odynophagia ("burned mouth syndrome") Respiratory: COMPLAINS OF: Shortness of breath Gastrointestinal: COMPLAINS OF: Vomiting blood Musculoskeletal: COMPLAINS OF: Neck pain Psychiatric: COMPLAINS OF: Depression (Alyson Ceballos) 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) - 02/2015 Past Medical History Allergic rhinitis Anemia Arthritis Atherosclerosis of aorta Judge's esophagus Chronic obstructive pulmonary disease Chronic kidney disease Close fracture of the right inferior and superior pubic ramus Diverticulosis Duodenal arteriovenous malformation Dysphasia Gastroparesis GERD Hiatal hernia Hypertension Rectal bowel syndrome Liver pain History of right renal mass Vitamin D insufficiency Vitiligo . Past Surgical History Left arthroscopic knee surgery Breast biopsy Capsule endoscopy Laparoscopic cholecystectomy EGD/colonoscopy Conrado fundoplication Laminectomy of lumbar spine Laryngoscopy Left breast lumpectomy Rotator cuff surgery . Reported Medications Reported Meds & Active Scripts Active Lisinopril 20 Mg Tab 20 Mg PO BID Cymbalta DR (Duloxetine HCl) 20 Mg Capdr 20 Mg PO DAILY Reported Multi Vitamin (Multiple Vitamin) 1 Tab Tab 1 Tab PO DAILY Aspirin 81 Mg Chew 81 Mg CHEW DAILY Iron (Ferrous Fumarate) 18 Mg Tab 18 Mg PO BID Metoprolol Tartrate 25 Mg Tab 25 Mg PO BID Omeprazole 20 Mg Tab 20 Mg PO DAILY B Complex Plus (B-Complex W/ Folic Acid) 1 Tab 1 Tab PO . Current Medications Medications (Trade) Dose Ordered Sig/Ghazala Route Start Time Stop Time Status Last Admin (Prinivil) 20 mg BID PO 12/12/16 21:00 12/15/16 07:44 (Lopressor) 25 mg BID PO 12/12/16 21:00 12/15/16 07:45 (Protonix Inj) 40 mg Q12H IV PUSH 12/12/16 16:00 12/15/16 04:41 Duloxetine HCl 30 mg 30 mg DAILY PO 12/14/16 09:00 12/15/16 07:45 Lactated Ringer's 1,000 ml @ 30 mls/hr Q24H PRN IV 12/14/16 02:30 12/17/16 02:29 Sodium Chloride 500 ml @ 30 mls/hr [id number] PRN IV 12/14/16 02:30 12/17/16 02:29 (Rocephin Inj/NS Inj) 100 ml @ 200 mls/hr Q24H IV 12/14/16 12:00 12/14/16 12:09 . Family History Mother had Parkinson's ds, CVA. Father with emphysema twice, has 1 son, 3 living daughters, 1 . . Substance Use Tobacco: smoked 1ppd X 47 yrs, quit 1998 Alcohol: rare Prescription med abuse: overdose of Lortab and restoril on admission 11/30/16 Illicits: None . Psychosocial History Lives in her own home with her 37 y/o grandson and her friend, who assist with her care. She had 4 daughters (one daughter is ) and 1 son. She has one brother and one sister. 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 Her first marriage ended after 12 years in divorce. There were 3 daughters from that marriage, one of which is since . Her second marriage ended in the of her . There were 2 children, 1 son and one daughter, Annita Lovelace (who serves as the point of contact) from this marriage. Her father shot himself due to his medical issues. . Spiritual/Cultural Factors Declines justin visit. States she has no spiritual preference. . (Alyson Ceballos) Living Will: Never completed Health Care Surrogate: Copy in medical record Durable Power of Social Worker School: Never completed Ethical and Legal Issues Patient oriented, appears to have some insight. She indicates she would like her daughter, Annita to be her legal decision maker. (Alyson Ceballos) Physical Exam Vital Signs Date Time Temp Pulse Resp B/P Pulse Ox O2 Delivery O2 Flow Rate FiO2 12/15/16 08:00 Nasal Cannula 2.00 12/15/16 08:00 98.5 72 16 161/74 97 12/15/16 05:00 98.0 81 18 174/84 100 12/15/16 00:00 97.3 71 20 147/70 98 12/14/16 20:40 Nasal Cannula 2.00 12/14/16 20:00 97.5 88 20 126/59 98 12/14/16 18:00 98.4 76 14 136/84 94 12/14/16 15:36 66 18 139/69 98 12/14/16 15:26 65 18 135/61 98 12/14/16 15:16 98.6 68 16 131/70 97 12/14/16 12:00 98.2 72 16 134/80 98 . 12/14/16 12/15/16 19:00 07:00 Intake Total 199 ml 360 ml Output Total 500 ml 350 ml Balance -301 ml 10 ml Intake Oral 0 ml 360 ml IV Total 99 ml 0 ml Other 100 ml Output Urine Total 500 ml 350 ml # Bowel Movements 0 0 . Exam CONSTITUTIONAL/GENERAL: This is a thin patient, well developed, in no apparent distress. TUBES/LINES/DRAINS: 20ga PIV CAITLYN SKIN: No jaundice, rashes, or lesions. Skin temperature appropriate. Not diaphoretic. HEAD: Atraumatic. Normocephalic. EYES: Pupils equal and round and reactive. Extraocular motions intact. No scleral icterus. No injection or drainage. Fundi not examined. ENT: Hearing diminished. Nose without bleeding or purulent drainage. Tongue without lesions, erythema. NECK: Trachea midline. Supple, nontender. CARDIOVASCULAR: Regular rate and rhythm without murmurs, gallops, or rubs. No JVD. Peripheral pulses symmetric. RESPIRATORY/CHEST: Symmetric, unlabored respirations. Clear to auscultation. Breath sounds equal bilaterally. No wheezes, rales, or rhonchi. GASTROINTESTINAL: Abdomen soft, non-tender, nondistended. No hepato-splenomegaly , or palpable masses. No guarding. Bowel sounds present. GENITOURINARY: Without palpable bladder distension. Araiza catheter in place. MUSCULOSKELETAL: Extremities without clubbing, cyanosis, or edema. NEUROLOGICAL: Awake and alert. Follows commands. Oriented X 3. PSYCHIATRIC: No obvious anxiety/depression. no apparent hallucinations or other psychotic thought process. . (Alyson Ceballos) Diagnostic Tests Laboratory Laboratory Tests Test 12/12/16 12/12/16 12/13/16 12/14/16 18:16 23:00 06:21 05:05 Blood Type O POSITIVE Antibody Screen NEGATIVE Crossmatch Leukocyte-Reduced Red Blood Cells Blood Bank Comment Urine Color YELLOW (YELLW/STRAW) Urine Turbidity HAZY (CLEAR) Urine pH 6.0 (5.0-8.5) Urine Specific [place] 1.017 (1.002-1.035) Urine Protein TRACE mg/dL (NEG-TRACE) Urine Glucose (UA) NEG mg/dL (NEG) Urine Ketones NEG mg/dL (NEG) Urine Occult Blood TRACE (NEG) Urine Nitrite NEG (NEG) Urine Bilirubin NEG (NEG) Urine Urobilinogen LESS THAN 2.0 MG/DL (LESS THAN 2.0) Urine Leukocyte Esterase LARGE (NEG) Urine RBC 3 /hpf (0-3) Urine WBC 153 /hpf (0-5) Urine Renal Epithelial Cells <1 /hpf (NONE) Urine Bacteria OCC /hpf (NONE) Urine Hyaline Casts 2 /lpf (RARE) Microscopic Urinalysis Comment CATH-CULTURE IND White Blood Count 14.4 TH/MM3 9.5 TH/MM3 (4.0-11.0) (4.0-11.0) Red Blood Count 4.27 MIL/MM3 4.28 MIL/MM3 (4.00-5.30) (4.00-5.30) Hemoglobin 12.3 GM/DL 12.1 GM/DL (11.6-15.3) (11.6-15.3) Hematocrit 36.5 % 36.8 % (35.0-46.0) (35.0-46.0) Mean Corpuscular Volume 85.5 FL 85.9 FL (80.0-100.0) (80.0-100.0) Mean Corpuscular Hemoglobin 28.8 PG 28.3 PG (27.0-34.0) (27.0-34.0) Mean Corpuscular Hemoglobin 33.7 % 32.9 % Concent (32.0-36.0) (32.0-36.0) Red Cell Distribution Width 14.4 % 14.5 % (11.6-17.2) (11.6-17.2) Platelet Count 412 TH/MM3 378 TH/MM3 (150-450) (150-450) Mean Platelet Volume 7.4 FL 7.7 FL (7.0-11.0) (7.0-11.0) Neutrophils (%) (Auto) 94.6 % 74.9 % (16.0-70.0) (16.0-70.0) Lymphocytes (%) (Auto) 2.4 % 10.2 % (9.0-44.0) (9.0-44.0) Monocytes (%) (Auto) 1.4 % (0.0-8.0) 9.2 % (0.0-8.0) Eosinophils (%) (Auto) 1.3 % (0.0-4.0) 5.2 % (0.0-4.0) Basophils (%) (Auto) 0.3 % (0.0-2.0) 0.5 % (0.0-2.0) Neutrophils # (Auto) 13.6 TH/MM3 7.1 TH/MM3 (1.8-7.7) (1.8-7.7) Lymphocytes # (Auto) 0.3 TH/MM3 1.0 TH/MM3 (1.0-4.8) (1.0-4.8) Monocytes # (Auto) 0.2 TH/MM3 0.9 TH/MM3 (0-0.9) (0-0.9) Eosinophils # (Auto) 0.2 TH/MM3 0.5 TH/MM3 (0-0.4) (0-0.4) Basophils # (Auto) 0.0 TH/MM3 0.0 TH/MM3 (0-0.2) (0-0.2) CBC Comment AUTO DIFF AUTO DIFF Differential Total Cells 100 Counted Neutrophils % (Manual) 80 % (16-70) Band Neutrophils % 7 % (0-6) Lymphocytes % 5 % (9-44) Monocytes % 4 % (0-8) Eosinophils % 2 % (0-4) Basophils % 1 % (0-2) Neutrophils # (Manual) 12.7 TH/MM3 (1.8-7.7) Myelocytes 1 % (0-0) Differential Comment FINAL DIFF AUTO DIFF MANUAL CONFIRMED Platelet Estimate NORMAL (NORMAL) Platelet Morphology Comment NORMAL (NORMAL) Sea Cells 1+ (NORMAL) Sodium Level 140 MEQ/L 139 MEQ/L (136-145) (136-145) Potassium Level 3.4 MEQ/L 3.4 MEQ/L (3.5-5.1) (3.5-5.1) Chloride Level 107 MEQ/L 106 MEQ/L (98-107) (98-107) Carbon Dioxide Level 23.9 MEQ/L 21.7 MEQ/L (21.0-32.0) (21.0-32.0) Anion Gap 9 MEQ/L (5-15) 11 MEQ/L (5-15) Blood Urea Nitrogen 20 MG/DL (7-18) 15 MG/DL (7-18) Creatinine 0.68 MG/DL 0.65 MG/DL (0.50-1.00) (0.50-1.00) Estimat Glomerular Filtration 84 ML/MIN (>89) 88 ML/MIN (>89) Rate Random Glucose 97 MG/DL 101 MG/DL (74-106) (74-106) Calcium Level 7.7 MG/DL 7.6 MG/DL (8.5-10.1) (8.5-10.1) Magnesium Level 1.6 MG/DL 1.6 MG/DL (1.5-2.5) (1.5-2.5) Test 12/15/16 05:12 White Blood Count 11.4 TH/MM3 (4.0-11.0) Red Blood Count 4.42 MIL/MM3 (4.00-5.30) Hemoglobin 12.6 GM/DL (11.6-15.3) Hematocrit 38.7 % (35.0-46.0) Mean Corpuscular Volume 87.5 FL (80.0-100.0) Mean Corpuscular Hemoglobin 28.5 PG (27.0-34.0) Mean Corpuscular Hemoglobin 32.6 % Concent (32.0-36.0) Red Cell Distribution Width 14.8 % (11.6-17.2) Platelet Count 367 TH/MM3 (150-450) Mean Platelet Volume 7.6 FL (7.0-11.0) Neutrophils (%) (Auto) 67.8 % (16.0-70.0) Lymphocytes (%) (Auto) 15.4 % (9.0-44.0) Monocytes (%) (Auto) 12.7 % (0.0-8.0) Eosinophils (%) (Auto) 3.0 % (0.0-4.0) Basophils (%) (Auto) 1.1 % (0.0-2.0) Neutrophils # (Auto) 7.8 TH/MM3 (1.8-7.7) Lymphocytes # (Auto) 1.8 TH/MM3 (1.0-4.8) Monocytes # (Auto) 1.4 TH/MM3 (0-0.9) Eosinophils # (Auto) 0.3 TH/MM3 (0-0.4) Basophils # (Auto) 0.1 TH/MM3 (0-0.2) CBC Comment AUTO DIFF Differential Total Cells 100 Counted Neutrophils % (Manual) 69 % (16-70) Band Neutrophils % 2 % (0-6) Lymphocytes % 9 % (9-44) Monocytes % 12 % (0-8) Eosinophils % 3 % (0-4) Basophils % 3 % (0-2) Neutrophils # (Manual) 8.3 TH/MM3 (1.8-7.7) Metamyelocytes 1 % (0-1) Myelocytes 1 % (0-0) Differential Comment FINAL DIFF MANUAL Platelet Estimate NORMAL (NORMAL) Platelet Morphology Comment NORMAL (NORMAL) Sodium Level 136 MEQ/L (136-145) Potassium Level 3.4 MEQ/L (3.5-5.1) Chloride Level 106 MEQ/L (98-107) Carbon Dioxide Level 21.4 MEQ/L (21.0-32.0) Anion Gap 9 MEQ/L (5-15) Blood Urea Nitrogen 13 MG/DL (7-18) Creatinine 0.55 MG/DL (0.50-1.00) Estimat Glomerular Filtration 107 ML/MIN Rate (>89) Random Glucose 90 MG/DL (74-106) Calcium Level 7.4 MG/DL (8.5-10.1) Protein Corrected Calcium 9.0 MG/DL (8.5-10.1) Total Protein 4.3 GM/DL (6.4-8.2) . (Alyson Ceballos) Result Diagram: 12/15/1651112/15/16511 Microbiology Microbiology Date/Time Procedure Status Source Growth 12/12/16 23:00 Urine Culture - Final Complete Urine Catheterized Urine Escherichia Coli Procedures Intubation 11/30 Extubation 12/02 Panendoscopy with Bx 12/14 (Alyson Ceballos) Patient/Family Conference Present at Family Conference: Spoke with daughter, Annita Lovelace, via telephone and discussed palliative care consultation to provide symptom management, establish GOC and medical updates. She endorsed patient's decline over the prior 18 months, since her fall with pelvic fracture, and felt that she had been overmedicated for her pain , which is located in her back as well as her mouth, due to the fall and pelvic fracture and an antibiotic reaction resulting in the burned mouth syndrome. She stated that she did not feel that it was a deliberate overdose, but that her mother was overmedicated and confused. She had been discussing this with the PCP, who was starting a weaning protocol. Advanced directives were discussed, in keeping with the patient's stated wishes that Annita be her Legal decision maker and Annita stated that no paperwork had been completed to her knowledge, but that she has been the primary decision maker for the patient and would serve as the surrogate. She plans to visit her mother later today and HCS paperwork will be executed at that time. She stated she did not think her mother should be resuscitated and will discuss this with her mother today at her visit. Addendum: 16:15 Met with patient for discussion of HCS. Patient again indicated that she wanted her daughter, Annita Lovelace, to be her HCS in the presence of myself, TOLU Alvares and her nurse, Ariadna. The patient initialed the form which was witnessed by her nurse, Ariadna and TOLU Alvares. Met again with and daughter Annita at 16:45 for further discussion of patient's wishes. Discussion included code status, where patient expressed to myself and her daughter, Annita, that she would not wish to have CPR or intubation done in case of code situation, but would wish to have full treatment of any other health condition such as pneumonia, infections or other health conditions that might arise, including going to [facility] for short term rehab. In agreement with patient and daughter's wishes a DNR order was entered. . Family Conference Time (mins): 20 Family Conference Location: Bedside (For the later meeting with patient and daughterAnnita), Telephone (with daughter, Annita, in preparation for afternoon meeting.) Issues Discussed: * Palliative care role, purpose, approach * Additional medical, psychosocial, and spiritual history * Patients general health, functional status, and cognitive changes in the months leading up to the current hospitalization * Patient/family understanding of the current medical problems * Patient/family understanding of prognosis * Patients goals of care as best understood from advance directives and/or conversations and/or values * Current medical treatment options and benefits/burdens of those options * Questions answered to the best of my ability * Palliative care contact information provided, pamphlet left at bedside for daughter. . (Alyson Ceballos) Assessment and Plan Disease Oriented Problem List: (1) UTI (urinary tract infection) (2) Generalized weakness (3) HTN (hypertension) (4) Depression (5) Anemia (6) Hematemesis (7) OD (overdose of drug) (8) GERD (gastroesophageal reflux disease) (9) Gastroparesis (10) COPD (chronic obstructive pulmonary disease) Symptom Scale: (1) Nausea & vomiting 0-10 Scale: Unable to quantify (2) Constipation 0-10 Scale: Unable to quantify (3) Depression 0-10 Scale: Unable to quantify Pertinent Non-Medical Issues * Psychosocial: Lives in her own home with her 37 y/o grandson and her friend, who assist with her care. She had 4 daughters (one daughter is ) and 1 son. She has one brother and one sister. 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 Her first marriage ended after 12 years in divorce. There were 3 daughters from that marriage, one of which is since . Her second marriage ended in the of her . There were 2 children, 1 son and one daughter, Annita Lovelace (who serves as the point of contact) from this marriage. Her father shot himself due to his medical issues. * Spiritual: States she has no spiritual affiliation and does not wish a market research intern visit. * Legal: She states she wants her daughter, Annita, to be her HCS and that paperwork was done at today's visit with the daughter and patient. * Ethical issues impacting care: . Important Contacts Annita Lovelace (daughter) [phone] Syed Shfaer (son) [phone] . Prognosis The patient has depression and chronic pain in both her back and mouth, which led to an overdose of pain and sleep medications, possibly purposeful. She has been treated for several GI conditions including esophagitis, gastric and pyloric ulcers, bleeding, GERD and gastroparesis. Her mobility is impaired by pain and the chronic use of narcotics. Her prognosis for full recovery of mobility and cognitive status is guarded, given her multiple comorbidities. Advanced directives will be addressed at family meeting today. . Code Status: No Code Plan * Legal decision maker: Patient stated she wants her daughter, Annita to be her HCS. We will assist the patient in the process of that. Annita did agree to be the HCS as requested by her mother. Patient signed HCS form indicating Annita as her HCS. Copy was scanned to HIM and one copy given to daughter. * Goals: Patient stated she wanted no resuscitation efforts, but would want full treatment of any other medical conditions. She wants to go to [facility] for rehab with the goal of returning to her home. * Code Status: DNR per discussion with daughter and patient today. Symptoms * Nausea & Vomiting - patient denies any symptoms today. No recurrent hematemesis, but has been NPO after EGD. As diet is resumed, this will be monitored for recurrence. * Pain - complains of mouth and buttocks pain. Continue mouth care and repositioning to relieve pressure. Patient she is in a comfortable position now. * Dyspnea - SOB is mild and improved with use of O2. Atelectasis and pleural effusion seen on CXR. Would recommend pulmonary toilet and nebulizers as needed. Ongoing discussion of goals at the meeting with the daughter today was done with execution of HCS and code status election of DNR as noted in family conference addendum. Palliative care will continue to follow as condition evolves, to assist patient/decision-maker with understanding of medical conditions, weighing benefits/burdens of treatment options, for clarification of goals of treatment. Additionally we assist with any symptoms of palliative concern. . (Alyson Ceballos) Thank you for the opportunity to participate in the care of Ms. Shafer. (Alyson Ceballos) Attestation To help prompt me to consider important information that might be impacting today's encounter and assessment, information from prior notes written by myself or my colleagues may have been "brought forward" into today's note. My signature on this note, however, is an attestation that I personally performed the exam, history, and/or decision-making noted today, and, unless otherwise indicated, the interactions with patient, family, and staff as well as the review of records all occurred today. I also attest that the listed assessment and stated plan reflect my best clinical judgment today based on the combination of historical information, prior notes, and today's exam/ interactions. When time spent is documented, it refers only to time spent today by the signer, or if indicated, combined time spent today by collaborating physician/nurse practitioner. (Alyson Ceballos) Collaborating MD Comments Dual visit w Sylvia MOTLEY. Agree with above documentation. PT seen in room w/ N Lin MOTLEY. She is alert, mostly oriented though at times forgetful. Cooperative. Seems to have some limited insight into health, conditions, hospitalization. ROS is essentially negative, however she endorses chronic oral pain. She wants us to call and update her daughter Annita. She indicates she would want Annita to be her decision maker in an emergency or if she is unable, will assist her later to complete HCS documentation. PE: CONSTITUTIONAL/GENERAL: This is a thin patient, well nourished, in no apparent distress. TUBES/LINES/DRAINS: PIV CAITLYN SKIN: No jaundice, rashes, or lesions. trace edema rt upper FA. Skin temperature appropriate. Not diaphoretic. ENT: Hearing diminished. Nose without bleeding or purulent drainage. Tongue without lesions, erythema, no oropharyngeal exudates CARDIOVASCULAR: Regular rate and rhythm no murmurs. Peripheral pulses symmetric. RESPIRATORY/CHEST: Symmetric, unlabored respirations on room air. Clear to auscultation. GASTROINTESTINAL: Abdomen soft, non-tender, nondistended. Bowel sounds present. GENITOURINARY: Without palpable bladder distension. Araiza catheter in place. MUSCULOSKELETAL: Extremities without clubbing, cyanosis. Trace edema rt forearm. NEUROLOGICAL: Awake and alert, mostly oriented to month/place/city/hospital, confused year. cooperative, moves all 4 extremities PSYCHIATRIC: No obvious anxiety/depression. . (Elif Florez) Alyson Ceballos December 15, 2016 12:11 Elif Florez December 15, 2016 16:23
[2016-12-15] MEDS: POTASSIUM CHLORIDE 20 MEQ CONTROLLED RELEASE TAB PO SCH ×2 (12:35→16:54)
[2016-12-15] MEDS ORDERED: cloNIDine HCL 0.1 MG TAB PO PRN (12:45)
--- NOTE | 2016-12-15 14:41 | HHI.GIFU ---
Subjective Remarks Up in chair. Not much appetite- taking some ensure and full liquids. (Gogo Limon) Objective Vitals I&O Vital Signs Date Time Temp Pulse Resp B/P Pulse Ox O2 Delivery O2 Flow Rate FiO2 12/15/16 12:00 96.3 80 17 124/68 96 12/15/16 08:00 Nasal Cannula 2.00 12/15/16 08:00 98.5 72 16 161/74 97 12/15/16 05:00 98.0 81 18 174/84 100 12/15/16 00:00 97.3 71 20 147/70 98 12/14/16 20:40 Nasal Cannula 2.00 12/14/16 20:00 97.5 88 20 126/59 98 12/14/16 18:00 98.4 76 14 136/84 94 12/14/16 15:36 66 18 139/69 98 12/14/16 15:26 65 18 135/61 98 12/14/16 15:16 98.6 68 16 131/70 97 I/O 12/14/16 12/14/16 12/14/16 12/15/16 12/15/16 12/15/16 07:00 15:00 23:00 07:00 15:00 23:00 Intake Total 120 ml 99 ml 340 ml 120 ml 99 ml Output Total 350 ml 500 ml 100 ml 250 ml Balance -230 ml -401 ml 240 ml -130 ml 99 ml Intake Oral 120 ml 0 ml 240 ml 120 ml IV Total 99 ml 0 ml 0 ml 99 ml Other 100 ml Output Urine Total 350 ml 500 ml 100 ml 250 ml # Bowel Movements 0 0 0 0 1 Laboratory Laboratory Tests Test 12/15/16 05:12 White Blood Count 11.4 Red Blood Count 4.42 Hemoglobin 12.6 Hematocrit 38.7 Mean Corpuscular Volume 87.5 Mean Corpuscular Hemoglobin 28.5 Mean Corpuscular Hemoglobin 32.6 Concent Red Cell Distribution Width 14.8 Platelet Count 367 Mean Platelet Volume 7.6 Neutrophils (%) (Auto) 67.8 Lymphocytes (%) (Auto) 15.4 Monocytes (%) (Auto) 12.7 Eosinophils (%) (Auto) 3.0 Basophils (%) (Auto) 1.1 Neutrophils # (Auto) 7.8 Lymphocytes # (Auto) 1.8 Monocytes # (Auto) 1.4 Eosinophils # (Auto) 0.3 Basophils # (Auto) 0.1 CBC Comment AUTO DIFF Differential Total Cells 100 Counted Neutrophils % (Manual) 69 Band Neutrophils % 2 Lymphocytes % 9 Monocytes % 12 Eosinophils % 3 Basophils % 3 Neutrophils # (Manual) 8.3 Metamyelocytes 1 Myelocytes 1 Differential Comment FINAL DIFF MANUAL Platelet Estimate NORMAL Platelet Morphology Comment NORMAL Sodium Level 136 Potassium Level 3.4 Chloride Level 106 Carbon Dioxide Level 21.4 Anion Gap 9 Blood Urea Nitrogen 13 Creatinine 0.55 Estimat Glomerular Filtration 107 Rate Random Glucose 90 Calcium Level 7.4 Protein Corrected Calcium 9.0 Total Protein 4.3 Date/Time Procedure Status Source Growth 12/12/16 23:00 Urine Culture - Final Complete Urine Catheterized Urine Escherichia Coli Imaging Last Impressions Chest X-Ray 12/14/16 0000 Signed Impressions: Service Date/Time: Wednesday, December 14, 2016 11:19 - CONCLUSION: 1. Right basilar pleural-parenchymal density likely atelectasis and pleural effusion. 2. Prominence of the right hilum. CT chest recommended for further characterization. Sebastien Levine MD Chest CT 12/14/16 0000 Signed Impressions: Service Date/Time: Wednesday, December 14, 2016 16:50 - CONCLUSION: Bilateral pleural effusions and consolidative changes most significantly in the posterior right lung base. See above discussion. Dima Tarango MD Physical Exam HEENT: Normocephalic CHEST: CTA, but diminished throughout. CARDIAC: RRR ABDOMEN: Soft, nondistended, nontender; no hepatosplenomegaly; bowel sounds are present in all four quadrants. EXTREMITIES: BUE edema. SKIN: Normal; no rash; no jaundice. TUBE TRAILER FILLER: No focal deficits; lethargic and oriented times three. (Gogo Limon [facility]) Assessment and Plan Plan ASSESSMENT: - Anemia. S/P EGD (12/14/16)-----> 1. There was LA Class C esophagitis noted; biopsy was performed 2. 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 Not dilated due to active ulceration in this area and recent bleeding 3. Two ulcers ranging between 3-7mm in size were found in the prepyloric region of the stomach; biopsies were taken 4. Retroflexed views revealed no abnormalities. Pathology pending. PPI, Carafate. HH 12.6/38.7. - Ulcerative esophagitis, PPI/Carafate. - Gastric ulcers, 2 raning 3-7 mm in size in the prepyloric region of the stomach. Pathology pending. PPI/Carafate. - Pyloric stenosis. Not dilated secondary to active ulceration in this area with recent bleeding. Will need repeat EGD with dilatation in 2 weeks. pt with poor appetite, but denies food getting caught. Taking full liquids and ensure- small amounts. Encouraged ensure. PLAN: - Full liquids with ensure - Await pathology - Cont. PPI/Carafate - Rpt. EGD with dilatation in 2 weeks (Pyloric stenosis) - Monitor HH - Avoid NSAIDs - Supportive care - Further recommendations to follow based on results of above - Pt seen and examined by Dr. Foss and myself and this note is written on his behalf (Gogo Limon) Physician Comments Seen and examined with TOLU, s/p egd with esophageal and gastric ulcers. Poor po intake, may need G/J tube placement till ulcers heal. encouraged to increase po intake. Carafate liquid 1 gm po tid. (Urmila Foss MD) Gogo Limon December 15, 2016 14:41 Urmila Foss MD December 15, 2016 15:49
[2016-12-15 16:00] VITALS: BP 132/73; PULSE 77; RESP 18; TEMP 96.7; O2SAT 97
[2016-12-15] MEDS: SUCRALFATE 1 GM/10 ML CUP PO SCH ×2 (16:53→20:41)
[2016-12-15 20:00] VITALS: BP 158/76; PULSE 88; RESP 18; TEMP 99.8; O2SAT 98
[2016-12-16] VITALS: BP 163/80; PULSE 71; RESP 18; TEMP 98.7; O2SAT 97
[2016-12-16 04:00] VITALS: BP 152/74; PULSE 88; RESP 18; TEMP 98; O2SAT 98
[2016-12-16] MEDS: SUCRALFATE 1 GM/10 ML CUP PO SCH ×3 (05:26→17:04)
[2016-12-16] MEDS: PANTOPRAZOLE SODIUM 40 MG VIAL IV PUSH SCH (05:26)
[2016-12-16 08:00] VITALS: BP 180/84; PULSE 95; RESP 17; TEMP 97.3; O2SAT 99
[2016-12-16] MEDS: LISINOPRIL 20 MG TAB PO SCH (08:37)
[2016-12-16] MEDS: DULoxetine HCl DR 30 MG CAP PO SCH (08:37)
[2016-12-16] MEDS: METOPROLOL TARTRATE 25 MG TAB PO SCH (08:37)
[2016-12-16] MEDS ORDERED: LEVOFLOXACIN 500 MG TAB PO SCH (09:00)
[2016-12-16] MEDS ORDERED: SUCR1S PO (11:02)
[2016-12-16] MEDS ORDERED: PANT40TA3 PO (11:02)
[2016-12-16] MEDS ORDERED: LEVA500T PO (11:02)
[2016-12-16] MEDS ORDERED: DULO1CAP2 PO (11:02)
--- NOTE | 2016-12-16 11:05 | HHI.DCPOC ---
Discharge Care Plan Diagnosis: (1) OD (overdose of drug) (2) Depression (3) PUD (peptic ulcer disease) (4) Pyloric stenosis (5) Nonsustained paroxysmal supraventricular tachycardia (6) HTN (hypertension) (7) Bladder retention of urine (8) Nausea & vomiting (9) GERD (gastroesophageal reflux disease) Goals to Promote Your Health * To prevent worsening of your condition and complications * To maintain your health at the optimal level Directions to Meet Your Goals Take your medications as prescribed Follow your dietary instruction Follow activity as directed Keep your appointments as scheduled Take your immunizations and boosters as scheduled If your symptoms worsen call your PCP, if no PCP go to Urgent Care Center or Emergency Room Smoking is Dangerous to Your Health. Avoid second hand smoke Call the 24-hour hour crisis hotline for domestic abuse at Leidy See December 16, 2016 11:05
--- NOTE | 2016-12-16 11:33 | HHI.DS ---
Discharge Summary Admission Date Dec 12, 2016 at 14:58 Discharge Date: December 16, 2016 Admitting Diagnosis (1) Anemia Diagnosis: Principal (2) PUD (peptic ulcer disease) Diagnosis: Secondary (3) Pyloric stenosis Diagnosis: Secondary (4) UTI (urinary tract infection) Diagnosis: Secondary (5) HTN (hypertension) Diagnosis: Secondary (6) Depression Diagnosis: Secondary (7) Nonsustained paroxysmal supraventricular tachycardia Diagnosis: Secondary Consultants Dr. Ace Escalera - GI Dr. Nidhi Carson - Palliative Medicine Brief History Patient is a 68-year-old female initially admitted to [facility] 11/30/16 due to drug overdose. Patient was admitted to the ICU under the service of the touring production manager. Patient required intubation with mechanical ventilation. Once medically stabilized patient was transferred to [facility] facility. On 12/07/16 patient developed hematemesis and was transferred to the medical psychiatry unit. He should underwent EGD performed by Dr. Ace Escalera and on 12/10/16. Patient was found to have pyloric stenosis, gastric ulcers, ulcerative esophagitis, and retained food in the stomach. On 12/12/2016 patient's repeat hemoglobin was 6.1. Upon being called with results, I requested transfusion of 2 units of PRBCs. Patient transferred to [facility] general medical floor for further evaluation and treatment. CBC/BMP: 12/15/16 0512 12/15/16 0512 Significant Findings Laboratory Tests Test 12/14/16 12/15/16 05:05 05:12 Neutrophils (%) (Auto) 74.9 % (16.0-70.0) Monocytes (%) (Auto) 9.2 % (0.0-8.0) 12.7 % (0.0-8.0) Eosinophils (%) (Auto) 5.2 % (0.0-4.0) Eosinophils # (Auto) 0.5 TH/MM3 (0-0.4) Potassium Level 3.4 MEQ/L 3.4 MEQ/L (3.5-5.1) (3.5-5.1) Estimat Glomerular Filtration 88 ML/MIN (>89) Rate Calcium Level 7.6 MG/DL 7.4 MG/DL (8.5-10.1) (8.5-10.1) White Blood Count 11.4 TH/MM3 (4.0-11.0) Neutrophils # (Auto) 7.8 TH/MM3 (1.8-7.7) Monocytes # (Auto) 1.4 TH/MM3 (0-0.9) Monocytes % 12 % (0-8) Basophils % 3 % (0-2) Neutrophils # (Manual) 8.3 TH/MM3 (1.8-7.7) Myelocytes 1 % (0-0) Total Protein 4.3 GM/DL (6.4-8.2) Imaging Last Impressions Chest X-Ray 12/14/16 0000 Signed Impressions: Service Date/Time: Wednesday, December 14, 2016 11:19 - CONCLUSION: 1. Right basilar pleural-parenchymal density likely atelectasis and pleural effusion. 2. Prominence of the right hilum. CT chest recommended for further characterization. Sebastien Lveine MD Chest CT 12/14/16 0000 Signed Impressions: Service Date/Time: Wednesday, December 14, 2016 16:50 - CONCLUSION: Bilateral pleural effusions and consolidative changes most significantly in the posterior right lung base. See above discussion. Dima Tarango MD PE at Discharge General: NAD, Awake, alert Chest: CTA Cardiac: Regular Abd: +BS, soft ND mild epigastric discomfort with palpation Ext: No edema Araiza cath in place Hospital Course Pt was initially admitted to ICU after an unintentional overdose on narcotic/ benzos on 11/30/16 and was intubated. She improved clinically and was taken extubated on 12/02 and then transferred to psych unit. While in the psych unit she developed hematemesis and blood loss anemia while on 12/07/16. GI was consulted and pt underwent evaluation with EGD on 12/10/16 which noted severe ulcerative esophagitis in the distal esophagus, the stomach was full of old with food and the evaluation was incomplete there were superficial ulcers in the antrum and the pylorus appeared to be severely stenosed biopsies were taken from the antrum and then using a balloon dilator sizes 6,7 and 8 then followed by 03/24/10 postdilatation view was satisfactory but still was not able to pass the scope but no tear noted. Patient was transferred from medical psychiatry floor to general medical floor on 12/12/16. Her Hemoglobin 8.3 (12/11/16), then dropped to 6.1 (12/12/16) and she was transfused 2 units of PRBCs (12/12/16) and now hgb recovered more than would be expected. Repeat EGD on 12/14/16 noted LA Class C esophagitis, pyloric stenosis, unable to pass scope and was not dilated due to active ulceration in this area and recent bleeding, two ulcers ranging between 3-7mm in size were found in the prepyloric region of the stomach. Pathology pending. Pt was placed on Carafate 1gram po TIDAC in addition to her PPI and has been tolerating full liquid diet with Ensure. Pt was recommended to have a repeat EGD with attempt at dilation of pyloric stenosis in 2 weeks. Pt has still be requiring supplemental O2. CXR on 12/14 noted right basilar pleural-parenchymal density likely atelectasis and pleural effusion and prominence of the right hilum. CT chest on 12/14 noted bilateral pleural effusions and consolidative changes most significantly in the posterior right lung base. This wasn't clearly a pneumonia but given pts pyloric stenosis and previous N/V there was concern for this. During admission pt had issues with urinary retention and was noted to have a UTI with urine cx growing E. coli, pansensitive. Pt was initially on Rocephin and this was converted to PO Levaquin on 12/16/16 to cover for both the UTI and questionable pneumonia. Araiza catheter was removed on 12/16/16. Pt was attempted to be weaned off the supplemental O2 prior to discharge. She was encouraged to use the IS. Pts BP has been relatively stable on her home doses of lisinopril, metoprolol. She has had some intermittent issues with anxiety which seem to elevate her BP. Pt was notably depressed and was being followed by Psychiatry throughout this entirety of this admission. Her Cymbalta was increased to 30mg po daily. She was found on telemetry to have a 4 beat run of nonsustained VTach but was asymptomatic Pt is being discharged to SNF She will need to followup with GI in 1-2 weeks for scheduling repeat EGD with dilation in 2 weeks She will need to followup with [facility] in 1 week Pt will need to followup with her PCP, Dr. Daniel Soto, 1 week after discharge from SNF Pt Condition on Discharge: Stable Discharge Disposition: Discharge to SNF Discharge Instructions DIET: Follow Instructions for: Full Liquid Diet Additional Diet Instructions: Ensure with each meal and at bedtime Activities you can perform: Regular-No Restrictions Follow up Referrals: Gastroenterology - 2 Weeks with Ace Escalera MD PCP Follow-up - [address] Daniel Soto Psychiatry Adult - 1 Week with [facility] New Medications: Duloxetine (Duloxetine DR) 30 Mg Capdr 30 MG PO DAILY depression #30 CAP Levofloxacin (Levaquin) 500 Mg Tab 500 MG PO DAILY uti #5 TAB Pantoprazole (Pantoprazole) 40 Mg Tab 40 MG PO Q12HR gastric ulcer #30 TAB Sucralfate Liq (Sucralfate Liq) 1 Gm/10 Ml Lorna 1 GM PO ACHS gastric ulcer Days 30 BOTTLE Continued Medications: B-Complex W/ Folic Acid (B Complex Plus) 1 Tab 1 TAB PO TAB Ferrous Fumarate (Iron) 18 Mg Tab 18 MG PO BID Nutritional Supplement Ref 0 TAB Lisinopril (Lisinopril) 20 Mg Tab 20 MG PO BID htn #0 TAB Metoprolol Tartrate (Metoprolol Tartrate) 25 Mg Tab 25 MG PO BID #60 Ref 0 TAB Multiple Vitamin (Multi Vitamin) 1 Tab Tab 1 TAB PO DAILY TAB Discontinued Medications: Aspirin (Aspirin) 81 Mg Chew 81 MG CHEW DAILY Ref [address] (Cymbalta ) 20 Mg Capdr 20 MG PO DAILY depression #0 CAP Omeprazole (Omeprazole) 20 Mg Tab 20 MG PO DAILY #30 Ref 0 TAB Leidy See December 16, 2016 11:33 Stevenson Cervantes MD December 16, 2016 14:36
--- NOTE | 2016-12-16 11:51 | HHI.GIFU ---
Subjective Remarks Resting in bed. Feeling much better today. No n/v. States she is tolerating full liquids and taking ensure today. Wants to go to rehab. D/W patient importance of good nutrition and she states she is actually doing much better with this today. (Gogo Limon) Objective Vitals I&O Vital Signs Date Time Temp Pulse Resp B/P Pulse Ox O2 Delivery O2 Flow Rate FiO2 12/16/16 08:00 97.3 95 17 180/84 99 12/16/16 08:00 Nasal Cannula 2.00 12/16/16 04:00 98.0 88 18 152/74 98 12/16/16 00:00 98.7 71 18 163/80 97 12/15/16 20:40 Nasal Cannula 2.00 12/15/16 20:00 99.8 88 18 158/76 98 12/15/16 16:00 96.7 77 18 132/73 97 12/15/16 12:00 96.3 80 17 124/68 96 I/O 12/15/16 12/15/16 12/15/16 12/16/16 12/16/16 12/16/16 07:00 15:00 23:00 07:00 15:00 23:00 Intake Total 120 ml 575 ml 240 ml 120 ml Output Total 250 ml 325 ml 250 ml 250 ml Balance -130 ml 250 ml -10 ml -130 ml Intake Oral 120 ml 476 ml 240 ml 120 ml IV Total 0 ml 99 ml 0 ml 0 ml Output Urine Total 250 ml 325 ml 250 ml 250 ml # Bowel Movements 0 4 0 1 Laboratory Date/Time Procedure Status Source Growth 12/12/16 23:00 Urine Culture - Final Complete Urine Catheterized Urine Escherichia Coli Imaging Last Impressions Chest X-Ray 12/14/16 0000 Signed Impressions: Service Date/Time: Wednesday, December 14, 2016 11:19 - CONCLUSION: 1. Right basilar pleural-parenchymal density likely atelectasis and pleural effusion. 2. Prominence of the right hilum. CT chest recommended for further characterization. Sebastien Levine MD Chest CT 12/14/16 0000 Signed Impressions: Service Date/Time: Wednesday, December 14, 2016 16:50 - CONCLUSION: Bilateral pleural effusions and consolidative changes most significantly in the posterior right lung base. See above discussion. Dima Tarango MD Physical Exam HEENT: Normocephalic CHEST: CTA, but diminished throughout. CARDIAC: RRR ABDOMEN: Soft, nondistended, nontender; no hepatosplenomegaly; bowel sounds are present in all four quadrants. EXTREMITIES: BUE edema. SKIN: Normal; no rash; no jaundice. PERSONAL TRAINER: No focal deficits; lethargic and oriented times three. (Gogo Limon) Assessment and Plan Plan ASSESSMENT: - Anemia. S/P EGD (12/14/16)-----> 1. There was LA Class C esophagitis noted; biopsy was performed 2. 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 Not dilated due to active ulceration in this area and recent bleeding 3. Two ulcers ranging between 3-7mm in size were found in the prepyloric region of the stomach; biopsies were taken 4. Retroflexed views revealed no abnormalities. Pathology pending. PPI, Carafate. HH stable. - Ulcerative esophagitis, PPI/Carafate. - Gastric ulcers, 2 raning 3-7 mm in size in the prepyloric region of the stomach. Pathology pending. PPI/Carafate. - Pyloric stenosis. Not dilated secondary to active ulceration in this area with recent bleeding. Will need repeat EGD with dilatation in 2 weeks. Actually appetite much improved today and she is taking full liquids/ensure. States she is feeling better. PLAN: - Full liquids with ensure - Await pathology - Cont. PPI/Carafate - Rpt. EGD with dilatation in 2 weeks (Pyloric stenosis) - Avoid NSAIDs - Will hold off on G/J tube today, as she seems to be doing much better and taking po/ensure - FU JAYASHREE 1-2 weeks - Pt seen and examined by Dr. Foss and myself and this note is written on his behalf (Gogo Limon) Physician Comments Seen and examined with TOLU, feeling better today. Tolerating liquids. Repeat egd/dilation under floroscopy in 02 weeks. ? G/J tube.Discussed with primary service. (Urmila Foss MD) Gogo Limon December 16, 2016 11:51 Urmila Foss MD December 16, 2016 13:29
[2016-12-16 11:55] LABS: POTASSIUM 3.8 MEQ/L (3.5-5.1)
[2016-12-16 12:00] VITALS: BP 131/60; PULSE 82; RESP 17; TEMP 97.5; O2SAT 97
[2016-12-16 12:09] LABS: CALCIUM-PROTEIN CORRECTED 8.7 MG/DL (8.5-10.1)
[2016-12-16] MEDS ORDERED: PANTOPRAZOLE SOD 40 MG DELAYED RELEASE TAB PO SCH (21:00)
== END 2016-12-16 18:35 | DRG 811 ==
LOC: N07A 14:58
PROVIDERS: ADMIT Hospitalist; ATTEND Hospitalist
PROC: 30253N1 (ICD-10-PCS; principal; 2016-12-12)
PROC: 0DB58ZX Excision of Esophagus, Via Natural or Artificial Opening Endoscopic, Diagnostic (ICD-10-PCS; 2016-12-14)
PROC: 0DB68ZX Excision of Stomach, Via Natural or Artificial Opening Endoscopic, Diagnostic (ICD-10-PCS; 2016-12-14)
DX: D62 Acute posthemorrhagic anemia (principal); K22.11 Ulcer of esophagus with bleeding; J18.9 Pneumonia, unspecified organism; I47.2 Ventricular tachycardia; J90 Pleural effusion, not elsewhere classified; N39.0 Urinary tract infection, site not specified; K25.4 Chronic or unspecified gastric ulcer with hemorrhage; K31.1 Adult hypertrophic pyloric stenosis; I47.1 Supraventricular tachycardia; J98.11 Atelectasis; J44.0 Chronic obstructive pulmonary disease with (acute) lower respiratory infection; B96.20 Unspecified Escherichia coli [E. coli] as the cause of diseases classified elsewhere; I12.9 Hypertensive chronic kidney disease with stage 1 through stage 4 chronic kidney disease, or unspecified chronic kidney disease; N18.9 Chronic kidney disease, unspecified; F32.9 Major depressive disorder, single episode, unspecified; K21.9 Gastro-esophageal reflux disease without esophagitis; M85.80 Other specified disorders of bone density and structure, unspecified site; M19.90 Unspecified osteoarthritis, unspecified site; E55.9 Vitamin D deficiency, unspecified; K31.84 Gastroparesis; K59.00 Constipation, unspecified; L80 Vitiligo; Z51.5 Encounter for palliative care; Z66 Do not resuscitate; Z87.891 Personal history of nicotine dependence; Z91.5 Personal history of self-harm
CPT/HCPCS: 36430; 71010; 71250; 80048; 81001; 83735; 84155; 85007; 85025; 85027; 86850; 86900; 86901; 86920; 87077; 87086; 87186; 88305; 88312; C9113; J0696; J1940; P9016

== ENCOUNTER 2017-02-22 12:05 | Inpatient (IN) | payer MEDICARE ==
[~2017-02-22] VITALS: Ht 147.3 cm; Wt 37.0 kg
[~2017-02-22 12:05] MED LIST changes: -ASPI81CH CHEW; +DULO1CAP2 PO; -DULO20 PO; +LEVA500T PO; -OMEP20TA PO; +PANT40TA3 PO; +SUCR1S PO
[2017-02-22 12:22] VITALS: BP 178/80; PULSE 71; RESP 20; TEMP 98.2; O2SAT 98
[2017-02-22] MEDS ORDERED: SODIUM CHLORIDE 0.9% FLUSH 10 ML FLUSH IVF PRN (12:45)
--- NOTE | 2017-02-22 12:49 | PD ---
HPI Chief Complaint: General Weakness Time Seen by Provider: 12:36 Travel History International Travel<30 days: No Contact w/Intl Traveler<30days: No Traveled to known affect area: No History of Present Illness HPI 76-year-old female with history of multiple medical issues, presents to the ER today brought in by EMS because family state that she is refusing to even drink at home, and they state that they are worried, patient has been more weak than usual and they think that she may need further help or possibly put on hospice. Patient denies any problems eating and drinking although she does not remember eating anything at home. She admits she is generally weak. She denies any fevers, chest pains, shortness of breath, or any other issues. Modifying Factors: None Associated Signs & Symptoms: Refusing to eat and drink at home, weak Risk Factors: Elderly PFSH Past Medical History Arthritis: Yes (BILAT HANDS AND FEET) Asthma: No Autoimmune Disease: No Blood Disorders: No Anxiety: Yes Depression: Yes Heart Rhythm Problems: No Cancer: No Cardiovascular Problems: Yes High Cholesterol: No Chemotherapy: No Chest Pain: Yes Congestive Heart Failure: No COPD: No Cerebrovascular Accident: No Diabetes: No Diminished Hearing: Yes (hearing aids) Endocrine: No Gastrointestinal Disorders: Yes GERD: Yes Glaucoma: No Genitourinary: Yes Headaches: Yes Hepatitis: No Hiatal Hernia: Yes Hypertension: Yes Immune Disorder: No Implanted Vascular Access Dvce: Yes Kidney Stones: Yes Medical other: Yes (back and neck problems,acid reflux and gerd) Musculoskeletal: Yes Neurologic: Yes Psychiatric: No Reproductive: No Respiratory: Yes Migraines: No Radiation Therapy: No Renal Failure: No Seizures: No Sickle Cell Disease: No Sleep Apnea: No Thyroid Disease: Yes (overactive A YOUNG ADULT) Ulcer: No Tetanus Vaccination: > 5 Years Influenza Vaccination: Yes Menopausal: Yes Past Surgical History Abdominal Surgery: Yes (gallbaldder removal, hiatal hernia) AICD: No Arteriovenous Shunt: No Cholecystectomy: Yes (gallbladder ) Insulin Pump: No Joint Replacement: Yes Mastectomy: Yes (left ) Pacemaker: No Other Surgery: Yes (R knee replacement, screws and plate placement to back, bilateral rotator) Social History Alcohol Use: Yes (occasionally ) Tobacco Use: No Substance Use: No Allergies-Medications (Allergen,Severity, Reaction): Coded Allergies: Cipro (Unverified Allergy, Severe, THRUSH, 02/22/17) Demerol (Verified Allergy, Severe, Nausea/Vomiting, 02/22/17) Lortab (Verified Allergy, Severe, convulsion, 02/22/17) Morphine (Verified Allergy, Severe, VOMITING, 02/22/17) Percocet (Verified Allergy, Severe, CONVULSION, 02/22/17) Reglan (Verified Adverse Reaction, Intermediate, ANXIETY, 02/22/17) *MDRO Multi-Drug Resistant Organism (Verified Adverse Reaction, Unknown, ) 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) - 02/2015 Reported Meds & Prescriptions Reported Meds & Active Scripts Active Duloxetine DR (Duloxetine HCl) 30 Mg Capdr 30 Mg PO DAILY Pantoprazole (Pantoprazole Sodium) 40 Mg Tab 40 Mg PO Q12HR Lisinopril 20 Mg Tab 20 Mg PO BID Reported Megestrol (Megestrol Acetate) 20 Mg Tab 20 Mg PO QID Omeprazole 20 Mg Tab 20 Mg PO DAILY K-Tab (Potassium Chloride) 10 Meq Tab 10 Meq PO DAILY Sodium Bicarbonate 650 Mg Tab 650 Mg PO BIDPC Metoprolol Tartrate 25 Mg Tab 25 Mg PO BID Review of Systems Except as stated in HPI: all other systems reviewed are Neg Physical Exam Narrative GENERAL: Well-developed elderly white female patient currently in mild distress. Awake, alert. SKIN: Focused skin assessment warm/dry. HEAD: Atraumatic. Normocephalic. EYES: Pupils equal and round. No scleral icterus. No injection or drainage. ENT: No nasal bleeding or discharge. Mucous membranes pink and moist. NECK: Trachea midline. No JVD. CARDIOVASCULAR: Regular rate and rhythm. No murmur appreciated. RESPIRATORY: No accessory muscle use. Clear to auscultation. Breath sounds equal bilaterally. GASTROINTESTINAL: Abdomen soft, non-tender, nondistended. Hepatic and splenic margins not palpable. MUSCULOSKELETAL: No obvious deformities. No clubbing. No cyanosis. Bilateral pitting edema the legs. NEUROLOGICAL: Awake and alert. No obvious cranial nerve deficits. Motor grossly within normal limits. Normal speech. PSYCHIATRIC: Appropriate mood and affect; insight and judgment normal. Data Data Last Documented VS Vital Signs Date Time Temp Pulse Resp B/P Pulse Ox O2 Delivery O2 Flow Rate FiO2 02/22/17 12:22 98.2 71 20 178/80 98 Orders Electrocardiogram (02/22/17 12:33) Complete Blood Count With Diff (02/22/17 12:33) Comprehensive Metabolic Panel (02/22/17 12:33) Magnesium (Mg) (02/22/17 12:33) Ckmb (Isoenzyme) Profile (02/22/17 12:33) Troponin I (02/22/17 12:33) Act Partial Throm Time (Ptt) (02/22/17 12:33) Prothrombin Time / Inr (Pt) (02/22/17 12:33) Urinalysis - C+S If Indicated (02/22/17 12:33) Chest, Single Ap (02/22/17 12:33) Ecg Monitoring (02/22/17 12:33) Iv Access Insert/Monitor (02/22/17 12:33) Oximetry (02/22/17 12:33) Sodium Chloride 0.9% Flush (Ns Flush) (02/22/17 12:45) Ct Brain W/O Iv Contrast(Rout) (02/22/17 12:36) Ondansetron Inj (Zofran Inj) (02/22/17 14:30) Labs Laboratory Tests Test 02/22/17 02/22/17 13:15 14:30 White Blood Count 7.5 TH/MM3 Red Blood Count 4.45 MIL/MM3 Hemoglobin 12.7 GM/DL Hematocrit 39.9 % Mean Corpuscular Volume 89.7 FL Mean Corpuscular Hemoglobin 28.5 PG Mean Corpuscular Hemoglobin 31.8 % Concent Red Cell Distribution Width 17.2 % Platelet Count 217 TH/MM3 Mean Platelet Volume 8.2 FL Neutrophils (%) (Auto) 53.8 % Lymphocytes (%) (Auto) 31.4 % Monocytes (%) (Auto) 7.2 % Eosinophils (%) (Auto) 6.4 % Basophils (%) (Auto) 1.2 % Neutrophils # (Auto) 4.0 TH/MM3 Lymphocytes # (Auto) 2.4 TH/MM3 Monocytes # (Auto) 0.5 TH/MM3 Eosinophils # (Auto) 0.5 TH/MM3 Basophils # (Auto) 0.1 TH/MM3 CBC Comment DIFF FINAL Differential Comment Sodium Level 138 MEQ/L Potassium Level 4.2 MEQ/L Chloride Level 111 MEQ/L Carbon Dioxide Level 17.9 MEQ/L Anion Gap 9 MEQ/L Blood Urea Nitrogen 7 MG/DL Creatinine 0.67 MG/DL Estimat Glomerular Filtration 85 ML/MIN Rate Random Glucose 105 MG/DL Calcium Level 7.8 MG/DL Magnesium Level 1.5 MG/DL Total Bilirubin 0.3 MG/DL Aspartate Amino Transf 20 U/L (AST/SGOT) Alanine Aminotransferase 17 U/L (ALT/SGPT) Alkaline Phosphatase 62 U/L Total Creatine Kinase 39 U/L Troponin I LESS THAN 0.02 NG/ML Total Protein 4.4 GM/DL Albumin 1.6 GM/DL Urine Color YELLOW Urine Turbidity CLEAR Urine pH 7.5 Urine Specific [place] 1.013 Urine Protein NEG mg/dL Urine Glucose (UA) NEG mg/dL Urine Ketones NEG mg/dL Urine Occult Blood NEG Urine Nitrite NEG Urine Bilirubin NEG Urine Urobilinogen LESS THAN 2.0 MG/DL Urine Leukocyte Esterase NEG Urine RBC 1 /hpf Urine WBC 2 /hpf Urine Squamous Epithelial <1 /hpf Cells Urine Bacteria RARE /hpf Urine Mucus FEW /lpf Microscopic Urinalysis Comment CULT NOT INDICATED MDM Medical Decision Making Medical Screen Exam Complete: Yes Emergency Medical Condition: Yes Medical Record Reviewed: Yes Interpretation(s) EKG shows NSR, no ST elevation or depression, and no arrhythmias. No significant T-wave inversions. Laboratory Tests Test 02/22/17 02/22/17 13:15 14:30 Mean Corpuscular Hemoglobin 31.8 % Concent (32.0-36.0) Eosinophils (%) (Auto) 6.4 % (0.0-4.0) Eosinophils # (Auto) 0.5 TH/MM3 (0-0.4) Chloride Level 111 MEQ/L (98-107) Carbon Dioxide Level 17.9 MEQ/L (21.0-32.0) Estimat Glomerular Filtration 85 ML/MIN (>89) Rate Calcium Level 7.8 MG/DL (8.5-10.1) Troponin I LESS THAN 0.02 NG/ML (0.02-0.05) Total Protein 4.4 GM/DL (6.4-8.2) Albumin 1.6 GM/DL (3.4-5.0) Urine Bacteria RARE /hpf (NONE) Urine Mucus FEW /lpf (OCC) Last [address] 02/22/17 7116 Signed Impressions: Service Date/Time: Wilver, February 22, 2017 15:06 - CONCLUSION: 1. No acute intracranial abnormality. Jh Hernandez MD Chest X-Ray 02/22/17 1233 Signed Impressions: Service Date/Time: Wednesday, February 22, 2017 12:30 - CONCLUSION: 1. COPD changes with minimal right basilar effusion. Jh Hernandez MD Differential Diagnosis Refusing to eat and drink, weaknessdehydration versus metabolic issues versus sepsis versus worsening dementia versus acute intracranial processes Narrative Course Lab work, CT, and workup was otherwise unremarkable. Vital signs are stable in the ER. Patient is conversant currently. However, family states that she was very disoriented this morning, does not remember the episode, apparently was lethargic and mouth breathing. She was unable to eat or drink for several days according to the family. At this point, my plan would be to admit the patient for observation for further evaluation of this issue. Case was discussed with Dr. Cervantes for admission. Diagnosis Primary Impression: Altered mental status Admitting Information Admitting Physician Requests: Admit Brgiitte Hutchinson MD Feb 22, 2017 12:49
--- NOTE | 2017-02-22 13:04 | RADRPT ---
EXAM DATE/TIME: 02/22/2017 12:30 [facility] COMPARISON: CT THORAX W/O CONTRAST, December 14, 2016, 16:50. CHEST SINGLE AP, December 14, 2016, 11:19. INDICATIONS : Short of breath. MEDICAL HISTORY : Emphysema. SURGICAL HISTORY : None. ENCOUNTER: Initial ACUITY: 1 day PAIN SCORE: 0/10 LOCATION: Bilateral chest FINDINGS: The heart is normal in size. There are COPD changes. There is minimal right basilar effusion. The lar brady of atelectasis seen on previous exam has cleared. There degenerative changes of the shoulders and spine. CONCLUSION: 1. COPD changes with minimal right basilar effusion. Jh Hernandez MD on February 22, 2017 at 12:52 Board Certified Radiologist. This report was verified electronically.
[2017-02-22] MEDS ORDERED: OMEP20TA PO (13:33)
[2017-02-22] MEDS ORDERED: SODI650T PO (13:33)
[2017-02-22] MEDS ORDERED: MEGE20TA PO (13:33)
[2017-02-22] MEDS ORDERED: K-TA10TA PO (13:33)
[2017-02-22 13:39] LABS: BASOPHIL # 0.1 TH/MM3 (0-0.2); BASOPHIL % 1.2 % (0.0-2.0); EOSINOPHIL # 0.5 TH/MM3 (0-0.4); EOSINOPHIL % 6.4 % (0.0-4.0); HEMATOCRIT 39.9 % (35.0-46.0); HEMO FLAGS DIFF FINAL; LYMPH % 31.4 % (9.0-44.0); LYMPHOCYTE # 2.4 TH/MM3 (1.0-4.8); MEAN CELL VOLUME 89.7 FL (80.0-100.0); MEAN CORPUSCULAR HEMOGLOBIN 28.5 PG (27.0-34.0); MEAN CORPUSCULAR HGB CONC 31.8 % (32.0-36.0); MONO % 7.2 % (0.0-8.0); NEUT % 53.8 % (16.0-70.0); PLATELET COUNT 217 TH/MM3 (150-450); RED BLOOD COUNT 4.45 MIL/MM3 (4.00-5.30); RED CELL DISTRIBUTION WIDTH 17.2 % (11.6-17.2); WHITE BLOOD COUNT 7.5 TH/MM3 (4.0-11.0)
[2017-02-22 13:53] LABS: ANION GAP 9 MEQ/L (5-15); AST (GOT) 20 U/L (15-37); BICARBONATE 17.9 MEQ/L (21.0-32.0); BLOOD UREA NITROGEN 7 MG/DL (7-18); CHLORIDE 111 MEQ/L (98-107); GLOMERULAR FILTRATION RATE 85 ML/MIN (>89); MAGNESIUM 1.5 MG/DL (1.5-2.5); POTASSIUM 4.2 MEQ/L (3.5-5.1); SODIUM (NA) 138 MEQ/L (136-145)
[2017-02-22 13:54] LABS: ALT (GPT) 17 U/L (10-53)
[2017-02-22 13:58] LABS: ALKALINE PHOSPHATASE 62 U/L (45-117); CREATINE KINASE 39 U/L (26-192); TOTAL BILIRUBIN ADULT 0.3 MG/DL (0.2-1.0)
[2017-02-22] MEDS ORDERED: ONDANSETRON HCL 4 MG/2 ML VIAL IV PUSH ONE (14:30)
[2017-02-22 15:05] LABS: BACTERIA, URINE RARE /hpf; BLOOD, URINE NEG (NEG); COMMENT (UR) CULT NOT INDICATED; CULTURE IF INDICATED CULT NOT INDICATED; GLUCOSE,URINE NEG (NEG); KETONE, URINE NEG (NEG); MUCUS URINE FEW /lpf (OCC); NITRITE,URINE NEG (NEG); PH, URINE 7.5 (5.0-8.5); SQUAMOUS EPITHELIAL CELL URINE <1 /hpf (0-5); URINE COLOR YELLOW (YELLW/STRAW)
--- NOTE | 2017-02-22 15:34 | RADRPT ---
EXAM DATE/TIME: 02/22/2017 15:06 [facility] COMPARISON: CT BRAIN W/O CONTRAST, November 30, 2016, 22:33. CT THORAX W/O CONTRAST, December 14, 2016, 16:50. INDICATIONS : Weakness RADIATION DOSE: 56.35 CTDIvol (mGy) MEDICAL HISTORY : Cardiovascular disease. Hypertension. SURGICAL HISTORY : Cholecystectomy. ENCOUNTER: Initial ACUITY: 1 day PAIN SCALE: 0/10 LOCATION: cranial TECHNIQUE: Multiple contiguous axial images were obtained of the head. Using automated exposure control and adj ustment of the mA and/or kV according to patient size, radiation dose was kept as low as reasonably a chievable to obtain optimal diagnostic quality images. DICOM format image data is available electro nically for review and comparison. FINDINGS: CEREBRUM: The ventricles are normal for age. No evidence of midline shift, mass lesion, hemorrhage or acute in farction. No extra-axial fluid collections are seen. POSTERIOR FOSSA: The cerebellum and brainstem are intact. The 4th ventricle is midline. The cerebellopontine angle i s unremarkable. EXTRACRANIAL: The visualized portion of the orbits is intact. SKULL: The calvaria is intact. No evidence of skull fracture. CONCLUSION: 1. No acute intracranial abnormality. Jh Hernandez MD on February 22, 2017 at 15:30 Board Certified Radiologist. This report was verified electronically.
--- NOTE | 2017-02-22 16:34 | HHI.HP ---
HPI [facility] Primary Care Physician Daniel Soto MD Admission Diagnosis altered mental status Chief Complaint: Edema Travel History International Travel<30 Days: No Contact w/Intl Traveler <30 Da: No Traveled to Known Affected Are: No History of Present Illness Ms. Shafer is a pleasant 76 y/o WF with HTN, GERD, ulcerative esophagitis, pyloric stenosis and depression. She was recently hospitalized for 3 weeks in -12/22/2016 and was initially hospitalized with a unintentional drug overdose and required intubation with mechanical ventilation. During that admission she had issues with anemia and GIB and was evaluated with EGD on and was found to have pyloric stenosis, gastric ulcers, ulcerative esophagitis, and retained food in the stomach. Pt had a repeat EGD on 12/14/16 noted LA Class C esophagitis, pyloric stenosis, unable to pass scope and was not dilated due to active ulceration in this area and recent bleeding, two ulcers ranging between 3-7mm in size were found in the prepyloric region of the stomach. During that admission she was treated for E. coli UTI and had noted bilateral pleural effusions on CT chest which wasn't clearly pneumonia but given pts pyloric stenosis and previous N/V there was concern for this. Pt was notably depressed and was being followed by Psychiatry throughout the entirety of that admission. Pt was discharged to rehab and was there for 3 weeks and was discharged to home with HHC/PT. I spoke with the pts daughter/HCS, Annita Lovelace, and she reports that the patient has slowly been in decline since her last admission. The pt refused to participate in PT or really move around much at home at all. The pt has reportedly not been eating a lot but has been maintaining her weight. She states that the pt has had some issues with LE edema which has been progressively worsening over the last 3 weeks. She states that the pt was recently started on Sodium Bicarb as an outpt otherwise no new medications. The pts daughter reports that over the last 3 days the pt has been more confused intermittently. Last night this significantly worsened and the pt was up most of the night calling her daughter, Annita, for various reasons and was hallucinating that family members were in the room who had been for several years. Then this morning when Annita arrived to the house the pt was unarousable appeared tachypneic. This prompted her to call emergency services and the pt was brought to the ED for further evaluation. The pts labs at admission were essentially unrevealing but her albumin was low at 1.6 and total protein was low at 4.4. Head CT was negative for any acute changes. CXR noted COPD changes and minimal right basilar effusion. Pt states that she has been eating and daughter confirms that she does eat but does not eat much when she does eat. The pt is notably edematous in the LE in the ED with pitting edema to the upper thighs and her abdomen is distended but soft and the patient states that this is new. Of note, the patients daughter does tell me that she had been entertaining the idea enrolling the patient in Hospice for failure to thrive as the pt has been very resistant to participating in any physical therapy or moving much at all and hasn't been eating very much. Review of Systems Constitutional: DENIES: Fever, Chills Eyes: DENIES: Blurred vision, Vision loss Ears, nose, mouth, throat: DENIES: Hearing loss Respiratory: DENIES: Cough, Sputum production, Shortness of breath Cardiovascular: COMPLAINS OF: Lower Extremity Edema, DENIES: Chest pain, Palpitations, Dyspnea on Exertion, Orthopnea Gastrointestinal: DENIES: Abdominal pain, Constipation, Diarrhea, GERD, Nausea , Vomiting Genitourinary: DENIES: Urinary frequency, Urgency, Hematuria Musculoskeletal: DENIES: Back pain, Neck pain Integumentary: DENIES: Rash Neurologic: DENIES: Headache Psychiatric: COMPLAINS OF: Confusion, Hallucinations Past Family Social History Past Medical History Hypertension Anemia GERD Ulcerative esophagitis Pyloric stenosis Osteopenia Osteoarthritis Vitamin D deficiency Past Surgical History EGD on 12/10/16 --> severe ulcerative esophagitis in the distal esophagus, the stomach was full of old with food and the evaluation was incomplete there were superficial ulcers in the antrum and the pylorus appeared to be severely stenosed biopsies were taken from the antrum and then using a balloon dilator sizes 6,7 and 8 then followed by 03/24/10 postdilatation view was satisfactory but still was not able to pass the scope but no tear noted. EGD on 12/14/16 --> LA Class C esophagitis, pyloric stenosis, unable to pass scope and was not dilated due to active ulceration in this area and recent bleeding, two ulcers ranging between 3-7mm in size were found in the prepyloric region of the stomach. Previous Jackie fundoplication for GERD Previous arthroscopy left knee Left breast lumpectomy Right knee total knee arthroplasty Cholecystectomy Right rotator cuff repair L4-L5 decompressive laminectomy Reported Medications Duloxetine DR 30 Mg PO DAILY Pantoprazole 40 Mg PO Q12HR Lisinopril 20 Mg PO BID Megestrol 20 Mg PO QID K-Tab 20 Meq PO DAILY Sodium Bicarbonate 650 Mg PO BIDPC Metoprolol Tartrate 25 Mg PO BID Allergies: Coded Allergies: Cipro (Unverified Allergy, Severe, THRUSH, 02/22/17) Demerol (Verified Allergy, Severe, Nausea/Vomiting, 02/22/17) Lortab (Verified Allergy, Severe, convulsion, 02/22/17) Morphine (Verified Allergy, Severe, VOMITING, 02/22/17) Percocet (Verified Allergy, Severe, CONVULSION, 02/22/17) Reglan (Verified Adverse Reaction, Intermediate, ANXIETY, 02/22/17) *MDRO Multi-Drug Resistant Organism (Verified Adverse Reaction, Unknown, ) 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) - 02/2015 Family History Noncontributory Social History Hx of tobacco use Denies any alcohol or illicit drug use Physical Exam Vital Signs Vital Signs Date Time Temp Pulse Resp B/P Pulse Ox O2 Delivery O2 Flow Rate FiO2 02/22/17 12:22 98.2 71 20 178/80 98 Physical Exam GENERAL: This is a well-nourished, well-developed patient, in no apparent distress. HEENT: Atraumatic. Normocephalic. No temporal or scalp tenderness. No scleral icterus. Airway patent. NECK: Trachea midline, supple, nontender CARDIO: Regular. RESP: CTA bilaterally. No wheezes, rales, or rhonchi. ABD: +BS, soft, non-tender, distended. EXT: 3+ pitting edema to the upper thighs NEURO: Awake and alert to person, place. Five out of 5 muscle strength in all muscle groups. Laboratory Laboratory Tests Test 02/22/17 02/22/17 13:15 14:30 White Blood Count 7.5 Red Blood Count 4.45 Hemoglobin 12.7 Hematocrit 39.9 Mean Corpuscular Volume 89.7 Mean Corpuscular Hemoglobin 28.5 Mean Corpuscular Hemoglobin 31.8 Concent Red Cell Distribution Width 17.2 Platelet Count 217 Mean Platelet Volume 8.2 Neutrophils (%) (Auto) 53.8 Lymphocytes (%) (Auto) 31.4 Monocytes (%) (Auto) 7.2 Eosinophils (%) (Auto) 6.4 Basophils (%) (Auto) 1.2 Neutrophils # (Auto) 4.0 Lymphocytes # (Auto) 2.4 Monocytes # (Auto) 0.5 Eosinophils # (Auto) 0.5 Basophils # (Auto) 0.1 CBC Comment DIFF FINAL Differential Comment Sodium Level 138 Potassium Level 4.2 Chloride Level 111 Carbon Dioxide Level 17.9 Anion Gap 9 Blood Urea Nitrogen 7 Creatinine 0.67 Estimat Glomerular Filtration 85 Rate Random Glucose 105 Calcium Level 7.8 Magnesium Level 1.5 Total Bilirubin 0.3 Aspartate Amino Transf 20 (AST/SGOT) Alanine Aminotransferase 17 (ALT/SGPT) Alkaline Phosphatase 62 Total Creatine Kinase 39 Troponin I LESS THAN 0.02 Total Protein 4.4 Albumin 1.6 Urine Color YELLOW Urine Turbidity CLEAR Urine pH 7.5 Urine Specific [place] 1.013 Urine Protein NEG Urine Glucose (UA) NEG Urine Ketones NEG Urine Occult Blood NEG Urine Nitrite NEG Urine Bilirubin NEG Urine Urobilinogen LESS THAN 2.0 Urine Leukocyte Esterase NEG Urine RBC 1 Urine WBC 2 Urine Squamous Epithelial <1 Cells Urine Bacteria RARE Urine Mucus FEW Microscopic Urinalysis Comment CULT NOT INDICATED Result Diagram: 02/22/17 1315 02/22/17 1315 Imaging Last Impressions Head CT 02/22/17 1236 Signed Impressions: Service Date/Time: Wednesday, February 22, 2017 15:06 - CONCLUSION: 1. No acute intracranial abnormality. Jh Hernandez MD Chest X-Ray 02/22/17 1233 Signed Impressions: Service Date/Time: Wednesday, February 22, 2017 12:30 - CONCLUSION: 1. COPD changes with minimal right basilar effusion. Jh Hernandez MD Septic Shock Reassessment Heart: Regular rate and rhythm Lungs: Clear Skin: Warm Assessment and Plan Problem List: (1) Failure to thrive in adult Status: Chronic Plan: - Ms. Shafer is a pleasant 76 y/o WF with HTN, GERD, ulcerative esophagitis , pyloric stenosis and depression. - She was recently hospitalized for 3 weeks in -12/22/2016 and per the pts daughter, Annita, the patient has slowly been in decline since her last admission. The pt refuses to participate in PT or really move around much at home at all. The pt has reportedly not been eating a lot but has been maintaining her weight. - She has noted significant edema in bilateral LE and abdominal distension at admission and pts daughter states that this has been progressively worsening over the last 3 weeks. - The pts daughter reports that over the last 3 days the pt has been more confused intermittently then last night this significantly worsened and the pt was up most of the night calling her daughter , Annita, for various reasons and was hallucinating that family members were in the room who had been for several years. - Then this morning when Annita arrived to the house the pt was unarousable appeared tachypneic. - The pts labs at admission were essentially unrevealing but her albumin was low at 1.6 and total protein was low at 4.4. - Head CT was negative for any acute changes. - CXR noted COPD changes and minimal right basilar effusion. - Pt states that she has been eating and daughter confirms that she does eat but does not eat much when she does eat. - Her previous 2D echo in 11/2016 noted EF 55-60%, mild mitral regurg and mild tricuspid regurg - We will start the pt on Lasix 20mg IV BID and Albumin 25grams BID - Place Araiza catheter - Monitor labs closely and replace electrolyte should that be necessary - Check Abd US for the noted abdominal distension and assess for possible ascites. - Check TSH/Free T4, B12 level, Folate level - No signs of infection at admission, WBC count normal, pt is afebrile - Supportive care - Further recommendations as the case develops - The patients daughter does tell me that she had been entertaining the idea enrolling the patient in Hospice for failure to thrive as the pt has been very resistant to participating in any physical therapy or moving much at all and hasn't been eating very much. - Pt had been a no code DNR during her last admission and pt wises to continue this. This was discussed with the pts daughter as well and she confirms that this is her mothers wishes. (2) Edema Status: Acute Plan: - See above. - This may be more of a dependent edema related to malnutrition/immobility but will r/o other causes. - Daily weight - Monitor I&Os closely during diuresis (3) Altered mental status Status: Acute Plan: - See above. - Pt currently alert and oriented to self and place and is able to tell me its 2017 - She has hx of depression and takes Cymbalta. No new changes in this med per the daughter. - Further workup as above. (4) HTN (hypertension) Status: Chronic Plan: - Cont. home meds - monitor (5) PUD (peptic ulcer disease) Status: Chronic Plan: - Protonix 40mg IV BID - Zofran PRN (6) Depression Status: Chronic Plan: - Cont. home meds (7) GERD (gastroesophageal reflux disease) Status: Chronic (8) COPD (chronic obstructive pulmonary disease) Status: Chronic Plan: - Duonebs PRN Assessment and Plan Patient examined. Assessment and plan formulated with Leidy See PA-C. I agree with the above. ftt/malnutrition. ams resolved. anasarca. iv albumen/lasix. Problem Qualifiers (1) Altered mental status: Qualified Code: R41.0 - Disorientation Leidy See Feb 22, 2017 16:34 Stevenson Cervantes MD Feb 22, 2017 18:48
[2017-02-22] MEDS ORDERED: ACETAMINOPHEN 325 MG TAB PO PRN (17:00)
[2017-02-22] MEDS ORDERED: ONDANSETRON HCL 4 MG/2 ML VIAL IV PRN (17:00)
[2017-02-22 17:06] VITALS: BP 172/82; PULSE 78; RESP 20; O2SAT 98
[2017-02-22] MEDS: MEGESTROL ACETATE 40 MG TAB PO SCH ×2 (18:00→21:45)
[2017-02-22 18:17] LABS: APTT (PATIENT) 21.6 SEC (24.3-30.1); PROTHROMBIN TIME - PATIENT 11.4 SEC (9.8-11.6)
[2017-02-22] MEDS ORDERED: RESP: ALBUTEROL 2.5 MG/IPRATROPIUM 0.5 MG NEB (PRN) NEB (18:30)
[2017-02-22] MEDS ORDERED: PILL SPLITTER OTHER PRN (18:30)
[2017-02-22] MEDS: FUROSEMIDE 20 MG/2 ML VIAL IV PUSH SCH (19:11)
[2017-02-22 20:00] LABS: FREE T4 1.25 NG/DL (0.76-1.46)
[2017-02-22] MEDS: PANTOPRAZOLE SODIUM 40 MG VIAL IV PUSH SCH (20:00)
--- NOTE | 2017-02-22 20:01 | RADRPT ---
EXAM DATE/TIME: 02/22/2017 17:55 [place] COMPARISON: CT THORAX W/O CONTRAST, December 14, 2016, 16:50. INDICATIONS : Abdominal distention. MEDICAL HISTORY : Hypertension. Gastroesophageal reflux disease. Arthritis. Hyperthyroidism. Dizziness. Hernia, hiata l. Kidney stones. Urinary tract infections. Anxiety. SURGICAL HISTORY : Cholecystectomy. Mastectomy, left. Total knee replacement, right. Bilateral rotator cuff repair. ENCOUNTER: Initial ACUITY: 1 day PAIN SCORE: 9/10 LOCATION: Bilateral abdomen. MEASUREMENTS: LIVER: 14.8 cm length COMMON DUCT: 3 mm RIGHT KIDNEY: 8.0 x 3.9 x 3.4 cm LEFT KIDNEY: 8.0 x 4.2 x 3.7 cm SPLEEN: 7.2 cm length AORTA: 1.9cm maximal FINDINGS: LIVER: The liver is small and echogenic with moderate ascites and pleural effusions. The liver is inhomogen eous. COMMON DUCT: No intraluminal mass or stone visualized. GALLBLADDER: Not visualized PANCREAS: Poorly visualized RIGHT KIDNEY: Small and echogenic LEFT KIDNEY: Small and echogenic SPLEEN: No focal lesion. AORTA: Non aneurysmal. IVC: Within normal limits. CONCLUSION: Small isodense liver with ascites and pleural effusions. Small echogenic kidneys without obstruction . Castillo Hernandez MD FACR on February 22, 2017 at 19:58 Board Certified Radiologist. This report was verified electronically.
[2017-02-22] MEDS ORDERED: PANTOPRAZOLE SOD 40 MG DELAYED RELEASE TAB PO SCH (21:00)
[2017-02-22 21:40] VITALS: BP 162/110; PULSE 97; RESP 18; TEMP 97.9; O2SAT 96
[2017-02-22] MEDS: METOPROLOL TARTRATE 25 MG TAB PO SCH (21:45)
[2017-02-22] MEDS: ALBUMIN HUMAN 25% 25 GM/100 ML BAGP IV SCH (21:45)
[2017-02-22] MEDS: LISINOPRIL 20 MG TAB PO SCH (21:46)
[2017-02-22 22:15] VITALS: BP 152/90
[2017-02-23] VITALS (7 sets, daily range): BP systolic 133–178; BP diastolic 62–89; PULSE 75–99; RESP 16–20; TEMP 97.9–99.4; O2SAT 97–100
[2017-02-23 06:34] LABS: AUTOMATED NEUTROPHIL # 4.5 TH/MM3 (1.8-7.7); BASOPHIL # 0.1 TH/MM3 (0-0.2); BASOPHIL % 0.6 % (0.0-2.0); EOSINOPHIL # 0.4 TH/MM3 (0-0.4); HEMATOCRIT 30.2 % (35.0-46.0); HEMO FLAGS DIFF FINAL; LYMPHOCYTE # 2.3 TH/MM3 (1.0-4.8); MEAN CELL VOLUME 87.2 FL (80.0-100.0); MEAN CORPUSCULAR HEMOGLOBIN 28.9 PG (27.0-34.0); MEAN CORPUSCULAR HGB CONC 33.2 % (32.0-36.0); NEUT % 58.4 % (16.0-70.0); PLATELET COUNT 288 TH/MM3 (150-450); RED BLOOD COUNT 3.46 MIL/MM3 (4.00-5.30); RED CELL DISTRIBUTION WIDTH 16.7 % (11.6-17.2); WHITE BLOOD COUNT 7.8 TH/MM3 (4.0-11.0)
[2017-02-23 06:38] LABS: MAGNESIUM 1.5 MG/DL (1.5-2.5); POTASSIUM 3.8 MEQ/L (3.5-5.1)
[2017-02-23] MEDS: MEGESTROL ACETATE 40 MG TAB PO SCH ×5 (08:19→22:40)
[2017-02-23] MEDS: DULoxetine HCl DR 30 MG CAP PO SCH (08:20)
[2017-02-23] MEDS: FUROSEMIDE 20 MG/2 ML VIAL IV PUSH SCH ×2 (08:20→18:52)
[2017-02-23] MEDS: LISINOPRIL 20 MG TAB PO SCH ×2 (08:20→22:42)
[2017-02-23] MEDS: METOPROLOL TARTRATE 25 MG TAB PO SCH ×2 (08:20→22:43)
[2017-02-23] MEDS: PANTOPRAZOLE SODIUM 40 MG VIAL IV PUSH SCH (08:21)
[2017-02-23] MEDS: ALBUMIN HUMAN 25% 25 GM/100 ML BAGP IV SCH (08:22)
--- NOTE | 2017-02-23 11:33 | HHI.PR ---
Subjective Remarks Pt lying in bed, resting, says she "just wants to sleep" Nurse reports that PT got her up this morning and she was very unsteady Pt has about 1800cc of urine in [place] bag which is from overnight and this morning. Pt has not been weighed yet today Pt reportedly did not eat breakfast. Objective Vitals Vital Signs Date Time Temp Pulse Resp B/P Pulse Ox O2 Delivery O2 Flow Rate FiO2 02/23/17 07:48 99.2 99 18 178/86 98 02/23/17 04:49 98.0 75 18 158/89 99 02/23/17 01:06 98.1 75 18 148/70 98 02/22/17 23:17 18 02/22/17 22:15 152/90 02/22/17 21:40 97.9 97 18 162/110 96 02/22/17 17:06 78 20 172/82 98 Room Air 02/22/17 12:22 98.2 71 20 178/80 98 02/22/17 02/22/17 02/23/17 14:59 22:59 06:59 Output Total 300 ml 550 ml Balance -300 ml -550 ml Output Urine Total 300 ml 550 ml # Voids 1 Result Diagram: 02/23/17 0546 02/23/17 0546 Other Results Laboratory Tests Test 02/22/17 02/22/17 02/22/17 02/23/17 13:15 14:30 16:54 05:46 White Blood Count 7.5 TH/MM3 7.8 TH/MM3 Red Blood Count 4.45 MIL/MM3 3.46 MIL/MM3 Hemoglobin 12.7 GM/DL 10.0 GM/DL Hematocrit 39.9 % 30.2 % Mean Corpuscular Volume 89.7 FL 87.2 FL Mean Corpuscular Hemoglobin 28.5 PG 28.9 PG Mean Corpuscular Hemoglobin 31.8 % 33.2 % Concent Red Cell Distribution Width 17.2 % 16.7 % Platelet Count 217 TH/MM3 288 TH/MM3 Mean Platelet Volume 8.2 FL 8.2 FL Neutrophils (%) (Auto) 53.8 % 58.4 % Lymphocytes (%) (Auto) 31.4 % 29.0 % Monocytes (%) (Auto) 7.2 % 7.0 % Eosinophils (%) (Auto) 6.4 % 5.0 % Basophils (%) (Auto) 1.2 % 0.6 % Neutrophils # (Auto) 4.0 TH/MM3 4.5 TH/MM3 Lymphocytes # (Auto) 2.4 TH/MM3 2.3 TH/MM3 Monocytes # (Auto) 0.5 TH/MM3 0.5 TH/MM3 Eosinophils # (Auto) 0.5 TH/MM3 0.4 TH/MM3 Basophils # (Auto) 0.1 TH/MM3 0.1 TH/MM3 CBC Comment DIFF FINAL DIFF FINAL Differential Comment Sodium Level 138 MEQ/L 139 MEQ/L Potassium Level 4.2 MEQ/L 3.8 MEQ/L Chloride Level 111 MEQ/L 109 MEQ/L Carbon Dioxide Level 17.9 MEQ/L 20.0 MEQ/L Anion Gap 9 MEQ/L 10 MEQ/L Blood Urea Nitrogen 7 MG/DL 8 MG/DL Creatinine 0.67 MG/DL 0.48 MG/DL Estimat Glomerular Filtration 85 ML/MIN 125 ML/MIN Rate Random Glucose 105 MG/DL 89 MG/DL Calcium Level 7.8 MG/DL 7.6 MG/DL Magnesium Level 1.5 MG/DL 1.5 MG/DL Total Bilirubin 0.3 MG/DL Aspartate Amino Transf 20 U/L (AST/SGOT) Alanine Aminotransferase 17 U/L (ALT/SGPT) Alkaline Phosphatase 62 U/L Total Creatine Kinase 39 U/L Troponin I LESS THAN 0.02 NG/ML Total Protein 4.4 GM/DL Albumin 1.6 GM/DL Vitamin B12 Level 557 PG/ML Folate 15.2 NG/ML Free Thyroxine 1.25 NG/DL Thyroid Stimulating Hormone 2.050 uIU/ML 3rd Gen Urine Color YELLOW Urine Turbidity CLEAR Urine pH 7.5 Urine Specific [place] 1.013 Urine Protein NEG mg/dL Urine Glucose (UA) NEG mg/dL Urine Ketones NEG mg/dL Urine Occult Blood NEG Urine Nitrite NEG Urine Bilirubin NEG Urine Urobilinogen LESS THAN 2.0 MG/DL Urine Leukocyte Esterase NEG Urine RBC 1 /hpf Urine WBC 2 /hpf Urine Squamous Epithelial <1 /hpf Cells Urine Bacteria RARE /hpf Urine Mucus FEW /lpf Microscopic Urinalysis Comment CULT NOT INDICATED Prothrombin Time 11.4 SEC Prothromb Time International 1.0 RATIO Ratio Activated Partial 21.6 SEC Thromboplast Time Imaging Last Impressions Head CT 02/22/17 1236 Signed Impressions: Service Date/Time: Wednesday, February 22, 2017 15:06 - CONCLUSION: 1. No acute intracranial abnormality. Jh Hernandez MD Chest X-Ray 02/22/17 1233 Signed Impressions: Service Date/Time: Wednesday, February 22, 2017 12:30 - CONCLUSION: 1. COPD changes with minimal right basilar effusion. Jh Hernandez MD Abdomen Ultrasound 02/22/17 0000 Signed Impressions: Service Date/Time: Wednesday, February 22, 2017 17:55 - CONCLUSION: Small isodense liver with ascites and pleural effusions. Small echogenic kidneys without obstruction. 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 Shafer is a pleasant 76 y/o WF with HTN, GERD, ulcerative esophagitis , pyloric stenosis and depression. - She was recently hospitalized for 3 weeks in -12/22/2016 and per the pts daughter, Annita, the patient has slowly been in decline since her last admission. The pt refuses to participate in PT or really move around much at home at all. The pt has reportedly not been eating a lot but has been maintaining her weight. - She has noted significant edema in bilateral LE and abdominal distension at admission and pts daughter states that this has been progressively worsening over the last 3 weeks. - The pts daughter reports that over the last 3 days the pt has been more confused intermittently then last night this significantly worsened and the pt was up most of the night calling her daughter , Annita, for various reasons and was hallucinating that family members were in the room who had been for several years. - Then this morning when Annita arrived to the house the pt was unarousable appeared tachypneic. - The pts labs at admission were essentially unrevealing but her albumin was low at 1.6 and total protein was low at 4.4. - Head CT was negative for any acute changes. - CXR noted COPD changes and minimal right basilar effusion. - Pt states that she has been eating and daughter confirms that she does eat but does not eat much when she does eat. - Pt has been refusing to eat so far during this admission. She states that she has no appetite. - Her previous 2D echo in 11/2016 noted EF 55-60%, mild mitral regurg and mild tricuspid regurg - Repeat 2D echo ordered - Cont. Lasix 20mg IV BID and Albumin 25grams BID prior to Lasix administration - Monitor labs closely and replace electrolyte should that be necessary - Abd US --> Small isodense liver with ascites and pleural effusions. Small echogenic kidneys without obstruction. No reported hx of liver cirrhosis - TSH/Free T4, B12 level, Folate level all WNL - No signs of infection at admission, WBC count normal, pt is afebrile - Supportive care - Pt refuses to go to SNF. - Cont. with diuresis. Await 2D echo. Pt with no known liver disease. - Pt refusing to eat. She is not a candidate for PEG tube with the ascites. - The patients daughter does tell me that she had been entertaining the idea enrolling the patient in Hospice for failure to thrive as the pt has been very resistant to participating in any physical therapy or moving much at all and hasn't been eating very much. - Pt had been a no code DNR during her last admission and pt wises to continue this. This was discussed with the pts daughter as well and she confirms that this is her mothers wishes. (2) Edema Status: Acute Plan: - See above. - This may be more of a dependent edema related to malnutrition/immobility but will r/o other causes. - Daily weight - Monitor I&Os closely during diuresis (3) Altered mental status Status: Acute Plan: - See above. - Pt currently alert and oriented to self and place and is able to tell me its 2017 - She has hx of depression and takes Cymbalta. No new changes in this med per the daughter. - Further workup as above. (4) HTN (hypertension) Status: Chronic Plan: - Cont. home meds - monitor (5) PUD (peptic ulcer disease) Status: Chronic Plan: - Protonix 40mg IV BID - Zofran PRN (6) Depression Status: Chronic Plan: - Cont. home meds (7) GERD (gastroesophageal reflux disease) Status: Chronic (8) COPD (chronic obstructive pulmonary disease) Status: Chronic Plan: - Duonebs PRN Assessment and Plan Patient examined. Assessment and plan formulated with Leidy See PA-C. I agree with the above. ftt. not eating. malnutrition. iv lasix and albumen. Problem Qualifiers (1) Altered mental status: Qualified Code: R41.0 - Disorientation Leidy See Feb 23, 2017 11:33 Stevenson Cervantes MD Feb 23, 2017 16:00
--- NOTE | 2017-02-23 11:42 | EKG ---
Date Performed: 02/22/2017 Time Performed: 13:14:10 PTAGE: 76 years EKG: Sinus rhythm LOW QRS VOLTAGE ABNORMAL ECG PREVIOUS TRACING : 11/30/2016 15.47 Low limb lead voltage is new compared to the prior tracing. DOCTOR: Chase Camacho Interpretating Date/Time 02/23/2017 11:40:25
[2017-02-23] MEDS: ONDANSETRON HCL 4 MG/2 ML VIAL IV PRN (18:54)
[2017-02-23] MEDS ORDERED: LOPERAMIDE HCL 2 MG CAP PO PRN (23:00)
[2017-02-23] MEDS ORDERED: LOPERAMIDE HCL 2 MG CAP PO ONE (23:00)
[2017-02-24] MEDS: PANTOPRAZOLE SODIUM 40 MG VIAL IV PUSH SCH ×3 (01:11→21:42)
[2017-02-24] MEDS: ONDANSETRON HCL 4 MG/2 ML VIAL IV PRN ×3 (01:12→21:47)
[2017-02-24] MEDS: ALBUMIN HUMAN 25% 25 GM/100 ML BAGP IV SCH ×2 (01:42→08:34)
[2017-02-24 02:02] LABS: C. DIFF EPI 027 PRESUMPTIVE NEGATIVE (NEGATIVE); C. DIFF TOXIN PCR NEGATIVE (NEGATIVE)
[2017-02-24 05:21] VITALS: BP 162/73; PULSE 85; RESP 16; TEMP 99.2; O2SAT 97
[2017-02-24 08:03] VITALS: BP 153/72; PULSE 81; RESP 16; TEMP 99; O2SAT 98
[2017-02-24] MEDS: FUROSEMIDE 20 MG/2 ML VIAL IV PUSH SCH ×2 (09:00→11:12)
[2017-02-24 09:11] LABS: AUTOMATED NEUTROPHIL # 4.7 TH/MM3 (1.8-7.7); BASOPHIL % 0.5 % (0.0-2.0); EOSINOPHIL # 0.4 TH/MM3 (0-0.4); EOSINOPHIL % 5.6 % (0.0-4.0); HEMATOCRIT 27.1 % (35.0-46.0); HEMO FLAGS DIFF FINAL; LYMPH % 22.1 % (9.0-44.0); LYMPHOCYTE # 1.6 TH/MM3 (1.0-4.8); MEAN CELL VOLUME 85.6 FL (80.0-100.0); MEAN CORPUSCULAR HEMOGLOBIN 28.9 PG (27.0-34.0); MEAN CORPUSCULAR HGB CONC 33.8 % (32.0-36.0); MONO % 7.7 % (0.0-8.0); NEUT % 64.1 % (16.0-70.0); PLATELET COUNT 282 TH/MM3 (150-450); RED BLOOD COUNT 3.17 MIL/MM3 (4.00-5.30); WHITE BLOOD COUNT 7.4 TH/MM3 (4.0-11.0)
[2017-02-24 09:54] LABS: BICARBONATE 23.4 MEQ/L (21.0-32.0); MAGNESIUM 1.5 MG/DL (1.5-2.5)
[2017-02-24 10:09] LABS: POTASSIUM 2.8 MEQ/L (3.5-5.1)
--- NOTE | 2017-02-24 10:30 | HHI.PR ---
Subjective Remarks Pt had diarrhea several times last night. Stools were checked for C. diff and were negative. Pt has not been out of bed. She states that she just wants to sleep She does not like the food here. Reports that she drank two ensures yesterday. She had out 1000mL of overnight and currently with 400cc in [place] bag. She had out 3900cc of urine yesterday. Objective Vitals Vital Signs Date Time Temp Pulse Resp B/P Pulse Ox O2 Delivery O2 Flow Rate FiO2 02/24/17 08:03 99.0 81 16 153/72 98 02/24/17 05:21 99.2 85 16 162/73 97 02/23/17 23:59 99.4 91 16 153/77 99 02/23/17 20:43 97.9 86 17 178/74 97 02/23/17 16:48 99.4 80 20 133/62 100 02/23/17 11:19 99.0 77 18 162/74 98 02/23/17 02/23/17 02/24/17 15:00 23:00 07:00 Output Total 3000 ml 900 ml 1000 ml Balance -3000 ml -900 ml -1000 ml Output Urine Total 3000 ml 900 ml 1000 ml Result Diagram: 02/24/17 0703 02/24/17 0703 Other Results Laboratory Tests Test 02/22/17 02/22/17 02/22/17 02/23/17 13:15 14:30 16:54 05:46 White Blood Count 7.5 TH/MM3 7.8 TH/MM3 Red Blood Count 4.45 MIL/MM3 3.46 MIL/MM3 Hemoglobin 12.7 GM/DL 10.0 GM/DL Hematocrit 39.9 % 30.2 % Mean Corpuscular Volume 89.7 FL 87.2 FL Mean Corpuscular Hemoglobin 28.5 PG 28.9 PG Mean Corpuscular Hemoglobin 31.8 % 33.2 % Concent Red Cell Distribution Width 17.2 % 16.7 % Platelet Count 217 TH/MM3 288 TH/MM3 Mean Platelet Volume 8.2 FL 8.2 FL Neutrophils (%) (Auto) 53.8 % 58.4 % Lymphocytes (%) (Auto) 31.4 % 29.0 % Monocytes (%) (Auto) 7.2 % 7.0 % Eosinophils (%) (Auto) 6.4 % 5.0 % Basophils (%) (Auto) 1.2 % 0.6 % Neutrophils # (Auto) 4.0 TH/MM3 4.5 TH/MM3 Lymphocytes # (Auto) 2.4 TH/MM3 2.3 TH/MM3 Monocytes # (Auto) 0.5 TH/MM3 0.5 TH/MM3 Eosinophils # (Auto) 0.5 TH/MM3 0.4 TH/MM3 Basophils # (Auto) 0.1 TH/MM3 0.1 TH/MM3 CBC Comment DIFF FINAL DIFF FINAL Differential Comment Sodium Level 138 MEQ/L 139 MEQ/L Potassium Level 4.2 MEQ/L 3.8 MEQ/L Chloride Level 111 MEQ/L 109 MEQ/L Carbon Dioxide Level 17.9 MEQ/L 20.0 MEQ/L Anion Gap 9 MEQ/L 10 MEQ/L Blood Urea Nitrogen 7 MG/DL 8 MG/DL Creatinine 0.67 MG/DL 0.48 MG/DL Estimat Glomerular Filtration 85 ML/MIN 125 ML/MIN Rate Random Glucose 105 MG/DL 89 MG/DL Calcium Level 7.8 MG/DL 7.6 MG/DL Magnesium Level 1.5 MG/DL 1.5 MG/DL Total Bilirubin 0.3 MG/DL Aspartate Amino Transf 20 U/L (AST/SGOT) Alanine Aminotransferase 17 U/L (ALT/SGPT) Alkaline Phosphatase 62 U/L Total Creatine Kinase 39 U/L Troponin I LESS THAN 0.02 NG/ML Total Protein 4.4 GM/DL Albumin 1.6 GM/DL Vitamin B12 Level 557 PG/ML Folate 15.2 NG/ML Free Thyroxine 1.25 NG/DL Thyroid Stimulating Hormone 2.050 uIU/ML 3rd Gen Urine Color YELLOW Urine Turbidity CLEAR Urine pH 7.5 Urine Specific [place] 1.013 Urine Protein NEG mg/dL Urine Glucose (UA) NEG mg/dL Urine Ketones NEG mg/dL Urine Occult Blood NEG Urine Nitrite NEG Urine Bilirubin NEG Urine Urobilinogen LESS THAN 2.0 MG/DL Urine Leukocyte Esterase NEG Urine RBC 1 /hpf Urine WBC 2 /hpf Urine Squamous Epithelial <1 /hpf Cells Urine Bacteria RARE /hpf Urine Mucus FEW /lpf Microscopic Urinalysis Comment CULT NOT INDICATED Prothrombin Time 11.4 SEC Prothromb Time International 1.0 RATIO Ratio Activated Partial 21.6 SEC Thromboplast Time Test 02/24/17 02/24/17 00:55 07:03 Stool C. difficile Toxin (PCR) NEGATIVE Stl C. difficile Toxin PRESUMPTIVE Epiderm 027 NEGATIVE White Blood Count 7.4 TH/MM3 Red Blood Count 3.17 MIL/MM3 Hemoglobin 9.2 GM/DL Hematocrit 27.1 % Mean Corpuscular Volume 85.6 FL Mean Corpuscular Hemoglobin 28.9 PG Mean Corpuscular Hemoglobin 33.8 % Concent Red Cell Distribution Width 17.0 % Platelet Count 282 TH/MM3 Mean Platelet Volume 8.1 FL Neutrophils (%) (Auto) 64.1 % Lymphocytes (%) (Auto) 22.1 % Monocytes (%) (Auto) 7.7 % Eosinophils (%) (Auto) 5.6 % Basophils (%) (Auto) 0.5 % Neutrophils # (Auto) 4.7 TH/MM3 Lymphocytes # (Auto) 1.6 TH/MM3 Monocytes # (Auto) 0.6 TH/MM3 Eosinophils # (Auto) 0.4 TH/MM3 Basophils # (Auto) 0.0 TH/MM3 CBC Comment DIFF FINAL Differential Comment Sodium Level 137 MEQ/L Potassium Level 2.8 MEQ/L Chloride Level 103 MEQ/L Carbon Dioxide Level 23.4 MEQ/L Anion Gap 11 MEQ/L Blood Urea Nitrogen 7 MG/DL Creatinine 0.47 MG/DL Estimat Glomerular Filtration 128 ML/MIN Rate Random Glucose 86 MG/DL Calcium Level 8.0 MG/DL Magnesium Level 1.5 MG/DL Imaging Last Impressions Head CT 02/22/17 1236 Signed Impressions: Service Date/Time: Wednesday, February 22, 2017 15:06 - CONCLUSION: 1. No acute intracranial abnormality. Jh Hernandez MD Chest X-Ray 02/22/17 1233 Signed Impressions: Service Date/Time: Wednesday, February 22, 2017 12:30 - CONCLUSION: 1. COPD changes with minimal right basilar effusion. Jh Hernandez MD Abdomen Ultrasound 02/22/17 0000 Signed Impressions: Service Date/Time: Wednesday, February 22, 2017 17:55 - CONCLUSION: Small isodense liver with ascites and pleural effusions. Small echogenic kidneys without obstruction. 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 Shafer is a pleasant 76 y/o WF with HTN, GERD, ulcerative esophagitis , pyloric stenosis and depression. - She was recently hospitalized for 3 weeks in -12/22/2016 and per the pts daughter, Annita, the patient has slowly been in decline since her last admission. The pt refuses to participate in PT or really move around much at home at all. The pt has reportedly not been eating a lot but has been maintaining her weight. - She has noted significant edema in bilateral LE and abdominal distension at admission and pts daughter states that this has been progressively worsening over the last 3 weeks. - The pts daughter reports that over the last 3 days the pt has been more confused intermittently then last night this significantly worsened and the pt was up most of the night calling her daughter , Annita, for various reasons and was hallucinating that family members were in the room who had been for several years. - Then this morning when Annita arrived to the house the pt was unarousable appeared tachypneic. - The pts labs at admission were essentially unrevealing but her albumin was low at 1.6 and total protein was low at 4.4. - Head CT was negative for any acute changes. - CXR noted COPD changes and minimal right basilar effusion. - Pt states that she has been eating and daughter confirms that she does eat but does not eat much when she does eat. - Pt has been refusing to eat so far during this admission. She states that she has no appetite. - Her previous 2D echo in 11/2016 noted EF 55-60%, mild mitral regurg and mild tricuspid regurg - Repeat 2D echo ordered - Cont. Lasix 20mg IV BID and Albumin 25grams BID prior to Lasix administration - Monitor labs closely and replace electrolytes - Abd US --> Small isodense liver with ascites and pleural effusions. Small echogenic kidneys without obstruction. No reported hx of liver cirrhosis - TSH/Free T4, B12 level, Folate level all WNL - No signs of infection at admission, WBC count normal, pt is afebrile - Supportive care - Pt refuses to go to SNF. - Cont. with diuresis. Pt has been diuresing well. Await 2D echo. Pt with no known liver disease. - Pt refusing to eat. She is not a candidate for PEG tube with the ascites. - The patients daughter does tell me that she had been entertaining the idea enrolling the patient in Hospice for failure to thrive as the pt has been very resistant to participating in any physical therapy or moving much at all and hasn't been eating very much. - Pt had been a no code DNR during her last admission and pt wises to continue this. This was discussed with the pts daughter as well and she confirms that this is her mothers wishes. (2) Edema Status: Acute Plan: - See above. - This may be more of a dependent edema related to malnutrition/immobility but will r/o other causes. - Daily weight - Monitor I&Os closely during diuresis (3) Altered mental status Status: Acute Plan: - See above. - Pt currently alert and oriented to self and place and is able to tell me its 2017 - She has hx of depression and takes Cymbalta. No new changes in this med per the daughter. - Further workup as above. (4) HTN (hypertension) Status: Chronic Plan: - Cont. home meds - monitor (5) PUD (peptic ulcer disease) Status: Chronic Plan: - Protonix 40mg IV BID - Zofran PRN (6) Depression Status: Chronic Plan: - Cont. home meds (7) GERD (gastroesophageal reflux disease) Status: Chronic (8) COPD (chronic obstructive pulmonary disease) Status: Chronic Plan: - Duonebs PRN Assessment and Plan Patient examined. Assessment and plan formulated with Leidy See PA-C. diuresed well. anasarca and malnutrition. FTT pt family wants hospice. I would lean away from feeding tube. d/c tomorrow once kcl replaced and hospice arranged. Problem Qualifiers (1) Altered mental status: Qualified Code: R41.0 - Disorientation Leidy See Feb 24, 2017 10:30 Stevenson Cervantes MD Feb 24, 2017 16:29
[2017-02-24] MEDS: LISINOPRIL 20 MG TAB PO SCH ×2 (11:10→21:43)
[2017-02-24] MEDS: DULoxetine HCl DR 30 MG CAP PO SCH (11:10)
[2017-02-24] MEDS: MEGESTROL ACETATE 40 MG TAB PO SCH ×4 (11:11→21:43)
[2017-02-24] MEDS: METOPROLOL TARTRATE 25 MG TAB PO SCH ×2 (11:11→21:42)
[2017-02-24 11:47] VITALS: BP 134/60; PULSE 84; RESP 16; TEMP 98.8; O2SAT 96
[2017-02-24] MEDS ORDERED: POTASSIUM CHLORIDE 10 MEQ CAP PO SCH ×2 (12:00)
[2017-02-24] MEDS ORDERED: POTASSIUM CHLORIDE 10 MEQ CONTROLLED RELEASE TAB PO ONE ×2 (12:45→17:00)
--- NOTE | 2017-02-24 14:26 | HHI.DCPOC ---
Discharge Care Plan Diagnosis: (1) Failure to thrive in adult (2) HTN (hypertension) (3) GERD (gastroesophageal reflux disease) (4) Altered mental status (5) PUD (peptic ulcer disease) (6) Edema (7) Depression (8) COPD (chronic obstructive pulmonary disease) Goals to Promote Your Health * To prevent worsening of your condition and complications * To maintain your health at the optimal level Directions to Meet Your Goals Take your medications as prescribed Follow your dietary instruction Follow activity as directed Keep your appointments as scheduled Take your immunizations and boosters as scheduled If your symptoms worsen call your PCP, if no PCP go to Urgent Care Center or Emergency Room Smoking is Dangerous to Your Health. Avoid second hand smoke Call the 24-hour hour crisis hotline for domestic abuse at Leidy See Feb 24, 2017 14:26
[2017-02-24 15:53] VITALS: BP 133/62; PULSE 90; RESP 18; TEMP 98.2; O2SAT 99
[2017-02-24 18:54] LABS: BICARBONATE 23.8 MEQ/L (21.0-32.0)
--- NOTE | 2017-02-24 19:24 | ECHRPT ---
Indication: HEART FAILURE CONCLUSIONS Small LV chamber. Normal LV function. Normal wall motion with no abnormalities. The left ventricular systolic function is normal with an estimated ejection fraction in the range of 55-60% Moderate mitral annular calcification. Moderate thickening of the mitral valve leaflets. Trace mitral valve regurgitation. RA density of unclear significance, consider HAYLEY to evaluate. BP: 178 / 86 HR: 99 Rhythm: Sinus MEASUREMENTS (Male / Female) Normal Values Technical Quality:Fair 2D ECHO LV Diastolic Diameter PLAX 3.1 cm 4.2 - 5.9 / 3.9 - 5.3 cm LV Systolic Diameter PLAX 2.3 cm IVS Diastolic Thickness 0.7 cm 0.6 - 1.0 / 0.6 - 0.9 cm LVPW Diastolic Thickness 0.7 cm 0.6 - 1.0 / 0.6 - 0.9 cm LV Relative Wall Thickness 0.4 LVOT Diameter 1.5 cm Aortic Root Diameter 2.8 cm LA Systolic Diameter LX 2.8 cm 3.0 - 4.0 / 2.7 - 3.8 cm M-MODE AV Cusp Separation MM 1.8 cm DOPPLER TR Peak Velocity 351.0 cm/s TR Peak Gradient 49.3 mmHg PV Peak Velocity 81.2 cm/s PV Peak Gradient 2.6 mmHg FINDINGS LEFT VENTRICLE Small LV chamber. Normal LV function. The left ventricular systolic function is normal with an estimated ejection fraction in the range of 55-60%. Normal wall motion with no abnormalities. MITRAL VALVE moderate mitral annular calcification. oderate thickening of the mitral valve leaflets. Trace mitral valve regurgitation. Aida Barraza MD, FACC (Electronically Signed) Final Date:24 February 2017 19:23
[2017-02-24 21:40] VITALS: BP 120/58; PULSE 86; RESP 18; TEMP 98.7; O2SAT 98
[2017-02-25 01:39] VITALS: BP 118/63; PULSE 77; RESP 18; TEMP 98.7; O2SAT 98
[2017-02-25 05:28] VITALS: BP 126/59; PULSE 77; RESP 18; TEMP 97.8; O2SAT 97
[2017-02-25 08:37] VITALS: BP 181/77; PULSE 78; RESP 18; TEMP 97.8; O2SAT 99
[2017-02-25] MEDS: METOPROLOL TARTRATE 25 MG TAB PO SCH (08:56)
[2017-02-25] MEDS: PANTOPRAZOLE SODIUM 40 MG VIAL IV PUSH SCH (08:56)
[2017-02-25] MEDS: MEGESTROL ACETATE 40 MG TAB PO SCH ×2 (08:57→13:17)
[2017-02-25] MEDS: DULoxetine HCl DR 30 MG CAP PO SCH (08:57)
[2017-02-25] MEDS: LISINOPRIL 20 MG TAB PO SCH (08:57)
[2017-02-25 11:00] LABS: AUTOMATED NEUTROPHIL # 3.1 TH/MM3 (1.8-7.7); BASOPHIL # 0.1 TH/MM3 (0-0.2); BASOPHIL % 1.1 % (0.0-2.0); EOSINOPHIL # 0.5 TH/MM3 (0-0.4); EOSINOPHIL % 9.3 % (0.0-4.0); HEMATOCRIT 30.8 % (35.0-46.0); HEMO FLAGS DIFF FINAL; LYMPH % 27.8 % (9.0-44.0); LYMPHOCYTE # 1.6 TH/MM3 (1.0-4.8); MEAN CELL VOLUME 86.7 FL (80.0-100.0); MEAN CORPUSCULAR HEMOGLOBIN 28.1 PG (27.0-34.0); MEAN CORPUSCULAR HGB CONC 32.4 % (32.0-36.0); MONO % 8.1 % (0.0-8.0); NEUT % 53.7 % (16.0-70.0); PLATELET COUNT 288 TH/MM3 (150-450); RED BLOOD COUNT 3.55 MIL/MM3 (4.00-5.30); WHITE BLOOD COUNT 5.8 TH/MM3 (4.0-11.0)
[2017-02-25 11:28] LABS: BICARBONATE 24.1 MEQ/L (21.0-32.0); MAGNESIUM 1.4 MG/DL (1.5-2.5); POTASSIUM 4.8 MEQ/L (3.5-5.1)
--- NOTE | 2017-02-25 11:45 | HHI.PR ---
Subjective Remarks no events overnight. Objective Vitals Vital Signs Date Time Temp Pulse Resp B/P Pulse Ox O2 Delivery O2 Flow Rate FiO2 02/25/17 08:37 97.8 78 18 181/77 99 02/25/17 05:28 97.8 77 18 126/59 97 02/25/17 01:39 98.7 77 18 118/63 98 02/24/17 21:40 98.7 86 18 120/58 98 02/24/17 15:53 98.2 90 18 133/62 99 02/24/17 11:47 98.8 84 16 134/60 96 02/24/17 02/24/17 02/25/17 15:00 23:00 07:00 Output Total 1000 ml Balance -1000 ml Output Urine Total 1000 ml Result Diagram: 02/25/17 1020 02/25/17 1020 Imaging Last Impressions Head CT 02/22/17 1236 Signed Impressions: Service Date/Time: Wednesday, February 22, 2017 15:06 - CONCLUSION: 1. No acute intracranial abnormality. Jh Hernandez MD Chest X-Ray 02/22/17 1233 Signed Impressions: Service Date/Time: Wednesday, February 22, 2017 12:30 - CONCLUSION: 1. COPD changes with minimal right basilar effusion. Jh Hernandez MD Abdomen Ultrasound 02/22/17 0000 Signed Impressions: Service Date/Time: Wednesday, February 22, 2017 17:55 - CONCLUSION: Small isodense liver with ascites and pleural effusions. Small echogenic kidneys without obstruction. 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 Shafer is a pleasant 76 y/o WF with HTN, GERD, ulcerative esophagitis , pyloric stenosis and depression. - She was recently hospitalized for 3 weeks in -12/22/2016 and per the pts daughter, Annita, the patient has slowly been in decline since her last admission. The pt refuses to participate in PT or really move around much at home at all. The pt has reportedly not been eating a lot but has been maintaining her weight. - She has noted significant edema in bilateral LE and abdominal distension at admission and pts daughter states that this has been progressively worsening over the last 3 weeks. - The pts daughter reports that over the last 3 days the pt has been more confused intermittently then last night this significantly worsened and the pt was up most of the night calling her daughter , Annita, for various reasons and was hallucinating that family members were in the room who had been for several years. - Then this morning when Annita arrived to the house the pt was unarousable appeared tachypneic. - The pts labs at admission were essentially unrevealing but her albumin was low at 1.6 and total protein was low at 4.4. - Head CT was negative for any acute changes. - CXR noted COPD changes and minimal right basilar effusion. - Pt states that she has been eating and daughter confirms that she does eat but does not eat much when she does eat. - Pt has been refusing to eat so far during this admission. She states that she has no appetite. - Her previous 2D echo in 11/2016 noted EF 55-60%, mild mitral regurg and mild tricuspid regurg - Repeat 2D echo ordered - Cont. Lasix 20mg IV BID and Albumin 25grams BID prior to Lasix administration - Monitor labs closely and replace electrolytes - Abd US --> Small isodense liver with ascites and pleural effusions. Small echogenic kidneys without obstruction. No reported hx of liver cirrhosis - TSH/Free T4, B12 level, Folate level all WNL - No signs of infection at admission, WBC count normal, pt is afebrile - Supportive care - Pt refuses to go to SNF. - Pt refusing to eat. She is not a candidate for PEG tube with the ascites. - The patients daughter does tell me that she had been entertaining the idea enrolling the patient in Hospice for failure to thrive as the pt has been very resistant to participating in any physical therapy or moving much at all and hasn't been eating very much. - Pt had been a no code DNR during her last admission and pt wises to continue this. This was discussed with the pts daughter as well and she confirms that this is her mothers wishes. pt and family meeting with hospice today. d/c once hospice arrangement made home vs care center. (2) Edema Status: Acute Plan: - See above. - This may be more of a dependent edema related to malnutrition/immobility but will r/o other causes. - Daily weight - Monitor I&Os closely during diuresis (3) Altered mental status Status: Acute Plan: - See above. - Pt currently alert and oriented to self and place and is able to tell me its 2017 - She has hx of depression and takes Cymbalta. No new changes in this med per the daughter. - Further workup as above. (4) HTN (hypertension) Status: Chronic Plan: - Cont. home meds - monitor (5) PUD (peptic ulcer disease) Status: Chronic Plan: - Protonix 40mg IV BID - Zofran PRN (6) Depression Status: Chronic Plan: - Cont. home meds (7) GERD (gastroesophageal reflux disease) Status: Chronic (8) COPD (chronic obstructive pulmonary disease) Status: Chronic Plan: - Duonebs PRN Problem Qualifiers (1) Altered mental status: Qualified Code: R41.0 - Disorientation Stevenson Cervantes MD Feb 25, 2017 11:45
[2017-02-25 12:37] VITALS: BP 121/59; PULSE 74; RESP 16; TEMP 98.8; O2SAT 99
== END 2017-02-25 16:36 | disposition hospice, inpatient (51) | DRG 641 ==
LOC: NEPC 12:05 → NEDA 15:58 → NEPFCDU 18:49 → OBSVTOIN 02-23 11:33
PROVIDERS: ADMIT Hospitalist; ATTEND Hospitalist
DX: R62.7 Adult failure to thrive (principal); E46 Unspecified protein-calorie malnutrition; R18.8 Other ascites; Z68.1 Body mass index [BMI] 19.9 or less, adult; J44.9 Chronic obstructive pulmonary disease, unspecified; R41.82 Altered mental status, unspecified; I10 Essential (primary) hypertension; F32.9 Major depressive disorder, single episode, unspecified; F41.9 Anxiety disorder, unspecified; H91.90 Unspecified hearing loss, unspecified ear; M19.90 Unspecified osteoarthritis, unspecified site; K21.9 Gastro-esophageal reflux disease without esophagitis; Z96.651 Presence of right artificial knee joint; Z66 Do not resuscitate; Z87.891 Personal history of nicotine dependence; Z87.11 Personal history of peptic ulcer disease
CPT/HCPCS: 70450; 71010; 76700; 80048; 80053; 81001; 82550; 82607; 82746; 83735; 84439; 84443; 84484; 85025; 85610; 85730; 87205; 87328; 87329; 87493; 93005; 93306; 96374; C9113; G0378; G8987-GP; G8988-GP; J1940; J2405; P9047